=== PATIENT | male | born 1975 | race Caucasian/White ===

== ENCOUNTER 2019-02-03 15:05 | Inpatient (IN) | payer BC ==
[2019-02-03] MEDS ORDERED: Sodium Chloride 0.9% 10 ML Syringe FLUSH PRN (15:30)
[2019-02-03] MEDS ORDERED: Lactated Ringers 1,000 ML IV SCH (15:30)
[2019-02-03] MEDS ORDERED: diphenhydrAMINE 50 MG/ML SDV IVPUSH ONE (15:30)
[2019-02-03] MEDS ORDERED: LORazepam 2 MG/ML SDV IVPUSH ONE ×2 (15:32→18:39)
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
[2019-02-03] MEDS ORDERED: Lactated Ringers 1,000 ML IV ONE (18:21)
[2019-02-03] MEDS ORDERED: Multivitamins,Therapeutic Tab PO ONE (20:54)
[2019-02-03] MEDS ORDERED: Ondansetron 4 MG Tab.DIS PO PRN (21:01)
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
[2019-02-03] MEDS: Thiamine 200 MG/2 ML MDV IVPUSH SCH (21:41)
[2019-02-03] MEDS: Ondansetron 4 MG/2 ML SDV IV PRN (21:44)
[2019-02-03] MEDS: Pantoprazole 40 MG Vial IV SCH (21:49)
[2019-02-03] MEDS: Folic Acid 1 MG Tab PO SCH (21:55)
[2019-02-03] MEDS: LORazepam 1 MG Tab PO SCH (21:57)
[2019-02-03] MEDS: Nicotine 21 MG/24 Hr Patch TRDERM SCH (21:58)
[2019-02-03] MEDS: Dextrose 5%-Lactated Ringers 1,000 ML IV SCH (22:20)
[2019-02-04] MEDS: LORazepam 1 MG Tab PO SCH ×10 (01:18→23:56)
[2019-02-04] MEDS: Dextrose 5%-Lactated Ringers 1,000 ML IV SCH (05:07)
[2019-02-04] MEDS ORDERED: Potassium Chloride 10 MEQ/5 ML SDV IV ONE (07:15)
[2019-02-04] MEDS: Potassium Chloride 20 MEQ Tab.ER PO SCH ×2 (08:45→20:39)
[2019-02-04] MEDS: Folic Acid 1 MG Tab PO SCH (08:46)
[2019-02-04] MEDS: Thiamine 200 MG/2 ML MDV IVPUSH SCH (08:49)
[2019-02-04] MEDS: Pantoprazole 40 MG Vial IV SCH (08:50)
[2019-02-04] MEDS: Nicotine 21 MG/24 Hr Patch TRDERM SCH ×2 (08:51→20:43)
[2019-02-04] MEDS: Potassium Chloride 10 MEQ in Premix Bag 1 BAG IV SCH ×4 (08:53→14:28)
--- NOTE | 2019-02-04 13:29 | CR ---
Chest: Frontal view of the chest was obtained. Comparison: No prior chest x-ray. Heart size and mediastinum are normal. Lungs are clear. Bony structures are grossly intact. Impression: 1. Nothing acute is seen on frontal chest x-ray. Diagnostic code #1 I agree with preliminary report issued by [facility] ([facility] report finalized on 02/03/19, 10:52 PM Central Time).
[2019-02-04] MEDS ORDERED: Potassium Chloride 20 MEQ Tab.ER PO ONE (13:31)
[2019-02-04] MEDS: Ondansetron 4 MG/2 ML SDV IV PRN (13:52)
[2019-02-04] MEDS ORDERED: Dextrose 5%-Lact Ringers w/KCl 1,000 ML IV SCH (14:45)
--- NOTE | 2019-02-04 16:14 | PCM.PN ---
- General Info Date of Service: 02/04/19 Admission Dx/Problem (Free Text): Admission Diagnosis/Problem Admission Diagnosis/Problem Alcohol withdrawal syndrome Subjective Update: Patient did well overnight. He did not receive any unscheduled doses of lorazepam. This morning I decreased him to 1 mg of Ativan every 4 hours and late morning, early afternoon he did receive 1 more milligram orally. He is doing well now. He has been seen by discharge planning and patient has services in line to help with rehabilitation. - Review of Systems General: Reports: Fatigue HEENT: Reports: No Symptoms. Denies: Headaches, Visual Changes Pulmonary: Reports: No Symptoms. Denies: Shortness of Breath, Cough Cardiovascular: Reports: No Symptoms. Denies: Chest Pain - Patient Data Vitals - Most Recent: Last Vital Signs Temp 97.1 F 02/04/19 15:44 Pulse 76 02/04/19 02:01 Resp 16 02/04/19 15:44 BP 130/89 02/04/19 15:44 Pulse Ox 99 02/04/19 15:44 Weight - Most Recent: 150 lb 1.6 oz I&O - Last 24 Hours: Intake & Output 02/04/19 02/04/19 02/04/19 06:59 14:59 22:59 Intake Total 1475 60 1200 Output Total 675 750 Balance 800 -690 1200 Lab Results Last 24 Hours: Laboratory Results - last 24 hr 02/03/19 02/03/19 02/03/19 Range/Units 16:00 16:00 17:15 WBC (4.23-9.07) K/mm3 RBC (4.63-6.08) M/mm3 Hgb (13.7-17.5) gm/L Hct (40.1-51.0) % MCV (79.0-92.2) fl MCH (25.7-32.2) pg MCHC (32.2-35.5) g/dl RDW Std Deviation (35.1-43.9) fL Plt Count (163-337) K/mm3 MPV (9.4-12.3) fl Neut % (Auto) (34.0-67.9) % Lymph % (Auto) (21.8-53.1) % [place] % (Auto) (5.3-12.2) % Eos % (Auto) (0.8-7.0) Baso % (Auto) (0.1-1.2) % Neut # (Auto) (1.78-5.38) K/mm3 Lymph # (Auto) (1.32-3.57) K/mm3 [place] # (Auto) (0.30-0.82) K/mm3 Eos # (Auto) (0.04-0.54) K/mm3 Baso # (Auto) (0.01-0.08) K/mm3 Manual Slide Review Abnormal smear PT (9.5-12.1) SECONDS INR APTT (24-31) SECONDS Sodium 134 L (136-145) mEq/L Potassium 3.6 (3.5-5.1) mEq/L Chloride 89 L (98-107) mEq/L Carbon Dioxide 24 (21-32) mEq/L Anion Gap 24.6 H (5-15) BUN 27 H (7-18) mg/dL Creatinine 1.0 (0.7-1.3) mg/dL Est Cr Clr Drug Dosing 93.55 mL/min Estimated GFR (MDRD) > 60 (>60) mL/min BUN/Creatinine Ratio 27.0 H (14-18) Glucose 134 H (74-106) mg/dL Calcium 9.1 (8.5-10.1) mg/dL Phosphorus (2.6-4.7) mg/dL Magnesium 1.8 (1.8-2.4) mg/dl Total Bilirubin 5.0 H (0.2-1.0) mg/dL AST 304 H (15-37) U/L ALT 209 H (16-63) U/L Alkaline Phosphatase 87 (46-116) U/L Total Protein 7.8 (6.4-8.2) g/dl Albumin 4.3 (3.4-5.0) g/dl Globulin 3.5 gm/dL Albumin/Globulin Ratio 1.2 (1-2) TSH 3rd Generation 1.915 (0.358-3.74) uIU/mL Urine Opiates Screen Negative (TFSRRP=744) Ur Buprenorphine Scrn Negative (CUTOFF=10) Ur Oxycodone Screen Negative (OXU5OM=230) Urine Methadone Screen Negative (XTW4HK=114) Ur Propoxyphene Screen Negative (WQUXNF=720) Ur Barbiturates Screen Negative (IWPVKQ=268) Ur Tricyclics Screen Negative (SGOPCR=345) Ur Phencyclidine Scrn Negative (CUTOFF=25) Ur Amphetamine Screen Negative (OOBQWF=151) U Methamphetamines Scrn Negative (YZYKHI=210) U Benzodiazepines Scrn Negative (ZMVAXC=463) U Cocaine Metab Screen Negative (CUPLKP=633) U Marijuana (THC) Screen Negative (CUTOFF=50) Ethyl Alcohol 0.04 (0.00) gm% 02/03/19 02/04/19 02/04/19 Range/Units 21:25 05:03 05:03 WBC 4.08 L (4.23-9.07) K/mm3 RBC 3.82 L (4.63-6.08) M/mm3 Hgb 11.5 L D (13.7-17.5) gm/L Hct 34.4 L (40.1-51.0) % MCV 90.1 (79.0-92.2) fl MCH 30.1 (25.7-32.2) pg MCHC 33.4 (32.2-35.5) g/dl RDW Std Deviation 42.8 (35.1-43.9) fL Plt Count 136 L (163-337) K/mm3 MPV 10.4 (9.4-12.3) fl Neut % (Auto) 67.1 (34.0-67.9) % Lymph % (Auto) 19.9 L (21.8-53.1) % [place] % (Auto) 9.1 (5.3-12.2) % Eos % (Auto) 3.2 (0.8-7.0) Baso % (Auto) 0.5 (0.1-1.2) % Neut # (Auto) 2.74 (1.78-5.38) K/mm3 Lymph # (Auto) 0.81 L (1.32-3.57) K/mm3 [place] # (Auto) 0.37 (0.30-0.82) K/mm3 Eos # (Auto) 0.13 (0.04-0.54) K/mm3 Baso # (Auto) 0.02 (0.01-0.08) K/mm3 Manual Slide Review PT 10.6 (9.5-12.1) SECONDS INR 0.97 APTT 23 L (24-31) SECONDS Sodium 133 L (136-145) mEq/L Potassium 3.0 L (3.5-5.1) mEq/L Chloride 97 L (98-107) mEq/L Carbon Dioxide 32 (21-32) mEq/L Anion Gap 7.0 (5-15) BUN 20 H (7-18) mg/dL Creatinine 0.9 (0.7-1.3) mg/dL Est Cr Clr Drug Dosing 104.02 mL/min Estimated GFR (MDRD) > 60 (>60) mL/min BUN/Creatinine Ratio 22.2 H (14-18) Glucose 117 H (74-106) mg/dL Calcium 8.3 L (8.5-10.1) mg/dL Phosphorus 2.7 (2.6-4.7) mg/dL Magnesium 2.0 (1.8-2.4) mg/dl Total Bilirubin 6.2 H (0.2-1.0) mg/dL AST 191 H (15-37) U/L ALT 144 H (16-63) U/L Alkaline Phosphatase 64 (46-116) U/L Total Protein 5.9 L (6.4-8.2) g/dl Albumin 3.3 L (3.4-5.0) g/dl Globulin 2.6 gm/dL Albumin/Globulin Ratio 1.3 (1-2) TSH 3rd Generation (0.358-3.74) uIU/mL Urine Opiates Screen (AHLZUO=902) Ur Buprenorphine Scrn (CUTOFF=10) Ur Oxycodone Screen (WLI4AS=291) Urine Methadone Screen (YMY0RE=947) Ur Propoxyphene Screen (ORBOWI=516) Ur Barbiturates Screen (HFYPNG=940) Ur Tricyclics Screen (DUIHJB=724) Ur Phencyclidine Scrn (CUTOFF=25) Ur Amphetamine Screen (HZJXOR=185) U Methamphetamines Scrn (IYWWOT=215) U Benzodiazepines Scrn (BJKTIM=051) U Cocaine Metab Screen (BTVLQG=187) U Marijuana (THC) Screen (CUTOFF=50) Ethyl Alcohol (0.00) gm% Med Orders - Current: Current Medications Folic Acid (Folic Acid) 1 mg PO DAILY [facility] Stop: 02/05/19 09:01 Last Admin: 02/04/19 08:46 Dose: 1 mg Potassium Cl/Dextrose/Lact Ringer's (D5 Lr With 20 Meq Kcl) 1,000 mls @ 100 mls /hr IV ASDIRECTED CALI Last Admin: 02/04/19 14:51 Dose: 100 mls/hr Lorazepam (Ativan) 1 - 3 mg PO ASDIRECTED CALI; Protocol Last Admin: 02/04/19 13:49 Dose: 1 mg Lorazepam (Ativan) 1 mg PO Q4H [facility] Stop: 02/05/19 09:01 Last Admin: 02/04/19 13:13 Dose: 1 mg Miscellaneous Information (Remove Patch) 1 ea TRDERM DAILY [facility] Last Admin: 02/04/19 09:14 Dose: Not Given Nicotine (Habitrol) 21 mg TRDERM DAILY [facility] Last Admin: 02/04/19 08:51 Dose: 21 mg Ondansetron HCl (Zofran Odt) 4 mg PO Q4H PRN PRN Reason: nausea, able to take PO Ondansetron HCl (Zofran) 4 mg IV Q4H PRN PRN Reason: Nausea/Vomiting Last Admin: 02/04/19 13:52 Dose: 4 mg Pantoprazole Sodium (Protonix) 40 mg PO DAILY@0700 [facility] Potassium Chloride (Klor-Con M20) 20 meq PO BID [facility] Last Admin: 02/04/19 08:45 Dose: 20 meq Sodium Chloride (Saline Flush) 10 ml FLUSH ASDIRECTED PRN PRN Reason: Keep Vein Open Last Admin: 02/03/19 15:53 Dose: 10 ml Thiamine HCl (Vitamin B-1) 100 mg PO DAILY [facility] Discontinued Medications Diphenhydramine HCl (Benadryl) 25 mg IVPUSH ONETIME ONE Stop: 02/03/19 15:31 Last Admin: 02/03/19 15:52 Dose: 25 mg Lactated Ringer's (Ringers, Lactated) 1,000 mls @ 500 mls/hr IV .BOLUS [facility] Last Admin: 02/03/19 15:55 Dose: 500 mls/hr Lactated Ringer's (Ringers, Lactated) 1,000 mls @ 1,000 mls/hr IV .BOLUS ONE Stop: 02/03/19 19:20 Last Admin: 02/03/19 18:34 Dose: 1,000 mls/hr Dextrose/Lactated Ringer's (Dextrose 5%-Lactated Ringers) 1,000 mls @ 150 mls/ hr IV ASDIRECTED [facility] Last Infusion: 02/04/19 08:14 Dose: 100 mls/hr Potassium Chloride 10 meq/ (Premix) 100 mls @ 100 mls/hr IV Q1H [facility] Stop: 02/04/19 11:29 Last Admin: 02/04/19 14:28 Dose: Not Given Lorazepam (Ativan) 2 mg IVPUSH ONETIME ONE Stop: 02/03/19 15:33 Last Admin: 02/03/19 15:49 Dose: 2 mg Lorazepam (Ativan) 2 mg IVPUSH ONETIME ONE Stop: 02/03/19 18:40 Last Admin: 02/03/19 18:44 Dose: 2 mg Lorazepam (Ativan) 2 mg PO Q4H [facility] Last Admin: 02/04/19 05:06 Dose: 2 mg Multivitamins (Thera) 1 each PO ONETIME ONE Stop: 02/03/19 20:55 Last Admin: 02/03/19 21:55 Dose: 1 each Pantoprazole Sodium (Protonix Iv) 40 mg IV DAILY [facility] Last Admin: 02/04/19 08:50 Dose: 40 mg Potassium Chloride (Potassium Chloride) 40 meq IV ONETIME ONE Stop: 02/04/19 07:16 Last Admin: 02/04/19 09:20 Dose: Not Given Potassium Chloride (Klor-Con M20) 40 meq PO ONETIME ONE Stop: 02/04/19 13:32 Last Admin: 02/04/19 13:50 Dose: 40 meq Thiamine HCl (Vitamin B-1) 100 mg IVPUSH DAILY [facility] Last Admin: 02/04/19 08:49 Dose: 100 mg - Exam General: Alert, Oriented HEENT: Pupils Equal, Pupils Reactive Lungs: Clear to Auscultation, Normal Respiratory Effort Cardiovascular: Regular Rate, Regular Rhythm Neurological: No New Focal Deficit Psy/Mental Status: Alert, Depressed - Problem List & Annotations (1) Elevated liver enzymes SNOMED Code(s): 939687567 Code(s): R74.8 - ABNORMAL LEVELS OF OTHER SERUM ENZYMES Status: Acute Current Visit: Yes (2) Elevated blood pressure reading SNOMED Code(s): 59358505 Code(s): R03.0 - ELEVATED BLOOD-PRESSURE READING, W/O DIAGNOSIS OF HTN Status: Acute Current Visit: Yes (3) Alcohol abuse SNOMED Code(s): 60094755 Code(s): F10.10 - ALCOHOL ABUSE, UNCOMPLICATED Status: Acute Current Visit: Yes (4) Alcohol withdrawal syndrome SNOMED Code(s): 526037937 Code(s): F10.239 - ALCOHOL DEPENDENCE WITH WITHDRAWAL, UNSPECIFIED Status: Acute Current Visit: Yes Qualifiers: Complication of substance-induced condition: uncomplicated Qualified Code(s ): F10.230 - Alcohol dependence with withdrawal, uncomplicated - Problem List Review Problem List Initiated/Reviewed/Updated: Yes - My Orders Last 24 Hours: My Active Orders 02/03/19 20:54 Assess Neurological Status [RC] ASDIRECTED CIWAA Assessment [RC] Q1HR Notify Provider [RC] PRN Pulse Oximetry [RC] CONTINUOUS Seizure Precautions [OM.PC] Routine 02/03/19 21:00 Folic Acid 1 mg PO DAILY LORazepam [Ativan] 1 - 3 mg PO ASDIRECTED Nicotine [Habitrol] 21 mg TRDERM DAILY 02/03/19 21:01 Bedrest Bathroom Privileges [RC] ASDIRECTED Height and Weight [RC] 0400 Up With Assistance [RC] ASDIRECTED Consult to Case Management/Decorating Consultant [CONS] Routine Consult to Spiritual Care [CONS] Routine Ondansetron [Zofran ODT] 4 mg PO Q4H PRN Ondansetron [Zofran] 4 mg IV Q4H PRN Resuscitation Status Routine 02/03/19 21:04 Oxygen Therapy [RC] PRN VTE/DVT Education [RC] PER UNIT ROUTINE Vital Signs [RC] Q4HR 02/03/19 21:05 Intake and Output [RC] 04,16 Sequential Compression Device [OM.PC] Per Unit Routine 02/03/19 21:07 Antiembolic Devices [RC] PER UNIT ROUTINE 02/04/19 07:44 Abdomen Comp [US] Routine 02/04/19 09:00 LORazepam [Ativan] 1 mg PO Q4H Potassium Chloride [Klor-Con M20] 20 meq PO BID Remove Patch 1 ea TRDERM DAILY 02/04/19 14:45 Dextrose 5%-Lact Ringers w/KCl [D5 LR with 20 mEq KCl] 1,000 ml IV ASDIRECTED 02/04/19 Lunch Regular Diet [DIET] 04/20/19 07:00 Pantoprazole [ProTONIX] 40 mg PO DAILY@0700 02/05/19 09:00 Thiamine [Vitamin B-1] 100 mg PO DAILY - Plan Plan:: Neurologic: * GCS 15 * Mildly sedated * No focal deficits * Alcohol withdrawal syndrome with [facility] protocol for when necessary Ativan. Ativan 1 mg by mouth every 4 hours overnight and reassess in the morning. Cardiovascular * Hypovolemia - receiving fluid bolus of lactated Ringer's. After he gets his thiamine IV we will switch him to D5 LR with 20 mEq of normal saline at 100 mL per hour * Hypertension and tachycardia likely secondary to alcohol withdrawal. Monitor and should improve as we improve his alcohol withdrawal symptoms Pulmonology * Productive sputum * Chest x-ray negative for infiltrate Gastrointestinal * Start full liquids in the morning. * Complaint of vomiting with red liquid * Protonix 40 mg PO twice a day * Acute hepatitis - AST and ALT have decreased, but total bilirubin has increased to 6.2 * Get ultrasound of the abdomen Renal * Hypovolemia improved * Continue maintenance fluids as above Infectious disease * Normal white blood cell count and no fever. Patient does have crackles in the left lower lung * Chest x-ray were ordered Heme/onc * WBC 4.5, hemoglobin 14.0, platelet 177 Electrolytes * Hypokalemia will be treated with oral potassium. We tried IV potassium but it burned too much. Consults: Discharge planning, spiritual, addiction counselor Discharge plan for tomorrow CODE STATUS: Full code
--- NOTE | 2019-02-04 16:38 | US ---
Abdominal ultrasound: Multiple real-time images of the abdomen were obtained. Comparison: No prior abdominal imaging. Findings: Liver is slightly echogenic as compared to the kidney. This is most likely due to mild fatty infiltration. Sludge is noted within the gallbladder without shadowing gallstones. No gallbladder wall thickening or biliary duct dilatation is seen. Right and left kidneys show no hydronephrosis or mass. Right kidney length is 14.0 cm and left kidney length is 11.2 cm. Spleen size is normal. Aorta shows no aneurysm. Pancreas appears within normal limits. Inferior vena cava is patent. Portal vein shows normal hepatopedal flow. Impression: 1. Fatty infiltration within the liver. 2. Sludge within the gallbladder with no shadowing gallstones or gallbladder wall thickening. No biliary duct dilatation. 3. Other portions of the abdominal ultrasound appear within normal limits. Diagnostic code #2
[2019-02-05] MEDS: LORazepam 1 MG Tab PO SCH ×8 (00:56→21:51)
[2019-02-05] MEDS: Pantoprazole 40 MG Tab.CR PO SCH (06:04)
[2019-02-05] MEDS: Potassium Chloride 20 MEQ Tab.ER PO SCH (08:08)
[2019-02-05] MEDS: Thiamine 100 MG Tab PO SCH (08:09)
[2019-02-05] MEDS: Folic Acid 1 MG Tab PO SCH (08:09)
[2019-02-05] MEDS: Nicotine 21 MG/24 Hr Patch TRDERM SCH ×2 (16:57→21:41)
--- NOTE | 2019-02-05 19:52 | PCM.PN ---
- General Info Date of Service: 02/05/19 Admission Dx/Problem (Free Text): Admission Diagnosis/Problem Admission Diagnosis/Problem Alcohol withdrawal syndrome Subjective Update: February 05, 2019 Patient continues to improve. He is down to Ativan 1 mg by mouth every 4 hours and only need 1 additional dose throughout the day. February 04, 2019 Patient did well overnight. He did not receive any unscheduled doses of lorazepam. This morning I decreased him to 1 mg of Ativan every 4 hours and late morning, early afternoon he did receive 1 more milligram orally. He is doing well now. He has been seen by discharge planning and patient has services in line to help with rehabilitation. Functional Status: Reports: Pain Controlled - Review of Systems General: Reports: No Symptoms HEENT: Reports: No Symptoms Pulmonary: Reports: No Symptoms Cardiovascular: Reports: No Symptoms Gastrointestinal: Reports: No Symptoms. Denies: Abdominal Pain, Constipation - Patient Data Vitals - Most Recent: Last Vital Signs Temp 97.9 F 02/05/19 16:56 Pulse 67 02/05/19 16:56 Resp 16 02/05/19 16:56 BP 138/99 H 02/05/19 16:56 Pulse Ox 100 02/05/19 16:56 Weight - Most Recent: 150 lb 14.4 oz I&O - Last 24 Hours: Intake & Output 02/05/19 02/05/19 02/05/19 06:59 14:59 22:59 Intake Total 1187 240 300 Output Total 500 Balance 1187 240 -200 Lab Results Last 24 Hours: Laboratory Results - last 24 hr 02/05/19 02/05/19 Range/Units 08:29 08:29 WBC 4.94 (4.23-9.07) K/mm3 RBC 4.19 L (4.63-6.08) M/mm3 Hgb 12.8 L (13.7-17.5) gm/L Hct 38.0 L (40.1-51.0) % MCV 90.7 (79.0-92.2) fl MCH 30.5 (25.7-32.2) pg MCHC 33.7 (32.2-35.5) g/dl RDW Std Deviation 42.8 (35.1-43.9) fL Plt Count 135 L (163-337) K/mm3 MPV 10.4 (9.4-12.3) fl Neut % (Auto) 66.7 (34.0-67.9) % Lymph % (Auto) 18.2 L (21.8-53.1) % [place] % (Auto) 10.3 (5.3-12.2) % Eos % (Auto) 4.0 (0.8-7.0) Baso % (Auto) 0.6 (0.1-1.2) % Neut # (Auto) 3.29 (1.78-5.38) K/mm3 Lymph # (Auto) 0.90 L (1.32-3.57) K/mm3 [place] # (Auto) 0.51 (0.30-0.82) K/mm3 Eos # (Auto) 0.20 (0.04-0.54) K/mm3 Baso # (Auto) 0.03 (0.01-0.08) K/mm3 Sodium 136 (136-145) mEq/L Potassium 3.7 (3.5-5.1) mEq/L Chloride 101 (98-107) mEq/L Carbon Dioxide 25 (21-32) mEq/L Anion Gap 13.7 (5-15) BUN 9 (7-18) mg/dL Creatinine 0.8 (0.7-1.3) mg/dL Est Cr Clr Drug Dosing 117.64 mL/min Estimated GFR (MDRD) > 60 (>60) mL/min BUN/Creatinine Ratio 11.3 L (14-18) Glucose 109 H (74-106) mg/dL Calcium 9.2 (8.5-10.1) mg/dL Magnesium 1.8 (1.8-2.4) mg/dl Total Bilirubin 4.5 H (0.2-1.0) mg/dL AST 192 H (15-37) U/L ALT 166 H (16-63) U/L Alkaline Phosphatase 74 (46-116) U/L Total Protein 6.6 (6.4-8.2) g/dl Albumin 3.7 (3.4-5.0) g/dl Globulin 2.9 gm/dL Albumin/Globulin Ratio 1.3 (1-2) Med Orders - Current: Current Medications Lorazepam (Ativan) 1 - 3 mg PO ASDIRECTED [facility]I; Protocol Last Admin: 02/05/19 16:56 Dose: 1 mg Miscellaneous Information (Remove Patch) 1 ea TRDERM BEDTIME [facility] Last Admin: 02/04/19 20:44 Dose: 1 ea Nicotine (Habitrol) 21 mg TRDERM BEDTIME [facility] Last Admin: 02/05/19 16:57 Dose: 21 mg Ondansetron HCl (Zofran Odt) 4 mg PO Q4H PRN PRN Reason: nausea, able to take PO Ondansetron HCl (Zofran) 4 mg IV Q4H PRN PRN Reason: Nausea/Vomiting Last Admin: 02/04/19 13:52 Dose: 4 mg Pantoprazole Sodium (Protonix) 40 mg PO DAILY@0700 [facility] Last Admin: 02/05/19 06:04 Dose: 40 mg Potassium Chloride (Klor-Con M20) 20 meq PO BID [facility] Last Admin: 02/05/19 08:08 Dose: 20 meq Sodium Chloride (Saline Flush) 10 ml FLUSH ASDIRECTED PRN PRN Reason: Keep Vein Open Last Admin: 02/03/19 15:53 Dose: 10 ml Thiamine HCl (Vitamin B-1) 100 mg PO DAILY [facility] Last Admin: 02/05/19 08:09 Dose: 100 mg Discontinued Medications Diphenhydramine HCl (Benadryl) 25 mg IVPUSH ONETIME ONE Stop: 02/03/19 15:31 Last Admin: 02/03/19 15:52 Dose: 25 mg Folic Acid (Folic Acid) 1 mg PO DAILY [facility] Stop: 02/05/19 09:01 Last Admin: 02/05/19 08:09 Dose: 1 mg Lactated Ringer's (Ringers, Lactated) 1,000 mls @ 500 mls/hr IV .BOLUS [facility] Last Admin: 02/03/19 15:55 Dose: 500 mls/hr Lactated Ringer's (Ringers, Lactated) 1,000 mls @ 1,000 mls/hr IV .BOLUS ONE Stop: 02/03/19 19:20 Last Admin: 02/03/19 18:34 Dose: 1,000 mls/hr Dextrose/Lactated Ringer's (Dextrose 5%-Lactated Ringers) 1,000 mls @ 150 mls/ hr IV ASDIRECTED [facility] Last Infusion: 02/04/19 08:14 Dose: 100 mls/hr Potassium Chloride 10 meq/ (Premix) 100 mls @ 100 mls/hr IV Q1H [facility] Stop: 02/04/19 11:29 Last Admin: 02/04/19 14:28 Dose: Not Given Potassium Cl/Dextrose/Lact Ringer's (D5 Lr With 20 Meq Kcl) 1,000 mls @ 100 mls /hr IV ASDIRECTED [facility] Last Admin: 02/04/19 14:51 Dose: 100 mls/hr Lorazepam (Ativan) 2 mg IVPUSH ONETIME ONE Stop: 02/03/19 15:33 Last Admin: 02/03/19 15:49 Dose: 2 mg Lorazepam (Ativan) 2 mg IVPUSH ONETIME ONE Stop: 02/03/19 18:40 Last Admin: 02/03/19 18:44 Dose: 2 mg Lorazepam (Ativan) 2 mg PO Q4H [facility] Last Admin: 02/04/19 05:06 Dose: 2 mg Lorazepam (Ativan) 1 mg PO Q4H [facility] Stop: 02/05/19 09:01 Last Admin: 02/05/19 08:09 Dose: 1 mg Miscellaneous Information (Remove Patch) 1 ea TRDERM DAILY [facility] Last Admin: 02/04/19 09:14 Dose: Not Given Multivitamins (Thera) 1 each PO ONETIME ONE Stop: 02/03/19 20:55 Last Admin: 02/03/19 21:55 Dose: 1 each Nicotine (Habitrol) 21 mg TRDERM DAILY [facility] Last Admin: 02/04/19 08:51 Dose: 21 mg Pantoprazole Sodium (Protonix Iv) 40 mg IV DAILY [facility] Last Admin: 02/04/19 08:50 Dose: 40 mg Potassium Chloride (Potassium Chloride) 40 meq IV ONETIME ONE Stop: 02/04/19 07:16 Last Admin: 02/04/19 09:20 Dose: Not Given Potassium Chloride (Klor-Con M20) 40 meq PO ONETIME ONE Stop: 02/04/19 13:32 Last Admin: 02/04/19 13:50 Dose: 40 meq Thiamine HCl (Vitamin B-1) 100 mg IVPUSH DAILY [facility] Last Admin: 02/04/19 08:49 Dose: 100 mg - Exam General: Alert, Oriented HEENT: Pupils Equal, Pupils Reactive Neck: Supple Lungs: Clear to Auscultation, Normal Respiratory Effort Cardiovascular: Regular Rate, Regular Rhythm Extremities: Normal Inspection, Normal Range of Motion, Non-Tender, No Pedal Edema - Problem List & Annotations (1) Elevated liver enzymes SNOMED Code(s): 506894908 Code(s): R74.8 - ABNORMAL LEVELS OF OTHER SERUM ENZYMES Status: Acute Current Visit: Yes (2) Elevated blood pressure reading SNOMED Code(s): 91572655 Code(s): R03.0 - ELEVATED BLOOD-PRESSURE READING, W/O DIAGNOSIS OF HTN Status: Acute Current Visit: Yes (3) Alcohol abuse SNOMED Code(s): 37720992 Code(s): F10.10 - ALCOHOL ABUSE, UNCOMPLICATED Status: Acute Current Visit: Yes (4) Alcohol withdrawal syndrome SNOMED Code(s): 097340301 Code(s): F10.239 - ALCOHOL DEPENDENCE WITH WITHDRAWAL, UNSPECIFIED Status: Acute Current Visit: Yes Qualifiers: Complication of substance-induced condition: uncomplicated Qualified Code(s ): F10.230 - Alcohol dependence with withdrawal, uncomplicated - Problem List Review Problem List Initiated/Reviewed/Updated: Yes - My Orders Last 24 Hours: My Active Orders 02/04/19 21:00 Nicotine [Habitrol] 21 mg TRDERM BEDTIME Remove Patch 1 ea TRDERM BEDTIME 02/05/19 07:00 Pantoprazole [ProTONIX] 40 mg PO DAILY@0700 02/05/19 08:28 Patient Status [ADT] Routine 02/05/19 09:00 Thiamine [Vitamin B-1] 100 mg PO DAILY - Plan Plan:: Neurologic: * GCS 15 * Mildly sedated * No focal deficits * Alcohol withdrawal syndrome with [facility] protocol for when necessary Ativan. Stop scheduled Ativan and only use when necessary. Cardiovascular * Hypovolemia - received fluid bolus of lactated Ringer's. After he gets his thiamine IV we will switch him to D5 LR with 20 mEq of normal saline at 100 mL per hour * Hypertension and tachycardia likely secondary to alcohol withdrawal. Monitor and should improve as we improve his alcohol withdrawal symptoms Pulmonology * Productive sputum * Chest x-ray negative for infiltrate Gastrointestinal * Advancing diet. * Nausea and vomiting resolved * Protonix 40 mg PO twice a day * Acute hepatitis - AST and ALT have decreased, and total bilirubin is decreasing * ultrasound of the abdomen Showed fatty infiltration of the liver Renal * Hypovolemia improved * DC fluids Infectious disease * Normal white blood cell count and no fever. Patient does have crackles in the left lower lung * Chest xray normal Heme/onc * CBC normal Electrolytes * Hypokalemia resolved Consults: Discharge planning, spiritual, addiction counselor Discharge plan for tomorrow CODE STATUS: Full code
[2019-02-06] MEDS: LORazepam 1 MG Tab PO SCH (03:26)
[2019-02-06] MEDS: Pantoprazole 40 MG Tab.CR PO SCH (06:20)
[2019-02-06] MEDS ORDERED: Magnesium Oxide 400 MG Tab PO ONE (09:28)
[2019-02-06] MEDS: Thiamine 100 MG Tab PO SCH (12:09)
--- NOTE | 2019-02-06 12:47 | PCM.DCSUM1 ---
Discharge Summary - Hospital Course HPI Initial Comments: This is a 43-year-old male who was brought to the emergency room via EMS. Patient came in because of not feeling well, nausea, and vomiting. He states he has had some red in his vomitus. He has been a heavy drinker for the last 2 months with up to 1800 mL of whiskey the last 3-4 days. His last drink was last night, but he woke up at 2:30 in the morning with nausea and vomiting. 2 months ago he moved from [place], [place] to [place]. He left his and daughter has started drinking heavily. He states he has not been eating or drinking water for last several days. He's had a 15 pound weight loss over the last 2 months. He has been a binge drinker off and on for years. He has never had significant alcohol withdrawal and has never been hospitalized. He states he does have some reflux. Currently patient states that if he stairs with light it seems to play funny tricks on him in twisting turns. He is hearing voices of his left ureter. The last one to 2 weeks. He does chew tobacco. Approximately half a can per day. He currently denies any abdominal pain but does complain of cough. He denies any fever or chills. He has no black tarry stools. He has been spitting up sputum which is clear. He does complain of some shaking. He has some abdominal cramping at times but not currently. Brief History: Patient was initially treated in the ICU with scheduled doses of Ativan and we've weaned him down ultimately to as needed. He did have some episodes of tachycardia on the day before discharge with ambulation that has mostly resolved. Patient is planning on following up with and his pentecostal. Diagnosis: Stroke: No - Discharge Data Discharge Date: 02/06/19 Discharge Disposition: Home, Self-Care 01 Condition: Good - Discharge Diagnosis/Problem(s) (1) Elevated liver enzymes SNOMED Code(s): 668100055 ICD Code: R74.8 - ABNORMAL LEVELS OF OTHER SERUM ENZYMES Status: Acute Current Visit: Yes (2) Elevated blood pressure reading SNOMED Code(s): 83024408 ICD Code: R03.0 - ELEVATED BLOOD-PRESSURE READING, W/O DIAGNOSIS OF HTN Status: Acute Current Visit: Yes (3) Alcohol abuse SNOMED Code(s): 93216139 ICD Code: F10.10 - ALCOHOL ABUSE, UNCOMPLICATED Status: Acute Current Visit: Yes (4) Alcohol withdrawal syndrome SNOMED Code(s): 493587664 ICD Code: F10.239 - ALCOHOL DEPENDENCE WITH WITHDRAWAL, UNSPECIFIED Status : Acute Current Visit: Yes Qualifiers: Complication of substance-induced condition: uncomplicated Qualified Code(s ): F10.230 - Alcohol dependence with withdrawal, uncomplicated - Patient Summary/Data Consults: Consultations 02/03/19 21:01 Consult to Case Management/Wash Box Operator [CONS] Routine Consult to Spiritual Care [CONS] Routine - Patient Instructions Diet: Usual Diet as Tolerated Activity: As Tolerated Driving: Do Not Drive (May drive tomorrow) Showering/Bathing: May Shower Notify Provider of: Nausea and/or Vomiting - Discharge Plan *PRESCRIPTION DRUG MONITORING PROGRAM REVIEWED*: Not Applicable *COPY OF PRESCRIPTION DRUG MONITORING REPORT IN PATIENT ANGEL: Not Applicable Prescriptions/Med Rec: LORazepam [Ativan] 1 mg PO BEDTIME PRN #2 tablet PRN Reason: Insomnia Thiamine [Vitamin B-1] 100 mg PO DAILY #30 tablet Home Medications: Home Meds Omeprazole 20 mg PO DAILY 02/03/19 [History] LORazepam [Ativan] 1 mg PO BEDTIME PRN #2 tablet 02/06/19 [Rx] Thiamine [Vitamin B-1] 100 mg PO DAILY #30 tablet 02/06/19 [Rx] Oxygen Therapy Mode: Room Air Patient Handouts: Alcohol Use Disorder, Liver Function Tests, Recovering From Addiction Referrals: Arun Bass MD [Physician] - (Please call Dr. Del Angel's office at [phone], and schedule and apt. in 7-10 days. ) - Discharge Summary/Plan Comment DC Time >30 min.: Yes Discharge Summary/Plan Comment: Patient came in for alcohol detox and did well. On day of discharge he is stable , has negative CIWA, and not receiving any when necessary Ativan. He does request Ativan 1 mg 4 bedtime for the next couple nights because his day night is mixed up. Patient plans on establishing with Dr. Del Angel is a new patient. Patient also has plans on following up with and his pentecostal. He was seen by substance abuse counselor while in the hospital as well as our business planner and social science analyst. - General Info Date of Service: 02/06/19 Admission Dx/Problem (Free Text: Admission Diagnosis/Problem Admission Diagnosis/Problem Alcohol withdrawal syndrome Subjective Update: February 06, 2019 Patient had a couple of episodes of tachycardia up to 150 with ambulation and when he was going to the bathroom. That has resolved and he was walking the halls with his pulse staying in the low 100s. February 05, 2019 Patient continues to improve. He is down to Ativan 1 mg by mouth every 4 hours and only need 1 additional dose throughout the day. February 04, 2019 Patient did well overnight. He did not receive any unscheduled doses of lorazepam. This morning I decreased him to 1 mg of Ativan every 4 hours and late morning, early afternoon he did receive 1 more milligram orally. He is doing well now. He has been seen by discharge planning and patient has services in line to help with rehabilitation. Functional Status: Reports: Pain Controlled - Review of Systems General: Reports: No Symptoms. Denies: Fever, Weakness, Fatigue HEENT: Reports: No Symptoms Pulmonary: Reports: No Symptoms. Denies: Shortness of Breath, Cough Cardiovascular: Reports: No Symptoms. Denies: Chest Pain, Dyspnea on Exertion - Patient Data Vitals - Most Recent: Last Vital Signs Temp 97.3 F 02/06/19 08:11 Pulse 65 02/06/19 08:11 Resp 16 02/06/19 08:11 BP 117/79 02/06/19 08:11 Pulse Ox 99 02/06/19 08:11 Weight - Most Recent: 150 lb 8 oz I&O - Last 24 hours: Intake & Output 02/05/19 02/06/19 02/06/19 22:59 06:59 14:59 Intake Total 300 1240 240 Output Total 500 Balance -200 1240 240 Lab Results - Last 24 hrs: Laboratory Results - last 24 hr 02/06/19 02/06/19 Range/Units 06:05 06:05 WBC 5.53 (4.23-9.07) K/mm3 RBC 4.28 L (4.63-6.08) M/mm3 Hgb 13.1 L (13.7-17.5) gm/L Hct 38.9 L (40.1-51.0) % MCV 90.9 (79.0-92.2) fl MCH 30.6 (25.7-32.2) pg MCHC 33.7 (32.2-35.5) g/dl RDW Std Deviation 43.3 (35.1-43.9) fL Plt Count 168 (163-337) K/mm3 MPV 10.7 (9.4-12.3) fl Neut % (Auto) 65.3 (34.0-67.9) % Lymph % (Auto) 18.4 L (21.8-53.1) % Talbot % (Auto) 11.8 (5.3-12.2) % Eos % (Auto) 3.6 (0.8-7.0) Baso % (Auto) 0.5 (0.1-1.2) % Neut # (Auto) 3.61 (1.78-5.38) K/mm3 Lymph # (Auto) 1.02 L (1.32-3.57) K/mm3 Talbot # (Auto) 0.65 (0.30-0.82) K/mm3 Eos # (Auto) 0.20 (0.04-0.54) K/mm3 Baso # (Auto) 0.03 (0.01-0.08) K/mm3 Sodium 133 L (136-145) mEq/L Potassium 4.1 (3.5-5.1) mEq/L Chloride 97 L (98-107) mEq/L Carbon Dioxide 27 (21-32) mEq/L Anion Gap 13.1 (5-15) BUN 10 (7-18) mg/dL Creatinine 0.8 (0.7-1.3) mg/dL Est Cr Clr Drug Dosing 117.33 mL/min Estimated GFR (MDRD) > 60 (>60) mL/min BUN/Creatinine Ratio 12.5 L (14-18) Glucose 107 H (74-106) mg/dL Calcium 9.1 (8.5-10.1) mg/dL Magnesium 1.6 L (1.8-2.4) mg/dl Total Bilirubin 2.8 H (0.2-1.0) mg/dL AST 270 H (15-37) U/L ALT 227 H (16-63) U/L Alkaline Phosphatase 90 (46-116) U/L Total Protein 7.0 (6.4-8.2) g/dl Albumin 3.8 (3.4-5.0) g/dl Globulin 3.2 gm/dL Albumin/Globulin Ratio 1.2 (1-2) Med Orders - Current: Current Medications Lorazepam (Ativan) 1 - 3 mg PO ASDIRECTED [facility]; Protocol Last Admin: 02/06/19 03:26 Dose: 1 mg Miscellaneous Information (Remove Patch) 1 ea TRDERM BEDTIME [facility] Last Admin: 02/05/19 21:41 Dose: Not Given Nicotine (Habitrol) 21 mg TRDERM BEDTIME [facility] Last Admin: 02/05/19 21:41 Dose: Not Given Ondansetron HCl (Zofran Odt) 4 mg PO Q4H PRN PRN Reason: nausea, able to take PO Ondansetron HCl (Zofran) 4 mg IV Q4H PRN PRN Reason: Nausea/Vomiting Last Admin: 02/04/19 13:52 Dose: 4 mg Pantoprazole Sodium (Protonix) 40 mg PO DAILY@0700 [facility] Last Admin: 02/06/19 06:20 Dose: 40 mg Sodium Chloride (Saline Flush) 10 ml FLUSH ASDIRECTED PRN PRN Reason: Keep Vein Open Last Admin: 02/03/19 15:53 Dose: 10 ml Thiamine HCl (Vitamin B-1) 100 mg PO DAILY [facility] Last Admin: 02/06/19 12:09 Dose: 100 mg Discontinued Medications Diphenhydramine HCl (Benadryl) 25 mg IVPUSH ONETIME ONE Stop: 02/03/19 15:31 Last Admin: 02/03/19 15:52 Dose: 25 mg Folic Acid (Folic Acid) 1 mg PO DAILY [facility] Stop: 02/05/19 09:01 Last Admin: 02/05/19 08:09 Dose: 1 mg Lactated Ringer's (Ringers, Lactated) 1,000 mls @ 500 mls/hr IV .BOLUS [facility] Last Admin: 02/03/19 15:55 Dose: 500 mls/hr Lactated Ringer's (Ringers, Lactated) 1,000 mls @ 1,000 mls/hr IV .BOLUS ONE Stop: 02/03/19 19:20 Last Admin: 02/03/19 18:34 Dose: 1,000 mls/hr Dextrose/Lactated Ringer's (Dextrose 5%-Lactated Ringers) 1,000 mls @ 150 mls/ hr IV ASDIRECTED [facility] Last Infusion: 02/04/19 08:14 Dose: 100 mls/hr Potassium Chloride 10 meq/ (Premix) 100 mls @ 100 mls/hr IV Q1H [facility] Stop: 02/04/19 11:29 Last Admin: 02/04/19 14:28 Dose: Not Given Potassium Cl/Dextrose/Lact Ringer's (D5 Lr With 20 Meq Kcl) 1,000 mls @ 100 mls /hr IV ASDIRECTED [facility] Last Admin: 02/04/19 14:51 Dose: 100 mls/hr Lorazepam (Ativan) 2 mg IVPUSH ONETIME ONE Stop: 02/03/19 15:33 Last Admin: 02/03/19 15:49 Dose: 2 mg Lorazepam (Ativan) 2 mg IVPUSH ONETIME ONE Stop: 02/03/19 18:40 Last Admin: 02/03/19 18:44 Dose: 2 mg Lorazepam (Ativan) 2 mg PO Q4H [facility] Last Admin: 02/04/19 05:06 Dose: 2 mg Lorazepam (Ativan) 1 mg PO Q4H [facility] Stop: 02/05/19 09:01 Last Admin: 02/05/19 08:09 Dose: 1 mg Magnesium Oxide (Magnesium Oxide) 800 mg PO ONETIME ONE Stop: 02/06/19 09:29 Last Admin: 02/06/19 12:09 Dose: 800 mg Miscellaneous Information (Remove Patch) 1 ea TRDERM DAILY [facility] Last Admin: 02/04/19 09:14 Dose: Not Given Multivitamins (Thera) 1 each PO ONETIME ONE Stop: 02/03/19 20:55 Last Admin: 02/03/19 21:55 Dose: 1 each Nicotine (Habitrol) 21 mg TRDERM DAILY [facility] Last Admin: 02/04/19 08:51 Dose: 21 mg Pantoprazole Sodium (Protonix Iv) 40 mg IV DAILY [facility] Last Admin: 02/04/19 08:50 Dose: 40 mg Potassium Chloride (Klor-Con M20) 20 meq PO BID [facility] Last Admin: 02/05/19 08:08 Dose: 20 meq Potassium Chloride (Potassium Chloride) 40 meq IV ONETIME ONE Stop: 02/04/19 07:16 Last Admin: 02/04/19 09:20 Dose: Not Given Potassium Chloride (Klor-Con M20) 40 meq PO ONETIME ONE Stop: 02/04/19 13:32 Last Admin: 02/04/19 13:50 Dose: 40 meq Thiamine HCl (Vitamin B-1) 100 mg IVPUSH DAILY [facility] Last Admin: 02/04/19 08:49 Dose: 100 mg - Exam General: Reports: Alert, Oriented HEENT: Reports: Pupils Equal Neck: Reports: Supple Lungs: Reports: Clear to Auscultation, Normal Respiratory Effort Cardiovascular: Reports: Regular Rate, Regular Rhythm Extremities: Normal Inspection, Normal Range of Motion, No Pedal Edema, Normal Capillary Refill Skin: Reports: Warm, Dry, Intact Psy/Mental Status: Reports: Alert, Normal Affect, Normal Mood
== END 2019-02-06 13:25 | disposition home or self-care (01) | DRG 775 ==
LOC: JD.ED 15:05 → JD.ICU 18:56 → JD.MS 02-05 16:00
PROVIDERS: ADMIT Family Medicine; ATTEND Family Medicine
DX: F10.239 Alcohol dependence with withdrawal, unspecified (principal); K21.9 Gastro-esophageal reflux disease without esophagitis; F17.220 Nicotine dependence, chewing tobacco, uncomplicated; R74.8 Abnormal levels of other serum enzymes; E86.1 Hypovolemia; E87.6 Hypokalemia; K70.10 Alcoholic hepatitis without ascites; Z88.0 Allergy status to penicillin; Z79.899 Other long term (current) drug therapy
CPT/HCPCS: 36415; 71045; 71045-26; 76700; 76700-26; 80053; 80306; 83735; 84100; 84443; 85025; 85610; 85730; 96361; 96374; 96375; 96376; 99284; 99285-25; A9270-GY; C9113; G0480; J1200; J2060; J2405; J3411; J3480; J7042; J7120

== ENCOUNTER 2019-07-18 18:57 | Inpatient (IN) | payer BC, MEDICAID, OTHER ==
[2019-07-18] MEDS ORDERED: Metoclopramide 10 MG/2 ML SDV IVPUSH ONE (19:17)
[2019-07-18] MEDS ORDERED: LORazepam 2 MG/ML SDV IVPUSH ONE (19:18)
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
[2019-07-18] MEDS ORDERED: Dextrose 5%-0.9% NaCl 1,000 ML IV SCH ×2 (19:30→21:00)
[2019-07-18] MEDS ORDERED: Thiamine 200 MG/2 ML MDV IVPUSH ONE (19:30)
[2019-07-18] MEDS ORDERED: Potassium Chloride 10 MEQ in Premix Bag 1 BAG IV ONE (20:57)
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
[2019-07-18] MEDS ORDERED: Ondansetron 4 MG/2 ML SDV IV PRN (22:52)
[2019-07-19] MEDS: Dextrose 5%-0.9% NaCl with KCl 1,000 ML IV SCH ×3 (00:38→15:46)
[2019-07-19] MEDS: LORazepam 1 MG Tab PO PRN ×3 (00:39→08:43)
[2019-07-19] MEDS: Thiamine 200 MG/2 ML MDV IVPUSH SCH ×4 (00:41→23:45)
[2019-07-19] MEDS: LORazepam 2 MG/ML SDV IVPUSH PRN ×9 (01:28→23:54)
[2019-07-19] MEDS: Folic Acid 1 MG Tab PO SCH (08:10)
[2019-07-19] MEDS ORDERED: Magnesium Sulfate/Water 2 GM in Premix Bag 1 BAG IV ONE (08:21)
[2019-07-19] MEDS: chlordiazePOXIDE 25 MG Cap PO SCH ×3 (08:44→20:28)
[2019-07-19] MEDS: Magnesium Oxide 400 MG Tab PO SCH ×2 (08:44→20:28)
[2019-07-19] MEDS: Potassium Chloride 10 MEQ in Premix Bag 1 BAG IV SCH ×4 (08:49→11:49)
--- NOTE | 2019-07-19 08:58 | CR ---
Chest: Portable view of the chest was obtained. Comparison: Prior chest x-ray of 02/03/19. Heart size and mediastinum are normal. Slight parenchymal scarring noted within both upper lungs which is stable. Lungs are clear with no acute parenchymal change. Bony structures are grossly intact. Impression: 1. Nothing acute is seen on portable chest x-ray. Diagnostic code #2
--- NOTE | 2019-07-19 08:58 | US ---
Abdominal ultrasound: Multiple real-time images of the abdomen were obtained. Comparison: Previous abdominal ultrasound exam of 02/04/19. Findings: Liver is slightly echogenic. No focal parenchymal abnormality is otherwise seen within the liver. Gallbladder shows evidence of sludge but no gallbladder wall thickening or shadowing gallstones are seen. No biliary duct dilatation is seen. Right kidney shows a slightly prominent collecting system which is more prominent than on previous exam. Left kidney is unremarkable. Right kidney length is 13.6 cm and left kidney length is 11.6 cm. Aorta shows no aneurysm. Inferior vena cava is patent. Portal vein shows normal hepatopedal flow. Pancreas shows no discrete abnormality. Spleen size is normal. Impression: 1. Slightly prominent collecting system of the right kidney which is more prominent than on previous exam. Uncertain if this represents a so-called functional UPJ obstruction or represents other obstruction. If patient has symptoms to the right kidney, intravenous urogram study could be obtained to further evaluate. 2. Slightly echogenic liver most likely representing mild fatty infiltration which is stable from previous exam. 3. Sludge within the gallbladder with no shadowing gallstones. No gallbladder wall thickening or biliary duct dilatation is seen. Diagnostic code #3
--- NOTE | 2019-07-19 11:02 | PCM.PN ---
- General Info Date of Service: 07/19/19 Admission Dx/Problem (Free Text): Admission Diagnosis/Problem Admission Diagnosis/Problem Alcoholism Subjective Update: Patient is more awake and talking today. He confirmed that he is drinking 750 mL of whiskey a day. Patient never followed up with [facility]. His appetite has improved and he is requesting a regular diet. Functional Status: Reports: Pain Controlled - Review of Systems General: Reports: No Symptoms HEENT: Reports: No Symptoms Pulmonary: Reports: No Symptoms Cardiovascular: Reports: No Symptoms Gastrointestinal: Reports: No Symptoms - Patient Data Vitals - Most Recent: Last Vital Signs Temp 99.2 F 07/19/19 08:00 Pulse 112 H 07/19/19 08:05 Resp 16 07/19/19 08:00 BP 123/80 07/19/19 08:00 Pulse Ox 96 07/19/19 08:05 Weight - Most Recent: 131 lb 6.328 oz I&O - Last 24 Hours: Intake & Output 07/18/19 07/19/19 07/19/19 22:59 06:59 14:59 Intake Total 1124 860 Output Total 500 500 Balance 624 360 Lab Results Last 24 Hours: Laboratory Results - last 24 hr 07/18/19 07/18/19 07/18/19 Range/Units 19:35 19:35 19:35 WBC (4.23-9.07) K/mm3 RBC (4.63-6.08) M/mm3 Hgb (13.7-17.5) gm/dl Hct (40.1-51.0) % MCV (79.0-92.2) fl MCH (25.7-32.2) pg MCHC (32.2-35.5) g/dl RDW Std Deviation (35.1-43.9) fL Plt Count (163-337) K/mm3 MPV (9.4-12.3) fl Neut % (Auto) (34.0-67.9) % Lymph % (Auto) (21.8-53.1) % [place] % (Auto) (5.3-12.2) % Eos % (Auto) (0.8-7.0) Baso % (Auto) (0.1-1.2) % Neut # (Auto) (1.78-5.38) K/mm3 Lymph # (Auto) (1.32-3.57) K/mm3 [place] # (Auto) (0.30-0.82) K/mm3 Eos # (Auto) (0.04-0.54) K/mm3 Baso # (Auto) (0.01-0.08) K/mm3 Manual Slide Review PT 10.8 (9.7-12.0) SECONDS INR 0.99 APTT 23 (22-31) SECONDS Sodium 133 L (136-145) mEq/L Potassium 3.5 (3.5-5.1) mEq/L Chloride 88 L (98-107) mEq/L Carbon Dioxide 23 (21-32) mEq/L Anion Gap 25.5 H (5-15) BUN 25 H (7-18) mg/dL Creatinine 0.9 (0.7-1.3) mg/dL Est Cr Clr Drug Dosing 97.02 mL/min Estimated GFR (MDRD) > 60 (>60) mL/min BUN/Creatinine Ratio 27.8 H (14-18) Glucose 139 H (74-106) mg/dL Serum Osmolality 417 H (280-300) mosm/kg Lactic Acid 5.8 H (0.4-2.0) mmol/L Calcium 8.8 (8.5-10.1) mg/dL Magnesium 2.2 (1.8-2.4) mg/dl Total Bilirubin 2.6 H (0.2-1.0) mg/dL AST 282 H (15-37) U/L ALT 257 H (16-63) U/L Alkaline Phosphatase 87 (46-116) U/L C-Reactive Protein < 0.2 (<1.0) mg/dL Total Protein 8.1 (6.4-8.2) g/dl Albumin 4.6 (3.4-5.0) g/dl Globulin 3.5 gm/dL Albumin/Globulin Ratio 1.3 (1-2) Lipase (73-393) U/L Urine Color (Yellow) Urine Appearance (Clear) Urine pH (5.0-8.0) Ur Specific [employer] (1.005-1.030) Urine Protein (Negative) Urine Glucose (UA) (Negative) Urine Ketones (Negative) Urine Occult Blood (Negative) Urine Nitrite (Negative) Urine Bilirubin (Negative) Urine Urobilinogen (0.2-1.0) Ur Leukocyte Esterase (Negative) Urine RBC (0-5) /hpf Urine WBC (0-5) /hpf Ur Squamous Epith Cells (0-5) /hpf Urine Bacteria (FEW) /hpf Urine Mucus (FEW) /hpf Urine Opiates Screen (XLPHOM=729) Ur Buprenorphine Scrn (CUTOFF=10) Ur Oxycodone Screen (NZY5RM=695) Urine Methadone Screen (YLW5WR=714) Ur Propoxyphene Screen (OKKQKK=218) Ur Barbiturates Screen (CPLSMS=286) Ur Tricyclics Screen (XDDJIB=829) Ur Phencyclidine Scrn (CUTOFF=25) Ur Amphetamine Screen (VOMQYC=148) U Methamphetamines Scrn (KRMZFC=940) U Benzodiazepines Scrn (GGVJXT=537) U Cocaine Metab Screen (CHKVSQ=140) U Marijuana (THC) Screen (CUTOFF=50) Ethyl Alcohol 0.45 (0.00) gm% Ketones (0.0-0.3) mM 07/18/19 07/18/19 07/18/19 Range/Units 19:48 19:48 19:48 WBC 2.82 L (4.23-9.07) K/mm3 RBC 4.94 (4.63-6.08) M/mm3 Hgb 15.6 D (13.7-17.5) gm/dl Hct 43.6 (40.1-51.0) % MCV 88.3 (79.0-92.2) fl MCH 31.6 (25.7-32.2) pg MCHC 35.8 H (32.2-35.5) g/dl RDW Std Deviation 41.5 (35.1-43.9) fL Plt Count 149 L (163-337) K/mm3 MPV 9.6 (9.4-12.3) fl Neut % (Auto) 54.6 (34.0-67.9) % Lymph % (Auto) 29.4 (21.8-53.1) % [place] % (Auto) 12.1 (5.3-12.2) % Eos % (Auto) 0.7 L (0.8-7.0) Baso % (Auto) 3.2 H (0.1-1.2) % Neut # (Auto) 1.54 L (1.78-5.38) K/mm3 Lymph # (Auto) 0.83 L (1.32-3.57) K/mm3 [place] # (Auto) 0.34 (0.30-0.82) K/mm3 Eos # (Auto) 0.02 L (0.04-0.54) K/mm3 Baso # (Auto) 0.09 H (0.01-0.08) K/mm3 Manual Slide Review Abnormal smear PT (9.7-12.0) SECONDS INR APTT (22-31) SECONDS Sodium (136-145) mEq/L Potassium (3.5-5.1) mEq/L Chloride (98-107) mEq/L Carbon Dioxide (21-32) mEq/L Anion Gap (5-15) BUN (7-18) mg/dL Creatinine (0.7-1.3) mg/dL Est Cr Clr Drug Dosing mL/min Estimated GFR (MDRD) (>60) mL/min BUN/Creatinine Ratio (14-18) Glucose (74-106) mg/dL Serum Osmolality (280-300) mosm/kg Lactic Acid (0.4-2.0) mmol/L Calcium (8.5-10.1) mg/dL Magnesium (1.8-2.4) mg/dl Total Bilirubin (0.2-1.0) mg/dL AST (15-37) U/L ALT (16-63) U/L Alkaline Phosphatase (46-116) U/L C-Reactive Protein (<1.0) mg/dL Total Protein (6.4-8.2) g/dl Albumin (3.4-5.0) g/dl Globulin gm/dL Albumin/Globulin Ratio (1-2) Lipase 353 (73-393) U/L Urine Color (Yellow) Urine Appearance (Clear) Urine pH (5.0-8.0) Ur Specific [employer] (1.005-1.030) Urine Protein (Negative) Urine Glucose (UA) (Negative) Urine Ketones (Negative) Urine Occult Blood (Negative) Urine Nitrite (Negative) Urine Bilirubin (Negative) Urine Urobilinogen (0.2-1.0) Ur Leukocyte Esterase (Negative) Urine RBC (0-5) /hpf Urine WBC (0-5) /hpf Ur Squamous Epith Cells (0-5) /hpf Urine Bacteria (FEW) /hpf Urine Mucus (FEW) /hpf Urine Opiates Screen (HZUEZT=994) Ur Buprenorphine Scrn (CUTOFF=10) Ur Oxycodone Screen (EXE6TO=941) Urine Methadone Screen (FSC9HG=829) Ur Propoxyphene Screen (SSAEKX=344) Ur Barbiturates Screen (PPGMUM=432) Ur Tricyclics Screen (IMGVVM=720) Ur Phencyclidine Scrn (CUTOFF=25) Ur Amphetamine Screen (AXOFKX=702) U Methamphetamines Scrn (JKDEQD=956) U Benzodiazepines Scrn (SAPMYA=557) U Cocaine Metab Screen (CEPORY=028) U Marijuana (THC) Screen (CUTOFF=50) Ethyl Alcohol (0.00) gm% Ketones 2.96 (0.0-0.3) mM 07/18/19 07/18/19 07/19/19 Range/Units 22:26 22:53 05:45 WBC 2.04 L* (4.23-9.07) K/mm3 RBC 3.74 L (4.63-6.08) M/mm3 Hgb 11.9 L D (13.7-17.5) gm/dl Hct 33.8 L (40.1-51.0) % MCV 90.4 (79.0-92.2) fl MCH 31.8 (25.7-32.2) pg MCHC 35.2 (32.2-35.5) g/dl RDW Std Deviation 41.4 (35.1-43.9) fL Plt Count 92 L (163-337) K/mm3 MPV 9.7 (9.4-12.3) fl Neut % (Auto) 60.7 (34.0-67.9) % Lymph % (Auto) 17.2 L (21.8-53.1) % [place] % (Auto) 18.6 H (5.3-12.2) % Eos % (Auto) 1.5 (0.8-7.0) Baso % (Auto) 2.0 H (0.1-1.2) % Neut # (Auto) 1.24 L (1.78-5.38) K/mm3 Lymph # (Auto) 0.35 L (1.32-3.57) K/mm3 [place] # (Auto) 0.38 (0.30-0.82) K/mm3 Eos # (Auto) 0.03 L (0.04-0.54) K/mm3 Baso # (Auto) 0.04 (0.01-0.08) K/mm3 Manual Slide Review Abnormal smear PT (9.7-12.0) SECONDS INR APTT (22-31) SECONDS Sodium (136-145) mEq/L Potassium (3.5-5.1) mEq/L Chloride (98-107) mEq/L Carbon Dioxide (21-32) mEq/L Anion Gap (5-15) BUN (7-18) mg/dL Creatinine (0.7-1.3) mg/dL Est Cr Clr Drug Dosing mL/min Estimated GFR (MDRD) (>60) mL/min BUN/Creatinine Ratio (14-18) Glucose (74-106) mg/dL Serum Osmolality (280-300) mosm/kg Lactic Acid (0.4-2.0) mmol/L Calcium (8.5-10.1) mg/dL Magnesium (1.8-2.4) mg/dl Total Bilirubin (0.2-1.0) mg/dL AST (15-37) U/L ALT (16-63) U/L Alkaline Phosphatase (46-116) U/L C-Reactive Protein (<1.0) mg/dL Total Protein (6.4-8.2) g/dl Albumin (3.4-5.0) g/dl Globulin gm/dL Albumin/Globulin Ratio (1-2) Lipase (73-393) U/L Urine Color Yellow (Yellow) Urine Appearance Clear (Clear) Urine pH 6.0 (5.0-8.0) Ur Specific [employer] > or = 1.030 (1.005-1.030) Urine Protein 2+ H (Negative) Urine Glucose (UA) 2+ H (Negative) Urine Ketones 2+ H (Negative) Urine Occult Blood Trace-lysed H (Negative) Urine Nitrite Negative (Negative) Urine Bilirubin Negative (Negative) Urine Urobilinogen 0.2 (0.2-1.0) Ur Leukocyte Esterase Negative (Negative) Urine RBC 0-5 (0-5) /hpf Urine WBC 0-5 (0-5) /hpf Ur Squamous Epith Cells 0-5 (0-5) /hpf Urine Bacteria Occasional (FEW) /hpf Urine Mucus Moderate H (FEW) /hpf Urine Opiates Screen Negative (TOGLVD=091) Ur Buprenorphine Scrn Negative (CUTOFF=10) Ur Oxycodone Screen Negative (BHU1QH=110) Urine Methadone Screen Negative (YTQ9XK=480) Ur Propoxyphene Screen Negative (APZOGG=075) Ur Barbiturates Screen Negative (DDNJYK=062) Ur Tricyclics Screen Negative (BSJINB=530) Ur Phencyclidine Scrn Negative (CUTOFF=25) Ur Amphetamine Screen Negative (HUFPED=418) U Methamphetamines Scrn Negative (MQZBUF=188) U Benzodiazepines Scrn Negative (EKWFBC=331) U Cocaine Metab Screen Negative (QVGZIH=938) U Marijuana (THC) Screen Negative (CUTOFF=50) Ethyl Alcohol (0.00) gm% Ketones (0.0-0.3) mM 07/19/19 07/19/19 Range/Units 05:45 05:45 WBC (4.23-9.07) K/mm3 RBC (4.63-6.08) M/mm3 Hgb (13.7-17.5) gm/dl Hct (40.1-51.0) % MCV (79.0-92.2) fl MCH (25.7-32.2) pg MCHC (32.2-35.5) g/dl RDW Std Deviation (35.1-43.9) fL Plt Count (163-337) K/mm3 MPV (9.4-12.3) fl Neut % (Auto) (34.0-67.9) % Lymph % (Auto) (21.8-53.1) % [place] % (Auto) (5.3-12.2) % Eos % (Auto) (0.8-7.0) Baso % (Auto) (0.1-1.2) % Neut # (Auto) (1.78-5.38) K/mm3 Lymph # (Auto) (1.32-3.57) K/mm3 [place] # (Auto) (0.30-0.82) K/mm3 Eos # (Auto) (0.04-0.54) K/mm3 Baso # (Auto) (0.01-0.08) K/mm3 Manual Slide Review PT (9.7-12.0) SECONDS INR APTT (22-31) SECONDS Sodium 135 L (136-145) mEq/L Potassium 3.3 L (3.5-5.1) mEq/L Chloride 98 (98-107) mEq/L Carbon Dioxide 28 (21-32) mEq/L Anion Gap 12.3 (5-15) BUN 14 (7-18) mg/dL Creatinine 0.8 (0.7-1.3) mg/dL Est Cr Clr Drug Dosing TNP mL/min Estimated GFR (MDRD) > 60 (>60) mL/min BUN/Creatinine Ratio 17.5 (14-18) Glucose 242 H (74-106) mg/dL Serum Osmolality (280-300) mosm/kg Lactic Acid 3.8 H (0.4-2.0) mmol/L Calcium 8.0 L (8.5-10.1) mg/dL Magnesium 1.8 (1.8-2.4) mg/dl Total Bilirubin 2.1 H (0.2-1.0) mg/dL AST 195 H (15-37) U/L ALT 181 H (16-63) U/L Alkaline Phosphatase 61 (46-116) U/L C-Reactive Protein (<1.0) mg/dL Total Protein 5.9 L (6.4-8.2) g/dl Albumin 3.3 L (3.4-5.0) g/dl Globulin 2.6 gm/dL Albumin/Globulin Ratio 1.3 (1-2) Lipase (73-393) U/L Urine Color (Yellow) Urine Appearance (Clear) Urine pH (5.0-8.0) Ur Specific [employer] (1.005-1.030) Urine Protein (Negative) Urine Glucose (UA) (Negative) Urine Ketones (Negative) Urine Occult Blood (Negative) Urine Nitrite (Negative) Urine Bilirubin (Negative) Urine Urobilinogen (0.2-1.0) Ur Leukocyte Esterase (Negative) Urine RBC (0-5) /hpf Urine WBC (0-5) /hpf Ur Squamous Epith Cells (0-5) /hpf Urine Bacteria (FEW) /hpf Urine Mucus (FEW) /hpf Urine Opiates Screen (DVCWPA=120) Ur Buprenorphine Scrn (CUTOFF=10) Ur Oxycodone Screen (NED8BR=862) Urine Methadone Screen (SOG8YV=249) Ur Propoxyphene Screen (ECCFWV=570) Ur Barbiturates Screen (DZDCLP=010) Ur Tricyclics Screen (RXZZGL=712) Ur Phencyclidine Scrn (CUTOFF=25) Ur Amphetamine Screen (JVVNXV=612) U Methamphetamines Scrn (DHDJWC=807) U Benzodiazepines Scrn (BKTETG=629) U Cocaine Metab Screen (WPAFSP=056) U Marijuana (THC) Screen (CUTOFF=50) Ethyl Alcohol (0.00) gm% Ketones (0.0-0.3) mM Med Orders - Current: Current Medications Chlordiazepoxide HCl (Librium) 50 mg PO Q6H REPLACED BY [facility] Last Admin: 07/19/19 08:44 Dose: 50 mg Folic Acid (Folic Acid) 1 mg PO DAILY REPLACED BY [facility] Last Admin: 07/19/19 08:10 Dose: 1 mg Potassium Chloride 10 meq/ (Premix) 100 mls @ 100 mls/hr IV Q1H REPLACED BY [facility] Stop: 07/19/19 12:29 Last Admin: 07/19/19 10:49 Dose: 100 mls/hr Potassium Chloride/Dextrose/Sod Cl (D5 Ns With 20 Meq Kcl) 1,000 mls @ 75 mls/ hr IV ASDIRECTED REPLACED BY [facility] Insulin Human Lispro (Humalog) 0 unit SUBCUT QIDACANDBED REPLACED BY [facility]; Protocol Lorazepam (Ativan) 0 mg PO Q1H PRN; Protocol PRN Reason: Withdrawal Symptoms Last Admin: 07/19/19 08:43 Dose: 1 mg Lorazepam (Ativan) 0 mg IVPUSH Q1H PRN; Protocol PRN Reason: Withdrawal Symptoms Last Admin: 07/19/19 08:10 Dose: 1 mg Magnesium Oxide (Magnesium Oxide) 400 mg PO BID REPLACED BY [facility] Last Admin: 07/19/19 08:44 Dose: 400 mg Ondansetron HCl (Zofran) 4 mg IV Q4H PRN PRN Reason: Nausea/Vomiting Last Admin: 07/19/19 00:44 Dose: 4 mg Thiamine HCl (Vitamin B-1) 100 mg IVPUSH Q8H REPLACED BY [facility] Last Admin: 07/19/19 06:17 Dose: 100 mg Discontinued Medications Dextrose/Sodium Chloride (Dextrose 5%-Normal Saline) 1,000 mls @ 999 mls/hr IV ASDIRECTED REPLACED BY [facility] Last Infusion: 07/18/19 20:45 Dose: Infused Dextrose/Sodium Chloride (Dextrose 5%-Normal Saline) 1,000 mls @ 999 mls/hr IV ASDIRECTED REPLACED BY [facility] Last Admin: 07/18/19 21:03 Dose: 999 mls/hr Potassium Chloride 10 meq/ (Premix) 100 mls @ 100 mls/hr IV ONETIME ONE Stop: 07/18/19 21:56 Last Admin: 07/18/19 21:04 Dose: 100 mls/hr Potassium Chloride/Dextrose/Sod Cl (D5 Ns With 20 Meq Kcl) 1,000 mls @ 150 mls/ hr IV ASDIRECTED REPLACED BY [facility] Last Admin: 07/19/19 06:54 Dose: 150 mls/hr Magnesium Sulfate 2 gm/ Premix 50 mls @ 25 mls/hr IV ONETIME ONE Stop: 07/19/19 10:20 Last Admin: 07/19/19 08:50 Dose: 25 mls/hr Lorazepam (Ativan) 1 mg IVPUSH ONETIME ONE Stop: 07/18/19 19:19 Last Admin: 07/18/19 19:49 Dose: 1 mg Metoclopramide HCl (Reglan) 10 mg IVPUSH ONETIME ONE Stop: 07/18/19 19:18 Last Admin: 07/18/19 19:45 Dose: 10 mg Thiamine HCl (Vitamin B-1) 100 mg IVPUSH ONETIME ONE Stop: 07/18/19 19:31 Last Admin: 07/18/19 19:45 Dose: 100 mg - Exam General: Alert, Oriented HEENT: Pupils Equal, Mucous Membr. Moist/[place] Neck: Supple Lungs: Clear to Auscultation, Normal Respiratory Effort Cardiovascular: Regular Rate, Regular Rhythm GI/Abdominal Exam: Normal Bowel Sounds, Soft, Non-Tender, No Organomegaly, No Distention, No Abnormal Bruit, No Mass Extremities: Normal Inspection, Normal Range of Motion, Non-Tender, No Pedal Edema, Normal Capillary Refill Skin: Warm, Dry, Intact Neurological: No New Focal Deficit Psy/Mental Status: Alert, Normal Affect, Normal Mood - Problem List Review Problem List Initiated/Reviewed/Updated: Yes - My Orders Last 24 Hours: My Active Orders 07/18/19 22:52 VTE/DVT Education [RC] PER UNIT ROUTINE Vital Signs [RC] Q4HR Ondansetron [Zofran] 4 mg IV Q4H PRN Sequential Compression Device [OM.PC] Per Unit Routine Resuscitation Status Routine 07/18/19 22:53 Consult to Case Management/Accounts Specialist [CONS] Routine Consult to Weather Observer [CONS] Routine 07/18/19 22:54 Antiembolic Devices [RC] PER UNIT ROUTINE 07/18/19 22:57 LORazepam [Ativan] See Protocol PO Q1H PRN 07/18/19 22:59 LORazepam [Ativan] See Protocol IVPUSH Q1H PRN 07/18/19 23:00 CIWAA Assessment [RC] Q1H Thiamine [Vitamin B-1] 100 mg IVPUSH Q8H 07/19/19 02:52 Activity as Tolerated [RC] .Routine 07/19/19 08:21 Blood Glucose Check, Bedside [RC] QIDACANDBED 07/19/19 08:30 Potassium Chloride [KCl 10 MEQ in Water 100 ML] 10 meq Premix Bag 1 bag IV Q1H 07/19/19 09:00 Folic Acid 1 mg PO DAILY Magnesium Oxide 400 mg PO BID chlordiazePOXIDE [Librium] 50 mg PO Q6H 07/19/19 11:00 Dextrose 5%-Normal Saline with KCl 20 mEq @ 75 mL/Hr (1000 mL) Dextrose 5%-0.9 % NaCl with KCl [D5 NS with 20 mEq KCl] 1,000 ml IV ASDIRECTED Insulin Lispro [HumaLOG] See Protocol SUBCUT QIDACANDBED 07/19/19 17:00 Potassium Chloride [Klor-Con M20] 40 meq PO ONETIME ONE 07/19/19 Lunch Regular Diet [DIET] 07/20/19 05:11 CBC WITH AUTO DIFF [HEME] AM COMPREHENSIVE METABOLIC PN,CMP [CHEM] AM MAGNESIUM [CHEM] AM 07/21/19 05:11 CBC WITH AUTO DIFF [HEME] AM COMPREHENSIVE METABOLIC PN,CMP [CHEM] AM MAGNESIUM [CHEM] AM 07/22/19 05:11 CBC WITH AUTO DIFF [HEME] AM COMPREHENSIVE METABOLIC PN,CMP [CHEM] AM MAGNESIUM [CHEM] AM - Plan Plan:: Assessment * 43-year-old with known alcoholism presents with nausea, vomiting, and alcohol withdrawal: blood alcohol level 0.45 g percent * Metabolic acidosis * anion gap (resolved) 25-->14, lactic acid 5.8-->3.8 * dehydration and malnutrition * dietary consulted * Alcoholic hepatitis: * Bilirubin 2.6-->2.1, AST 282-->195, ALT 257-->181, alkaline phosphatase 87--> 61; Alb 3.3 * Abdominal ultrasound: 1. Slightly prominent collecting system of the right kidney which is more prominent than on previous exam. Uncertain if this represents a so-called functional UPJ obstruction or represents other obstruction. If patient has symptoms to the right kidney intravenous urogram study could be obtained to further evaluate. 2. Slightly echogenic liver most likely representing mild fatty infiltration which is stable from previous exam. 3. Sludge within the gallbladder with no shadowing gallstones. No gallbladder wall thickening or biliary duct dilatation is seen. * Pancytopenia * Likely secondary to bone marrow suppression * WBC 2.8--> 2.0 (ANC 1.24), HB 11.9, platelets 149-->92 Plan * ICU * CIWA protocol with Ativan coverage * Add Librium 50 mg every 6 hours. Watch carefully for oversedation. * Titrate D5 NS with 20 meq KCL/liter based on oral intake. * Thiamine 100 mg IV every 8 hours * Folic acid 1 mg daily * Advance diet * CBC, CMP, Lactic acid, Mag in am * Discharge planing and social services manager * He will need inpatient treatment program for ETOH abuse * VTE prophylaxis with SCD * Full Code * LOS likely greater than 96 hours secondary to need for prolonged alcohol detox and placement in inpatient rehab
[2019-07-19] MEDS: Insulin Lispro 100 Units/ML 3 ML Vial SUBCUT SCH ×3 (11:09→21:08)
[2019-07-19] MEDS ORDERED: Potassium Chloride 20 MEQ Tab.ER PO ONE (17:00)
[2019-07-20] MEDS: chlordiazePOXIDE 25 MG Cap PO SCH ×2 (02:49→08:00)
[2019-07-20] MEDS: LORazepam 2 MG/ML SDV IVPUSH PRN (02:50)
[2019-07-20] MEDS: Dextrose 5%-0.9% NaCl with KCl 1,000 ML IV SCH (05:09)
[2019-07-20] MEDS: Thiamine 200 MG/2 ML MDV IVPUSH SCH (07:56)
[2019-07-20] MEDS: LORazepam 1 MG Tab PO PRN (08:00)
[2019-07-20] MEDS: Folic Acid 1 MG Tab PO SCH (08:00)
[2019-07-20] MEDS: Magnesium Oxide 400 MG Tab PO SCH (08:00)
[2019-07-20] MEDS ORDERED: Sodium Phosphate 15 mMole/5 ML SDV IV STA (08:32)
[2019-07-20] MEDS: SODIUM PHOSPHATE IV SCH ×3 (09:18→21:25)
[2019-07-20] MEDS: SODIUM CHLORIDE IV SCH ×3 (09:18→21:25)
--- NOTE | 2019-07-20 10:05 | PCM.PN ---
- General Info Date of Service: 07/20/19 Admission Dx/Problem (Free Text): ATTENDING PHYSICIAN: Goldie Redman M.D. Subjective Update: Patient is evaluated by me at bedside, no family members present. As per nursing patient was unable to sleep, has been requesting around the clock Ativan, he had a very hard BM this AM without any blood, is urinating ok, ambulating to and from restroom with minimal to no assistance. As per patient he has regular BM's at home at least BID, he denies any nausea, vomiting, abdominal pain, hallucinations or abnormal sensations; he does state he has minimal dizziness upon position change. - Review of Systems Systems Review Comment:: Patient is evaluated by me was no family at bedside. As per nursing staff patient did not sleep very well, had 1 very hard bowel movement this morning, is tolerating oral indigestion, ambulating to and from the restroom without assistance. As per patient he still feels very "jittery", he was unable to sleep at all last night, feels medications are not controlling his symptoms 100%, denies any nausea, vomiting, abdominal pain, headaches. She does have mild dizziness when he stands up. - Patient Data Vitals - Most Recent: Last Vital Signs Temp 36.8 C 07/20/19 08:00 Pulse 112 H 07/19/19 08:05 Resp 19 07/20/19 08:00 BP 133/90 07/20/19 08:00 Pulse Ox 100 07/20/19 08:00 Weight - Most Recent: 62.641 kg I&O - Last 24 Hours: Intake & Output 07/19/19 07/20/19 07/20/19 22:59 06:59 14:59 Intake Total 3658 1317 Output Total 1200 1225 Balance 2458 92 Lab Results Last 24 Hours: Laboratory Results - last 24 hr 07/19/19 07/19/19 07/19/19 Range/Units 11:08 16:55 20:39 WBC (4.23-9.07) K/mm3 RBC (4.63-6.08) M/mm3 Hgb (13.7-17.5) gm/dl Hct (40.1-51.0) % MCV (79.0-92.2) fl MCH (25.7-32.2) pg MCHC (32.2-35.5) g/dl RDW Std Deviation (35.1-43.9) fL Plt Count (163-337) K/mm3 MPV (9.4-12.3) fl Neut % (Auto) (34.0-67.9) % Lymph % (Auto) (21.8-53.1) % [place] % (Auto) (5.3-12.2) % Eos % (Auto) (0.8-7.0) Baso % (Auto) (0.1-1.2) % Neut # (Auto) (1.78-5.38) K/mm3 Lymph # (Auto) (1.32-3.57) K/mm3 [place] # (Auto) (0.30-0.82) K/mm3 Eos # (Auto) (0.04-0.54) K/mm3 Baso # (Auto) (0.01-0.08) K/mm3 Manual Slide Review Sodium (136-145) mEq/L Potassium (3.5-5.1) mEq/L Chloride (98-107) mEq/L Carbon Dioxide (21-32) mEq/L Anion Gap (5-15) BUN (7-18) mg/dL Creatinine (0.7-1.3) mg/dL Est Cr Clr Drug Dosing mL/min Estimated GFR (MDRD) (>60) mL/min BUN/Creatinine Ratio (14-18) Glucose (74-106) mg/dL POC Glucose 151 H 182 H 99 (70-105) mg/dL Calcium (8.5-10.1) mg/dL Phosphorus (2.6-4.7) mg/dL Magnesium (1.8-2.4) mg/dl Total Bilirubin (0.2-1.0) mg/dL AST (15-37) U/L ALT (16-63) U/L Alkaline Phosphatase (46-116) U/L Total Protein (6.4-8.2) g/dl Albumin (3.4-5.0) g/dl Globulin gm/dL Albumin/Globulin Ratio (1-2) 07/20/19 07/20/19 07/20/19 Range/Units 06:07 06:07 06:07 WBC 3.39 L (4.23-9.07) K/mm3 RBC 3.98 L (4.63-6.08) M/mm3 Hgb 12.8 L (13.7-17.5) gm/dl Hct 37.4 L (40.1-51.0) % MCV 94.0 H D (79.0-92.2) fl MCH 32.2 (25.7-32.2) pg MCHC 34.2 (32.2-35.5) g/dl RDW Std Deviation 42.9 (35.1-43.9) fL Plt Count 95 L (163-337) K/mm3 MPV 10.2 (9.4-12.3) fl Neut % (Auto) 73.8 H (34.0-67.9) % Lymph % (Auto) 11.8 L (21.8-53.1) % [place] % (Auto) 9.4 (5.3-12.2) % Eos % (Auto) 3.2 (0.8-7.0) Baso % (Auto) 1.8 H (0.1-1.2) % Neut # (Auto) 2.50 (1.78-5.38) K/mm3 Lymph # (Auto) 0.40 L (1.32-3.57) K/mm3 [place] # (Auto) 0.32 (0.30-0.82) K/mm3 Eos # (Auto) 0.11 (0.04-0.54) K/mm3 Baso # (Auto) 0.06 (0.01-0.08) K/mm3 Manual Slide Review Abnormal smear Sodium 135 L (136-145) mEq/L Potassium 4.2 (3.5-5.1) mEq/L Chloride 100 (98-107) mEq/L Carbon Dioxide 28 (21-32) mEq/L Anion Gap 11.2 (5-15) BUN 9 (7-18) mg/dL Creatinine 0.8 (0.7-1.3) mg/dL Est Cr Clr Drug Dosing 107.66 mL/min Estimated GFR (MDRD) > 60 (>60) mL/min BUN/Creatinine Ratio 11.3 L (14-18) Glucose 159 H (74-106) mg/dL POC Glucose (70-105) mg/dL Calcium 9.2 (8.5-10.1) mg/dL Phosphorus 1.3 L (2.6-4.7) mg/dL Magnesium 2.0 (1.8-2.4) mg/dl Total Bilirubin 3.1 H (0.2-1.0) mg/dL AST 302 H (15-37) U/L ALT 216 H (16-63) U/L Alkaline Phosphatase 120 H (46-116) U/L Total Protein 6.4 (6.4-8.2) g/dl Albumin 3.7 (3.4-5.0) g/dl Globulin 2.7 gm/dL Albumin/Globulin Ratio 1.4 (1-2) - Exam Physical Findings Comments:: General: 43-year-old sarcopenia neck male, laying on bed in no acute distress Head: normocephalic and atraumatic, face is symmetric without drooping. Eyes: PERRLA, EOMI. White sclera with mild conjunctival injection. No nystagmus is appreciated. ENT: nares are patent without nasal discharge. Dentition is very poor with multiple dental caries and halitosis. Neck: midline trachea midline, no masses or carotid bruit, full range of motion Cardiovascular: heart is rhythmic and synchronic with pulse. No rubs, murmurs or gallops. Pulses are symmetrical in upper and lower extremities BL both proximal and distal. Respiratory: symmetrical expansion, No dyspnea or tachypnea. Clear to auscultation BL. No rales, wheezing of rhonchi. GI: abdomen soft, non-tender, non-distended. No guarding or rebound. No organomegaly or masses are palpated. BS in all quadrants. Skin: There is a small excoriation on the right femoral prominence of approximately 1 cm with surrounding erythema, not warm to touch, no drainage or foul smell. Neuro: awake and alert. Obvious upper extremity tremor that stops on intention movement. - Problem List & Annotations (1) Acquired pancytopenia SNOMED Code(s): 0751948 Code(s): D61.818 - OTHER PANCYTOPENIA Status: Acute Current Visit: Yes (2) Depression determined by examination SNOMED Code(s): 555591274 Code(s): F32.9 - MAJOR DEPRESSIVE DISORDER, SINGLE EPISODE, UNSPECIFIED Status: Acute Current Visit: Yes (3) Electrolyte disturbance SNOMED Code(s): 445179171 Code(s): E87.8 - OTH DISORDERS OF ELECTROLYTE AND FLUID BALANCE, NEC Status : Acute Current Visit: Yes (4) Alcohol dependence with withdrawal SNOMED Code(s): 09481063, 975299650 Code(s): F10.239 - ALCOHOL DEPENDENCE WITH WITHDRAWAL, UNSPECIFIED Status: Acute Current Visit: Yes - Problem List Review Problem List Initiated/Reviewed/Updated: Yes - Plan Plan:: Assessment * 43-year-old with known alcoholism presents with nausea, vomiting, and alcohol withdrawal: blood alcohol level 0.45 g percent * Metabolic acidosis * anion gap (resolved) 25-->14, lactic acid 5.8-->3.8 * dehydration and malnutrition * dietary consulted * Alcoholic hepatitis: * Bilirubin 2.6-->2.1, AST 282-->195, ALT 257-->181, alkaline phosphatase 87--> 61; Alb 3.3 * Abdominal ultrasound: 1. Slightly prominent collecting system of the right kidney which is more prominent than on previous exam. Uncertain if this represents a so-called functional UPJ obstruction or represents other obstruction. If patient has symptoms to the right kidney intravenous urogram study could be obtained to further evaluate. 2. Slightly echogenic liver most likely representing mild fatty infiltration which is stable from previous exam. 3. Sludge within the gallbladder with no shadowing gallstones. No gallbladder wall thickening or biliary duct dilatation is seen. * Pancytopenia * Likely secondary to bone marrow suppression * WBC 2.8--> 2.0 (ANC 1.24), HB 11.9, platelets 149-->92 PLAN Cardiovascular: Respiratory: Renal and electrolytes: Endocrine and metabolism: Neurologic: Rehabilitation: Code Status: Disposition:
[2019-07-20] MEDS: Thiamine 1,000 MG, Magnesium Sulfate 4 GM, Folic Acid 1 MG in Dextrose 5%-0.9% NaCl 1,0... IV SCH (10:16)
[2019-07-20] MEDS: LORazepam 2 MG/ML SDV IVPUSH SCH ×2 (14:00→19:59)
[2019-07-21] MEDS: LORazepam 2 MG/ML SDV IVPUSH SCH ×2 (03:29→08:20)
[2019-07-21] MEDS: SODIUM PHOSPHATE IV SCH (03:33)
[2019-07-21] MEDS: SODIUM CHLORIDE IV SCH (03:33)
[2019-07-21] MEDS: Thiamine 1,000 MG, Magnesium Sulfate 4 GM, Folic Acid 1 MG in Dextrose 5%-0.9% NaCl 1,0... IV SCH (11:20)
[2019-07-21] MEDS ORDERED: Topiramate 25 MG Tab PO STA (17:24)
[2019-07-21] MEDS ORDERED: QUEtiapine 25 MG Tab PO STA (17:27)
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
== END 2019-07-21 18:05 | disposition other institution (70) | DRG 897 ==
LOC: JD.ED 18:57 → JD.ICU 21:57
PROVIDERS: ADMIT Family Medicine; ATTEND Family Medicine
PROC: HZ2ZZZZ Detoxification Services for Substance Abuse Treatment (ICD-10-PCS; principal; 2019-07-18)
DX: F10.239 Alcohol dependence with withdrawal, unspecified (principal); E87.2 Acidosis; E46 Unspecified protein-calorie malnutrition; E87.1 Hypo-osmolality and hyponatremia; D61.818 Other pancytopenia; R64 Cachexia; Z68.1 Body mass index [BMI] 19.9 or less, adult; K21.9 Gastro-esophageal reflux disease without esophagitis; E86.9 Volume depletion, unspecified; E86.0 Dehydration; K70.10 Alcoholic hepatitis without ascites; F32.9 Major depressive disorder, single episode, unspecified; F17.220 Nicotine dependence, chewing tobacco, uncomplicated; F42.9 Obsessive-compulsive disorder, unspecified; F43.10 Post-traumatic stress disorder, unspecified; Y90.0 Blood alcohol level of less than 20 mg/100 ml; Z91.013 Allergy to seafood; Z88.0 Allergy status to penicillin; Z79.899 Other long term (current) drug therapy; Z98.890 Other specified postprocedural states; Z88.8 Allergy status to other drugs, medicaments and biological substances
CPT/HCPCS: 36415; 71045; 71045-26; 76700; 76700-26; 80053; 80306; 81001; 82009; 82962; 83605; 83690; 83735; 83930; 84100; 85025; 85610; 85730; 86140; 93005; 93010; 96361; 96365; 96375; 97110-GO; 97110-GP; 97116-GP; 97162-GP; 97167-GO; 97530-GO; 97535-GO; 99285; 99285-25; A9270-GY; G0480; J2060; J2405; J2765; J3411; J3475; J3480; J7030; J7042

== ENCOUNTER 2019-07-22 13:05 | Emergency (ER) | payer SELFPAY ==
[2019-07-22] MEDS ORDERED: LORazepam 1 MG Tab PO ONE (14:10)
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
== END 2019-07-22 14:44 | disposition home or self-care (01) ==
LOC: JD.ED 13:05
DX: F41.0 Panic disorder [episodic paroxysmal anxiety] (principal); F17.200 Nicotine dependence, unspecified, uncomplicated; Z88.0 Allergy status to penicillin; Z91.013 Allergy to seafood; Z91.030 Bee allergy status
CPT/HCPCS: 93005; 99284; A9270

== ENCOUNTER 2019-10-13 08:03 | Emergency (ER) | payer MEDICAID ==
[2019-10-13] MEDS ORDERED: Ondansetron 4 MG/2 ML SDV IVPUSH ONE (10:22)
[2019-10-13] MEDS ORDERED: Sodium Chloride 0.9% 10 ML Syringe FLUSH PRN (10:23)
[2019-10-13] MEDS ORDERED: Sodium Chloride 0.9% 1,000 ML IV ONE ×2 (10:23→11:05)
[2019-10-13] MEDS ORDERED: LORazepam 2 MG/ML SDV IVPUSH ONE ×2 (10:23→13:44)
[2019-10-13] MEDS ORDERED: Ondansetron 4 MG/2 ML SDV ONE (10:24)
[2019-10-13] MEDS ORDERED: LORazepam 2 MG/ML SDV ONE (10:35)
[2019-10-13] MEDS ORDERED: Pantoprazole 40 MG Vial IVPUSH ONE (11:10)
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
[2019-10-13] MEDS ORDERED: Alum Hydrox/Mag Hydrox/Simeth 30 ML, Lidocaine 2% 15 ML PO ONE ×2 (13:04)
[2019-10-13] MEDS ORDERED: Metoclopramide 10 MG/2 ML SDV IVPUSH ONE (13:44)
== END 2019-10-13 14:30 | disposition home or self-care (01) ==
LOC: JD.ED 08:03
DX: F10.10 Alcohol abuse, uncomplicated (principal); Y90.0 Blood alcohol level of less than 20 mg/100 ml; Z79.899 Other long term (current) drug therapy; Z91.030 Bee allergy status; Z91.013 Allergy to seafood; Z88.0 Allergy status to penicillin; Z88.1 Allergy status to other antibiotic agents
CPT/HCPCS: 36415; 80053; 80320; 83735; 85025; 85610; 96361; 96374; 96375; 96376; 99284; A9270; C9113; J2060; J2405; J2765; J7030; G0480

== ENCOUNTER 2019-12-14 05:32 | Inpatient (IN) | payer MEDICAID ==
[2019-12-14] MEDS ORDERED: Metoclopramide 10 MG/2 ML SDV IVPUSH ONE (05:46)
[2019-12-14] MEDS ORDERED: LORazepam 2 MG/ML SDV IVPUSH ONE (05:46)
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
[2019-12-14] MEDS ORDERED: Thiamine 200 MG/2 ML MDV IVPUSH ONE (05:58)
[2019-12-14] MEDS ORDERED: Dextrose 5%-Lactated Ringers 1,000 ML IV SCH ×2 (06:00→07:30)
[2019-12-14] MEDS: Potassium Chloride 10 MEQ in Premix Bag 1 BAG IV SCH ×10 (08:28→21:04)
[2019-12-14] MEDS ORDERED: Sodium Chloride 0.9% 1,000 ML IV ONE (08:40)
--- NOTE | 2019-12-14 08:55 | CR ---
Chest: Portable view of the chest was obtained. Comparison: Prior chest x-ray of 07/18/19. Nodular density believed to represent overlapping vessels within the right mid hilar region. Lungs show no acute parenchymal change. Heart size and mediastinum are within normal limits. No discrete bony abnormality is appreciated. Impression: 1. Nothing acute is appreciated on portable chest x-ray. Diagnostic code #1 This report was dictated in [place] Standard Time
[2019-12-14] MEDS ORDERED: Folic Acid 50 MG/10 ML MDV IV ONE (09:15)
[2019-12-14] MEDS: Thiamine 200 MG/2 ML MDV IVPUSH SCH ×2 (10:49→17:26)
[2019-12-14] MEDS: Dextrose 5%-0.9% NaCl with KCl 1,000 ML IV SCH ×4 (10:51→21:58)
[2019-12-14] MEDS: LORazepam 2 MG/ML SDV IVPUSH PRN ×8 (10:54→23:14)
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
[2019-12-14] MEDS ORDERED: Dextrose 5%-0.9% NaCl with KCl 1,000 ML IV SCH (18:45)
[2019-12-14] MEDS: chlordiazePOXIDE 25 MG Cap PO SCH (20:38)
[2019-12-15] MEDS: LORazepam 2 MG/ML SDV IVPUSH PRN ×16 (00:27→23:44)
[2019-12-15] MEDS: hydrOXYzine HCl 25 MG/ML SDV IM PRN (00:28)
[2019-12-15] MEDS: Thiamine 200 MG/2 ML MDV IVPUSH SCH ×3 (00:37→17:41)
[2019-12-15] MEDS: Dextrose 5%-0.9% NaCl with KCl 1,000 ML IV SCH (01:52)
[2019-12-15] MEDS: chlordiazePOXIDE 25 MG Cap PO SCH ×5 (02:23→20:10)
[2019-12-15] MEDS: Ondansetron 4 MG/2 ML SDV IV PRN (05:25)
[2019-12-15] MEDS ORDERED: Haloperidol Lactate 5 MG/ML SDV IVPUSH ONE (06:09)
[2019-12-15] MEDS ORDERED: Haloperidol Lactate 5 MG/ML SDV ONE (06:12)
[2019-12-15] MEDS ORDERED: Magnesium Sulfate/Water 4 GM in Premix Bag 1 BAG IV ONE (06:33)
[2019-12-15] MEDS: Folic Acid 1 MG Tab PO SCH (08:36)
[2019-12-15] MEDS: Potassium Chloride 10 MEQ in Premix Bag 1 BAG IV SCH ×4 (08:50→12:38)
[2019-12-15] MEDS ORDERED: Enoxaparin 40 MG/0.4 ML Syringe SUBCUT SCH (09:00)
--- NOTE | 2019-12-15 14:00 | PCM.PN ---
- General Info Date of Service: 12/15/19 Admission Dx/Problem (Free Text): Admission Diagnosis/Problem Admission Diagnosis/Problem Alcohol dependence Subjective Update: Patient had a difficult night overnight. He became more and more confused and required moderate amounts of Ativan and ultimately 5 mg of Haldol. This morning patient has been resting, but still is confused. He is incontinent of urine and removing his briefs. He has become more unsteady and is pulling off his ECG leads, trying to pull out his lines, and getting up out of bed unsteady. Functional Status: Reports: Pain Controlled - Review of Systems General: Reports: Fatigue HEENT: Reports: No Symptoms Pulmonary: Reports: No Symptoms Cardiovascular: Reports: No Symptoms Gastrointestinal: Reports: No Symptoms Neurological: Reports: Confusion Psychiatric: Reports: Confusion - Patient Data Vitals - Most Recent: Last Vital Signs Temp 98.5 F 12/15/19 12:00 Pulse 112 H 12/14/19 05:37 Resp 16 12/15/19 12:00 BP 112/87 12/15/19 12:00 Pulse Ox 100 12/15/19 12:00 Weight - Most Recent: 142 lb 14.388 oz I&O - Last 24 Hours: Intake & Output 12/14/19 12/15/19 12/15/19 22:59 06:59 14:59 Intake Total 1338 1700 Output Total 845 2400 Balance 493 -700 Lab Results Last 24 Hours: Laboratory Results - last 24 hr 12/14/19 12/14/19 12/14/19 Range/Units 15:00 15:00 15:00 WBC (4.23-9.07) K/mm3 RBC (4.63-6.08) M/mm3 Hgb (13.7-17.5) gm/dl Hct (40.1-51.0) % MCV (79.0-92.2) fl MCH (25.7-32.2) pg MCHC (32.2-35.5) g/dl RDW Std Deviation (35.1-43.9) fL Plt Count (163-337) K/mm3 MPV (9.4-12.3) fl Neut % (Auto) (34.0-67.9) % Lymph % (Auto) (21.8-53.1) % [place] % (Auto) (5.3-12.2) % Eos % (Auto) (0.8-7.0) Baso % (Auto) (0.1-1.2) % Neut # (Auto) (1.78-5.38) K/mm3 Lymph # (Auto) (1.32-3.57) K/mm3 [place] # (Auto) (0.30-0.82) K/mm3 Eos # (Auto) (0.04-0.54) K/mm3 Baso # (Auto) (0.01-0.08) K/mm3 Sodium 136 (136-145) mEq/L Potassium 3.0 L (3.5-5.1) mEq/L Chloride 97 L D (98-107) mEq/L Carbon Dioxide 31 D (21-32) mEq/L Anion Gap 11.0 (5-15) BUN 17 (7-18) mg/dL Creatinine 0.8 (0.7-1.3) mg/dL Est Cr Clr Drug Dosing 112.29 mL/min Estimated GFR (MDRD) > 60 (>60) mL/min BUN/Creatinine Ratio 21.3 H (14-18) Glucose 187 H (74-106) mg/dL POC Glucose (70-105) mg/dL Lactic Acid 1.6 (0.4-2.0) mmol/L Calcium 7.5 L (8.5-10.1) mg/dL Magnesium 1.8 (1.8-2.4) mg/dl Total Bilirubin 4.0 H (0.2-1.0) mg/dL AST 80 H (15-37) U/L ALT 76 H (16-63) U/L Alkaline Phosphatase 55 (46-116) U/L Total Protein 5.5 L (6.4-8.2) g/dl Albumin 3.1 L (3.4-5.0) g/dl Globulin 2.4 gm/dL Albumin/Globulin Ratio 1.3 (1-2) 12/14/19 12/15/19 12/15/19 Range/Units 18:29 04:33 04:33 WBC 5.40 (4.23-9.07) K/mm3 RBC 4.10 L (4.63-6.08) M/mm3 Hgb 12.3 L D (13.7-17.5) gm/dl Hct 36.4 L (40.1-51.0) % MCV 88.8 D (79.0-92.2) fl MCH 30.0 (25.7-32.2) pg MCHC 33.8 (32.2-35.5) g/dl RDW Std Deviation 39.1 (35.1-43.9) fL Plt Count 103 L (163-337) K/mm3 MPV 10.7 (9.4-12.3) fl Neut % (Auto) 71.5 H (34.0-67.9) % Lymph % (Auto) 20.7 L (21.8-53.1) % [place] % (Auto) 6.3 (5.3-12.2) % Eos % (Auto) 0.9 (0.8-7.0) Baso % (Auto) 0.4 (0.1-1.2) % Neut # (Auto) 3.86 (1.78-5.38) K/mm3 Lymph # (Auto) 1.12 L (1.32-3.57) K/mm3 [place] # (Auto) 0.34 (0.30-0.82) K/mm3 Eos # (Auto) 0.05 (0.04-0.54) K/mm3 Baso # (Auto) 0.02 (0.01-0.08) K/mm3 Sodium 136 (136-145) mEq/L Potassium 3.1 L (3.5-5.1) mEq/L Chloride 97 L (98-107) mEq/L Carbon Dioxide 31 (21-32) mEq/L Anion Gap 11.1 (5-15) BUN 10 (7-18) mg/dL Creatinine 0.7 (0.7-1.3) mg/dL Est Cr Clr Drug Dosing 126.04 mL/min Estimated GFR (MDRD) > 60 (>60) mL/min BUN/Creatinine Ratio 14.3 (14-18) Glucose 115 H (74-106) mg/dL POC Glucose 146 H (70-105) mg/dL Lactic Acid (0.4-2.0) mmol/L Calcium 8.3 L (8.5-10.1) mg/dL Magnesium 1.6 L (1.8-2.4) mg/dl Total Bilirubin 5.3 H (0.2-1.0) mg/dL AST 104 H (15-37) U/L ALT 77 H (16-63) U/L Alkaline Phosphatase 60 (46-116) U/L Total Protein 6.4 (6.4-8.2) g/dl Albumin 3.7 (3.4-5.0) g/dl Globulin 2.7 gm/dL Albumin/Globulin Ratio 1.4 (1-2) Med Orders - Current: Current Medications Chlordiazepoxide HCl (Librium) 50 mg PO Q4H [facility] Last Admin: 12/15/19 13:40 Dose: 50 mg Enoxaparin Sodium (Lovenox) 40 mg SUBCUT DAILY [facility] Last Admin: 12/15/19 08:46 Dose: 40 mg Folic Acid (Folic Acid) 1 mg PO DAILY [facility] Last Admin: 12/15/19 08:36 Dose: 1 mg Hydroxyzine HCl (Vistaril) 50 mg IM Q6H PRN PRN Reason: Nausea/Vomiting Last Admin: 12/15/19 00:28 Dose: 50 mg Potassium Chloride/Dextrose/Sod Cl (D5 Ns With 20 Meq Kcl) 1,000 mls @ 100 mls/ hr IV ASDIRECTED [facility] Last Admin: 12/15/19 01:52 Dose: 100 mls/hr Lorazepam (Ativan) 0 mg IVPUSH Q1H PRN; Protocol PRN Reason: Withdrawal Symptoms Last Admin: 12/15/19 13:27 Dose: 2 mg Ondansetron HCl (Zofran) 4 mg IV Q4H PRN PRN Reason: Nausea/Vomiting Last Admin: 12/15/19 05:25 Dose: 4 mg Thiamine HCl (Vitamin B-1) 100 mg IVPUSH Q8H [facility] Last Admin: 12/15/19 08:45 Dose: 100 mg Discontinued Medications Chlordiazepoxide HCl (Librium) 50 mg PO Q6H [facility] Last Admin: 12/15/19 08:36 Dose: 50 mg Folic Acid (Folic Acid) 1 mg IV ONETIME ONE Stop: 12/14/19 09:16 Last Admin: 12/14/19 10:31 Dose: 1 mg Haloperidol Lactate (Haldol) 5 mg IVPUSH ONETIME ONE Stop: 12/15/19 06:10 Last Admin: 12/15/19 06:14 Dose: 5 mg Haloperidol Lactate (Haldol) Confirm Administered Dose 5 mg .ROUTE .STK-MED ONE Stop: 12/15/19 06:13 Last Admin: 12/15/19 08:42 Dose: 5 mg Dextrose/Lactated Ringer's (Dextrose 5%-Lactated Ringers) 1,000 mls @ 999 mls/ hr IV ASDIRECTED [facility] Last Admin: 12/14/19 06:02 Dose: 999 mls/hr Dextrose/Lactated Ringer's (Dextrose 5%-Lactated Ringers) 1,000 mls @ 999 mls/ hr IV ASDIRECTED [facility] Last Admin: 12/14/19 07:44 Dose: 999 mls/hr Potassium Chloride 10 meq/ (Premix) 100 mls @ 100 mls/hr IV Q1H [facility] Stop: 12/14/19 13:14 Last Admin: 12/14/19 13:00 Dose: 100 mls/hr Sodium Chloride (Normal Saline) 1,000 mls @ 999 mls/hr IV ONETIME ONE Stop: 12/14/19 09:40 Last Admin: 12/14/19 08:50 Dose: 999 mls/hr Potassium Chloride/Dextrose/Sod Cl (D5 Ns With 20 Meq Kcl) 1,000 mls @ 200 mls/ hr IV ASDIRECTED [facility] Last Infusion: 12/14/19 15:48 Dose: 100 mls/hr Potassium Chloride 10 meq/ (Premix) 100 mls @ 100 mls/hr IV Q1H [facility] Stop: 12/14/19 21:14 Last Admin: 12/14/19 21:04 Dose: 100 mls/hr Potassium Chloride/Dextrose/Sod Cl (D5 Ns With 20 Meq Kcl) 1,000 mls @ 100 mls/ hr IV ASDIRECTED [facility] Magnesium Sulfate 4 gm/ Premix 50 mls @ 12.5 mls/hr IV ONETIME ONE Stop: 12/15/19 10:32 Last Admin: 12/15/19 08:51 Dose: 12.5 mls/hr Potassium Chloride 10 meq/ (Premix) 100 mls @ 100 mls/hr IV Q1H [facility] Stop: 12/15/19 10:44 Last Admin: 12/15/19 12:38 Dose: 100 mls/hr Lorazepam (Ativan) 1 mg IVPUSH ONETIME ONE Stop: 12/14/19 05:47 Last Admin: 12/14/19 06:03 Dose: 1 mg Metoclopramide HCl (Reglan) 7.5 mg IVPUSH ONETIME ONE Stop: 12/14/19 05:47 Last Admin: 12/14/19 06:03 Dose: 7.5 mg Thiamine HCl (Vitamin B-1) 100 mg IVPUSH ONETIME ONE Stop: 12/14/19 05:59 Last Admin: 12/14/19 07:44 Dose: 100 mg - Exam General: Sedated HEENT: Pupils Equal Neck: Supple Lungs: Clear to Auscultation, Normal Respiratory Effort Cardiovascular: Regular Rate, Regular Rhythm GI/Abdominal Exam: Normal Bowel Sounds, Soft, No Distention Extremities: Normal Inspection, Normal Range of Motion, No Pedal Edema Psy/Mental Status: Alert, Normal Affect, Normal Mood Sepsis Event Note - Evaluation Sepsis Screening Result: No Definite Risk - Focused Exam Vital Signs: Vital Signs Temp Resp BP Pulse Ox 12/15/19 12:00 98.5 F 16 112/87 100 12/15/19 08:00 97.7 F 16 99/76 97 12/15/19 04:00 97.7 F 18 125/90 100 Date Exam was Performed: 12/15/19 Time Exam was Performed: 15:34 - Problem List Review Problem List Initiated/Reviewed/Updated: Yes - My Orders Last 24 Hours: My Active Orders 12/14/19 19:00 Dextrose 5%-0.9% NaCl with KCl [D5 NS with 20 mEq KCl] 1,000 ml IV ASDIRECTED 12/14/19 Dinner Clear Liquid Diet [DIET] 12/15/19 08:00 Abdomen Pelvis w Cont [CT] Routine 12/15/19 09:00 Enoxaparin [Lovenox] 40 mg SUBCUT DAILY Folic Acid 1 mg PO DAILY 12/15/19 12:58 Urinary Catheter Assessment [RC] ASDIRECTED 12/15/19 13:00 Insert Jerome Catheter [Insert Urinary Catheter] [OM.PC] Q24H chlordiazePOXIDE [Librium] 50 mg PO Q4H 12/16/19 05:11 CBC WITH AUTO DIFF [HEME] AM CMP [COMPREHENSIVE METABOLIC PN,CMP] [CHEM] AM MAGNESIUM [CHEM] AM 12/17/19 05:11 CBC WITH AUTO DIFF [HEME] AM CMP [COMPREHENSIVE METABOLIC PN,CMP] [CHEM] AM MAGNESIUM [CHEM] AM 12/18/19 05:11 CBC WITH AUTO DIFF [HEME] AM CMP [COMPREHENSIVE METABOLIC PN,CMP] [CHEM] AM MAGNESIUM [CHEM] AM 12/19/19 05:11 CBC WITH AUTO DIFF [HEME] AM CMP [COMPREHENSIVE METABOLIC PN,CMP] [CHEM] AM MAGNESIUM [CHEM] AM - Plan Plan:: Assessment * Alcohol abuse disorder with active withdrawal -deteriorated * 750 mL/day of whiskey for the last 7 months * Previous hospitalization and rehabilitation for alcohol * Blood alcohol level 0.20 g% on admission * More confused and requiring higher level of nursing care. * Lactic acidosis -resolved, hyponatremia -resolved, alcoholic ketosis -resolved , * Initial lactic acid 9.1 with repeat of 4.8, sodium 136, anion gap 11.1, * Hypokalemia * Potassium 3.1 * Abdominal pain with history of fatty liver with elevated liver enzymes, bilirubin, with normal albumin and INR * Ultrasound last hospitalization in July demonstrated fatty liver * Bilirubin 4.0, GGT 75, AST 126, ALT 114 * Normal lipase of 278 * Right flank pain with microscopic hematuria * UA demonstrates RBC 5-10 * Last hospitalization patient had a slightly prominent collecting system of the right kidney which is more prominent than previous ultrasound. Uncertain if this represents a so-called functional UPJ obstruction or represents other obstruction. If patient has symptoms to the right kidney intravenous urogram study could be obtained to further evaluate. Plan * Admit to ICU for active alcohol withdrawal * Has become more confused and unstable requiring one-on-one care. * CIWAA protocol with Ativan * Librium 50 mg p.o. every 4 hours; decrease to q6 hours this PM * Thiamine 100 mg IV every 8 hours * Folic acid 1 mg daily * Advance diet as tolerated * Replete potassium * DC IV fluids * Zofran 4 mg IV every 4 hours as needed nausea * Case management and social service director consult * CT intravenous urogram for possible UPJ obstruction and microscopic hematuria held this morning secondary to confusion, will try again in the morning * VTE prophylaxis: Not needed, VTE score 1 * CODE STATUS: Full code * Anticipated length of stay 4 days
[2019-12-15] MEDS: Dextrose 5%-Lactated Ringers 1,000 ML IV SCH (20:52)
[2019-12-16] MEDS: hydrOXYzine HCl 25 MG/ML SDV IM PRN (00:19)
[2019-12-16] MEDS: Thiamine 200 MG/2 ML MDV IVPUSH SCH ×3 (00:20→16:40)
[2019-12-16] MEDS: LORazepam 2 MG/ML SDV IVPUSH PRN ×9 (01:22→18:54)
[2019-12-16] MEDS: chlordiazePOXIDE 25 MG Cap PO SCH ×4 (02:48→20:15)
[2019-12-16] MEDS ORDERED: Potassium Chloride 20 MEQ Tab.ER PO ONE (08:20)
[2019-12-16] MEDS: Folic Acid 1 MG Tab PO SCH (09:00)
--- NOTE | 2019-12-16 09:55 | PCM.PN ---
- General Info Date of Service: 12/16/19 Admission Dx/Problem (Free Text): Admission Diagnosis/Problem Admission Diagnosis/Problem Alcohol dependence Subjective Update: Continuing to require PRN Ativan for withdrawal symptoms. Urinary catheter was placed 2/2 confusion and concern for harm to patient due to ataxia. Functional Status: Reports: Other (confused. ) - Review of Systems General: Reports: Weakness Neurological: Reports: Confusion (Oriented to person and place but not day.) Psychiatric: Reports: Confusion - Patient Data Vitals - Most Recent: Last Vital Signs Temp 98.9 F 12/16/19 08:00 Pulse 81 12/15/19 06:00 Resp 13 12/16/19 08:00 BP 114/79 12/16/19 08:00 Pulse Ox 98 12/16/19 08:00 Weight - Most Recent: 140 lb 9.6 oz I&O - Last 24 Hours: Intake & Output 12/15/19 12/16/19 12/16/19 22:59 06:59 14:59 Intake Total 1050 919 Output Total 1225 625 40 Balance -175 294 -40 Lab Results Last 24 Hours: Laboratory Results - last 24 hr 12/16/19 12/16/19 Range/Units 03:51 03:51 WBC 4.83 (4.23-9.07) K/mm3 RBC 4.55 L (4.63-6.08) M/mm3 Hgb 13.9 D (13.7-17.5) gm/dl Hct 41.6 (40.1-51.0) % MCV 91.4 (79.0-92.2) fl MCH 30.5 (25.7-32.2) pg MCHC 33.4 (32.2-35.5) g/dl RDW Std Deviation 40.9 (35.1-43.9) fL Plt Count 94 L (163-337) K/mm3 MPV 10.7 (9.4-12.3) fl Neut % (Auto) 63.5 (34.0-67.9) % Lymph % (Auto) 24.8 (21.8-53.1) % [place] % (Auto) 7.2 (5.3-12.2) % Eos % (Auto) 4.1 (0.8-7.0) Baso % (Auto) 0.4 (0.1-1.2) % Neut # (Auto) 3.06 (1.78-5.38) K/mm3 Lymph # (Auto) 1.20 L (1.32-3.57) K/mm3 [place] # (Auto) 0.35 (0.30-0.82) K/mm3 Eos # (Auto) 0.20 (0.04-0.54) K/mm3 Baso # (Auto) 0.02 (0.01-0.08) K/mm3 Manual Slide Review Abnormal smear Sodium 137 (136-145) mEq/L Potassium 3.3 L (3.5-5.1) mEq/L Chloride 100 (98-107) mEq/L Carbon Dioxide 27 (21-32) mEq/L Anion Gap 13.3 (5-15) BUN 10 (7-18) mg/dL Creatinine 0.7 (0.7-1.3) mg/dL Est Cr Clr Drug Dosing 124.01 mL/min Estimated GFR (MDRD) > 60 (>60) mL/min BUN/Creatinine Ratio 14.3 (14-18) Glucose 112 H (74-106) mg/dL Calcium 8.9 (8.5-10.1) mg/dL Magnesium 2.0 (1.8-2.4) mg/dl Total Bilirubin 3.6 H (0.2-1.0) mg/dL AST 118 H (15-37) U/L ALT 87 H (16-63) U/L Alkaline Phosphatase 66 (46-116) U/L Total Protein 6.9 (6.4-8.2) g/dl Albumin 3.6 (3.4-5.0) g/dl Globulin 3.3 gm/dL Albumin/Globulin Ratio 1.1 (1-2) Med Orders - Current: Current Medications Chlordiazepoxide HCl (Librium) 50 mg PO Q6H [facility] Last Admin: 12/16/19 09:00 Dose: 50 mg Folic Acid (Folic Acid) 1 mg PO DAILY [facility] Last Admin: 12/16/19 09:00 Dose: 1 mg Hydroxyzine HCl (Vistaril) 50 mg IM Q6H PRN PRN Reason: Nausea/Vomiting Last Admin: 12/16/19 00:19 Dose: 50 mg Dextrose/Lactated Ringer's (Dextrose 5%-Lactated Ringers) 1,000 mls @ 75 mls/ hr IV ASDIRECTED [facility] Last Admin: 12/15/19 20:52 Dose: 75 mls/hr Lorazepam (Ativan) 0 mg IVPUSH Q1H PRN; Protocol PRN Reason: Withdrawal Symptoms Last Admin: 12/16/19 06:16 Dose: 2 mg Ondansetron HCl (Zofran) 4 mg IV Q4H PRN PRN Reason: Nausea/Vomiting Last Admin: 12/15/19 05:25 Dose: 4 mg Thiamine HCl (Vitamin B-1) 100 mg IVPUSH Q8H [facility] Last Admin: 12/16/19 09:03 Dose: 100 mg Discontinued Medications Chlordiazepoxide HCl (Librium) 50 mg PO Q6H [facility] Last Admin: 12/15/19 08:36 Dose: 50 mg Chlordiazepoxide HCl (Librium) 50 mg PO Q4H [facility] Last Admin: 12/15/19 20:10 Dose: 50 mg Enoxaparin Sodium (Lovenox) 40 mg SUBCUT DAILY [facility] Last Admin: 12/15/19 08:46 Dose: 40 mg Folic Acid (Folic Acid) 1 mg IV ONETIME ONE Stop: 12/14/19 09:16 Last Admin: 12/14/19 10:31 Dose: 1 mg Haloperidol Lactate (Haldol) 5 mg IVPUSH ONETIME ONE Stop: 12/15/19 06:10 Last Admin: 12/15/19 06:14 Dose: 5 mg Haloperidol Lactate (Haldol) Confirm Administered Dose 5 mg .ROUTE .STK-MED ONE Stop: 12/15/19 06:13 Last Admin: 12/15/19 08:42 Dose: 5 mg Dextrose/Lactated Ringer's (Dextrose 5%-Lactated Ringers) 1,000 mls @ 999 mls/ hr IV ASDIRECTED [facility] Last Admin: 12/14/19 06:02 Dose: 999 mls/hr Dextrose/Lactated Ringer's (Dextrose 5%-Lactated Ringers) 1,000 mls @ 999 mls/ hr IV ASDIRECTED [facility] Last Admin: 12/14/19 07:44 Dose: 999 mls/hr Potassium Chloride 10 meq/ (Premix) 100 mls @ 100 mls/hr IV Q1H [facility] Stop: 12/14/19 13:14 Last Admin: 12/14/19 13:00 Dose: 100 mls/hr Sodium Chloride (Normal Saline) 1,000 mls @ 999 mls/hr IV ONETIME ONE Stop: 12/14/19 09:40 Last Admin: 12/14/19 08:50 Dose: 999 mls/hr Potassium Chloride/Dextrose/Sod Cl (D5 Ns With 20 Meq Kcl) 1,000 mls @ 200 mls/ hr IV ASDIRECTED [facility] Last Infusion: 12/14/19 15:48 Dose: 100 mls/hr Potassium Chloride 10 meq/ (Premix) 100 mls @ 100 mls/hr IV Q1H [facility] Stop: 12/14/19 21:14 Last Admin: 12/14/19 21:04 Dose: 100 mls/hr Potassium Chloride/Dextrose/Sod Cl (D5 Ns With 20 Meq Kcl) 1,000 mls @ 100 mls/ hr IV ASDIRECTED [facility] Potassium Chloride/Dextrose/Sod Cl (D5 Ns With 20 Meq Kcl) 1,000 mls @ 100 mls/ hr IV ASDIRECTED [facility] Last Admin: 12/15/19 01:52 Dose: 100 mls/hr Magnesium Sulfate 4 gm/ Premix 50 mls @ 12.5 mls/hr IV ONETIME ONE Stop: 12/15/19 10:32 Last Admin: 12/15/19 08:51 Dose: 12.5 mls/hr Potassium Chloride 10 meq/ (Premix) 100 mls @ 100 mls/hr IV Q1H [facility] Stop: 12/15/19 10:44 Last Admin: 12/15/19 12:38 Dose: 100 mls/hr Lorazepam (Ativan) 1 mg IVPUSH ONETIME ONE Stop: 12/14/19 05:47 Last Admin: 12/14/19 06:03 Dose: 1 mg Metoclopramide HCl (Reglan) 7.5 mg IVPUSH ONETIME ONE Stop: 12/14/19 05:47 Last Admin: 12/14/19 06:03 Dose: 7.5 mg Potassium Chloride (Klor-Con M20) 40 meq PO ONETIME ONE Stop: 12/16/19 08:21 Last Admin: 12/16/19 09:00 Dose: 40 meq Thiamine HCl (Vitamin B-1) 100 mg IVPUSH ONETIME ONE Stop: 12/14/19 05:59 Last Admin: 12/14/19 07:44 Dose: 100 mg - Exam Quality Assessment: No: Supplemental Oxygen General: Sedated Neck: Supple Lungs: Clear to Auscultation, Normal Respiratory Effort Cardiovascular: Regular Rate, Regular Rhythm GI/Abdominal Exam: Normal Bowel Sounds, Soft, Non-Tender, No Distention Back Exam: Normal Inspection Extremities: Normal Inspection, Normal Range of Motion, Non-Tender, No Pedal Edema Skin: Warm, Dry, Intact Psy/Mental Status: Agitated, Withdrawal Symptoms Sepsis Event Note - Evaluation Sepsis Screening Result: No Definite Risk - Focused Exam Vital Signs: Vital Signs Temp Resp BP BP Pulse Ox 12/16/19 08:00 98.9 F 13 114/79 98 12/16/19 04:01 16 12/16/19 04:00 97.8 F 15 125/91 H 125/91 H 100 12/16/19 03:59 17 12/16/19 03:00 15 12/16/19 02:00 11 L 99 12/16/19 01:00 12 12/16/19 00:01 11 L 100 12/16/19 00:00 97.7 F 11 L 121/96 H 121/96 H 100 12/15/19 23:59 15 100 12/15/19 23:00 11 L 100 12/15/19 22:00 10 L Date Exam was Performed: 12/16/19 Time Exam was Performed: 12:44 - Problem List Review Problem List Initiated/Reviewed/Updated: Yes - My Orders Last 24 Hours: My Active Orders 12/15/19 09:00 Folic Acid 1 mg PO DAILY 12/15/19 12:58 Urinary Catheter Assessment [RC] Q4HR 12/15/19 13:00 Insert Jerome Catheter [Insert Urinary Catheter] [OM.PC] Q24H 12/15/19 14:02 One To One Therapy [BH] Stat 12/15/19 20:45 Dextrose 5%-Lactated Ringers 1,000 ml IV ASDIRECTED 12/16/19 03:00 chlordiazePOXIDE [Librium] 50 mg PO Q6H 12/16/19 Lunch Regular Diet [DIET] 12/17/19 05:11 CBC WITH AUTO DIFF [HEME] AM CMP [COMPREHENSIVE METABOLIC PN,CMP] [CHEM] AM MAGNESIUM [CHEM] AM 12/18/19 05:11 CBC WITH AUTO DIFF [HEME] AM CMP [COMPREHENSIVE METABOLIC PN,CMP] [CHEM] AM MAGNESIUM [CHEM] AM 12/19/19 05:11 CBC WITH AUTO DIFF [HEME] AM CMP [COMPREHENSIVE METABOLIC PN,CMP] [CHEM] AM MAGNESIUM [CHEM] AM - Plan Plan:: Assessment * Alcohol abuse disorder with active withdrawal -deteriorated * 750 mL/day of whiskey for the last 7 months * Previous hospitalization and rehabilitation for alcohol * Blood alcohol level 0.20 g% on admission * Second full day of admission. Continuing high level of nursing needs secondary to confusion and withdrawal symptoms. * Lactic acidosis -resolved, hyponatremia -resolved, alcoholic ketosis -resolved , * Initial lactic acid 9.1 with repeat of 4.8, sodium 136, anion gap 11.1, * Hypokalemia * Potassium 3.3 * To monitoring and replenish * Abdominal pain with history of fatty liver with elevated liver enzymes, bilirubin, with normal albumin and INR * Ultrasound last hospitalization in July demonstrated fatty liver * Bilirubin 4.0, GGT 75, AST 126, ALT 114 * Normal lipase of 278 * Right flank pain with microscopic hematuria * UA demonstrates RBC 5-10 * Last hospitalization patient had a slightly prominent collecting system of the right kidney which is more prominent than previous ultrasound. Uncertain if this represents a so-called functional UPJ obstruction or represents other obstruction. If patient has symptoms to the right kidney intravenous urogram study could be obtained to further evaluate. Plan * Admit to ICU for active alcohol withdrawal * Has become more confused and unstable requiring one-on-one care. * CIWAA protocol with Ativan * Librium 50 mg p.o. every q6 hours * Thiamine 100 mg IV every 8 hours * Folic acid 1 mg daily * Regular diet * Replete potassium * DC IV fluids * Zofran 4 mg IV every 4 hours as needed nausea * Case management and social research assistant consult * CT intravenous urogram for possible UPJ obstruction and microscopic hematuria held this morning secondary to confusion, will try again in the morning * VTE prophylaxis: Not needed, VTE score 1 * CODE STATUS: Full code * Anticipated length of stay 4 days
[2019-12-16] MEDS: Dextrose 5%-Lactated Ringers 1,000 ML IV SCH (10:07)
[2019-12-16] MEDS ORDERED: Sodium Chloride 0.9% 10 ML Syringe FLUSH PRN ×2 (11:13→20:56)
[2019-12-16] MEDS ORDERED: Iopamidol 612 MG/ML 100 ML Bottle IVPUSH ONE (11:13)
[2019-12-16] MEDS ORDERED: diphenhydrAMINE 50 MG/ML SDV IVPUSH ONE (11:15)
[2019-12-16] MEDS ORDERED: methylPREDNISolone Sodium Succinate 40 MG/1 ML SDV IVPUSH ONE (11:15)
--- NOTE | 2019-12-16 13:53 | CT ---
CT abdomen and pelvis (without and with intravenous contrast) Technique: Multiple axial sections were obtained from above the dome of the diaphragm inferiorly through the pubic symphysis. Intravenous contrast was not utilized. Intravenous contrast and given imaging obtained through the kidneys at 40 seconds. 8 minute delayed images were obtained from slightly below the top of the liver inferiorly to the pubic symphysis. No oral contrast has been given. Findings: Kidneys show no abnormal calcifications. Extrarenal pelvis is noted on the right side. No ureteral dilatation is seen. No ureteral stone is identified. Symmetric contrast enhancement is seen of both kidneys. Delayed images show contrast which pools within the extrarenal pelvis on the right side. Findings are felt compatible with so-called functional UPJ obstruction. Contrast is noted within the bladder. Left ureter shows minimal contrast. Right ureter shows no contrast. Other findings: Liver shows diffuse fatty infiltration. Visualized lung bases show nothing acute. Spleen appears normal in size. Adrenal glands show no nodule. Pancreas is within normal limits. Aorta shows no aneurysm. Gallbladder contains no calcified gallstones. No retroperitoneal adenopathy or mesenteric abnormalities are seen. No pelvic mass or adenopathy is seen. Jerome catheter is noted within the bladder. Appendix is seen and is normal in size. Mild increased stool is seen throughout the colon. Bone window settings were reviewed which appear within normal limits for the patient's age. Impression: 1. Diffuse fatty infiltration within the liver. 2. Mild increased stool throughout the colon. 3. 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 4. No additional abnormality is appreciated on CT study of the abdomen and pelvis. Diagnostic code #3 This report was dictated in [place] Standard Time
[2019-12-16] MEDS: Topiramate 25 MG Tab PO SCH ×2 (14:02→20:14)
[2019-12-16] MEDS: QUEtiapine 25 MG Tab PO SCH (20:14)
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
[2019-12-17] MEDS: chlordiazePOXIDE 25 MG Cap PO SCH ×8 (02:02→22:27)
[2019-12-17] MEDS: Topiramate 25 MG Tab PO SCH (08:01)
[2019-12-17] MEDS: Folic Acid 1 MG Tab PO SCH (08:02)
[2019-12-17] MEDS: Ondansetron 4 MG/2 ML SDV IV PRN (08:43)
[2019-12-17] MEDS: LORazepam 2 MG/ML SDV IVPUSH PRN (08:47)
[2019-12-17] MEDS ORDERED: Thiamine 100 MG Tab PO ONE (09:00)
[2019-12-17] MEDS ORDERED: diphenhydrAMINE 50 MG/ML SDV IVPUSH ONE (09:07)
[2019-12-17] MEDS ORDERED: chlordiazePOXIDE 25 MG Cap PO ONE (09:53)
--- NOTE | 2019-12-17 15:16 | PCM.PN ---
- General Info Date of Service: 12/17/19 Admission Dx/Problem (Free Text): Admission Diagnosis/Problem Admission Diagnosis/Problem Alcohol dependence Subjective Update: Patient continues to have some confusion and requiring extra doses of Ativan. He was seen by Dr. Dawson and psychiatry who recommended inpatient treatment. Functional Status: Reports: Pain Controlled - Review of Systems General: Reports: Weakness HEENT: Reports: No Symptoms Pulmonary: Reports: No Symptoms Cardiovascular: Reports: No Symptoms Gastrointestinal: Reports: No Symptoms Neurological: Reports: Confusion - Patient Data Vitals - Most Recent: Last Vital Signs Temp 97.6 F 12/17/19 12:00 Pulse 136 H 12/17/19 12:00 Resp 16 12/17/19 12:00 BP 107/61 12/17/19 12:00 Pulse Ox 100 12/17/19 12:00 Weight - Most Recent: 143 lb 3.2 oz I&O - Last 24 Hours: Intake & Output 12/17/19 12/17/19 12/17/19 06:59 14:59 22:59 Intake Total 800 0 Output Total 800 400 Balance 0 -400 Lab Results Last 24 Hours: Laboratory Results - last 24 hr 12/17/19 12/17/19 Range/Units 05:33 05:33 WBC 6.15 (4.23-9.07) K/mm3 RBC 4.15 L (4.63-6.08) M/mm3 Hgb 12.5 L (13.7-17.5) gm/dl Hct 39.2 L (40.1-51.0) % MCV 94.5 H D (79.0-92.2) fl MCH 30.1 (25.7-32.2) pg MCHC 31.9 L (32.2-35.5) g/dl RDW Std Deviation 42.3 (35.1-43.9) fL Plt Count 110 L (163-337) K/mm3 MPV 11.6 (9.4-12.3) fl Neut % (Auto) 69.5 H (34.0-67.9) % Lymph % (Auto) 17.7 L (21.8-53.1) % [place] % (Auto) 9.8 (5.3-12.2) % Eos % (Auto) 2.6 (0.8-7.0) Baso % (Auto) 0.2 (0.1-1.2) % Neut # (Auto) 4.28 (1.78-5.38) K/mm3 Lymph # (Auto) 1.09 L (1.32-3.57) K/mm3 [place] # (Auto) 0.60 (0.30-0.82) K/mm3 Eos # (Auto) 0.16 (0.04-0.54) K/mm3 Baso # (Auto) 0.01 (0.01-0.08) K/mm3 Sodium 138 (136-145) mEq/L Potassium 3.8 (3.5-5.1) mEq/L Chloride 103 (98-107) mEq/L Carbon Dioxide 26 (21-32) mEq/L Anion Gap 12.8 (5-15) BUN 17 (7-18) mg/dL Creatinine 0.7 (0.7-1.3) mg/dL Est Cr Clr Drug Dosing 126.30 mL/min Estimated GFR (MDRD) > 60 (>60) mL/min BUN/Creatinine Ratio 24.3 H (14-18) Glucose 99 (74-106) mg/dL Calcium 8.8 (8.5-10.1) mg/dL Magnesium 1.8 (1.8-2.4) mg/dl Total Bilirubin 2.3 H (0.2-1.0) mg/dL AST 179 H (15-37) U/L ALT 141 H (16-63) U/L Alkaline Phosphatase 69 (46-116) U/L Total Protein 6.5 (6.4-8.2) g/dl Albumin 3.3 L (3.4-5.0) g/dl Globulin 3.2 gm/dL Albumin/Globulin Ratio 1.0 (1-2) Med Orders - Current: Current Medications Chlordiazepoxide HCl (Librium) 25 mg PO Q4H CALI Folic Acid (Folic Acid) 1 mg PO DAILY [facility] Last Admin: 12/17/19 08:02 Dose: 1 mg Hydroxyzine HCl (Vistaril) 50 mg IM Q6H PRN PRN Reason: Nausea/Vomiting Last Admin: 12/16/19 00:19 Dose: 50 mg Lorazepam (Ativan) 0 mg IVPUSH Q1H PRN; Protocol PRN Reason: Withdrawal Symptoms Last Admin: 12/17/19 08:47 Dose: 1 mg Ondansetron HCl (Zofran) 4 mg IV Q4H PRN PRN Reason: Nausea/Vomiting Last Admin: 12/17/19 08:43 Dose: 4 mg Quetiapine Fumarate (Seroquel) 25 mg PO BEDTIME [facility] Last Admin: 12/16/19 20:14 Dose: 25 mg Sodium Chloride (Saline Flush) 10 ml FLUSH ASDIRECTED PRN PRN Reason: Keep Vein Open Discontinued Medications Chlordiazepoxide HCl (Librium) 50 mg PO Q6H [facility] Last Admin: 12/15/19 08:36 Dose: 50 mg Chlordiazepoxide HCl (Librium) 50 mg PO Q4H [facility] Last Admin: 12/15/19 20:10 Dose: 50 mg Chlordiazepoxide HCl (Librium) 50 mg PO Q6H [facility] Last Admin: 12/17/19 15:11 Dose: Not Given Chlordiazepoxide HCl (Librium) 25 mg PO ONETIME ONE Stop: 12/17/19 09:54 Last Admin: 12/17/19 13:39 Dose: Not Given Diphenhydramine HCl (Benadryl) 25 mg IVPUSH ONETIME ONE Stop: 12/16/19 11:16 Last Admin: 12/16/19 11:21 Dose: 25 mg Diphenhydramine HCl (Benadryl) 25 mg IVPUSH ONETIME ONE Stop: 12/17/19 09:08 Last Admin: 12/17/19 09:15 Dose: 25 mg Enoxaparin Sodium (Lovenox) 40 mg SUBCUT DAILY [facility] Last Admin: 12/15/19 08:46 Dose: 40 mg Folic Acid (Folic Acid) 1 mg IV ONETIME ONE Stop: 12/14/19 09:16 Last Admin: 12/14/19 10:31 Dose: 1 mg Haloperidol Lactate (Haldol) 5 mg IVPUSH ONETIME ONE Stop: 12/15/19 06:10 Last Admin: 12/15/19 06:14 Dose: 5 mg Haloperidol Lactate (Haldol) Confirm Administered Dose 5 mg .ROUTE .STK-MED ONE Stop: 12/15/19 06:13 Last Admin: 12/15/19 08:42 Dose: 5 mg Dextrose/Lactated Ringer's (Dextrose 5%-Lactated Ringers) 1,000 mls @ 999 mls/ hr IV ASDIRECTED [facility]I Last Admin: 12/14/19 06:02 Dose: 999 mls/hr Dextrose/Lactated Ringer's (Dextrose 5%-Lactated Ringers) 1,000 mls @ 999 mls/ hr IV ASDIRECTED [facility] Last Admin: 12/14/19 07:44 Dose: 999 mls/hr Potassium Chloride 10 meq/ (Premix) 100 mls @ 100 mls/hr IV Q1H [facility] Stop: 12/14/19 13:14 Last Admin: 12/14/19 13:00 Dose: 100 mls/hr Sodium Chloride (Normal Saline) 1,000 mls @ 999 mls/hr IV ONETIME ONE Stop: 12/14/19 09:40 Last Admin: 12/14/19 08:50 Dose: 999 mls/hr Potassium Chloride/Dextrose/Sod Cl (D5 Ns With 20 Meq Kcl) 1,000 mls @ 200 mls/ hr IV ASDIRECTED [facility] Last Infusion: 12/14/19 15:48 Dose: 100 mls/hr Potassium Chloride 10 meq/ (Premix) 100 mls @ 100 mls/hr IV Q1H [facility] Stop: 12/14/19 21:14 Last Admin: 12/14/19 21:04 Dose: 100 mls/hr Potassium Chloride/Dextrose/Sod Cl (D5 Ns With 20 Meq Kcl) 1,000 mls @ 100 mls/ hr IV ASDIRECTED CALI Potassium Chloride/Dextrose/Sod Cl (D5 Ns With 20 Meq Kcl) 1,000 mls @ 100 mls/ hr IV ASDIRECTED [facility] Last Admin: 12/15/19 01:52 Dose: 100 mls/hr Magnesium Sulfate 4 gm/ Premix 50 mls @ 12.5 mls/hr IV ONETIME ONE Stop: 12/15/19 10:32 Last Admin: 12/15/19 08:51 Dose: 12.5 mls/hr Potassium Chloride 10 meq/ (Premix) 100 mls @ 100 mls/hr IV Q1H [facility] Stop: 12/15/19 10:44 Last Admin: 12/15/19 12:38 Dose: 100 mls/hr Dextrose/Lactated Ringer's (Dextrose 5%-Lactated Ringers) 1,000 mls @ 75 mls/ hr IV ASDIRECTED [facility] Last Admin: 12/16/19 10:07 Dose: 75 mls/hr Iopamidol (Isovue-300 (61%)) 100 ml IVPUSH ONETIME ONE Stop: 12/16/19 11:14 Last Admin: 12/16/19 11:55 Dose: 100 ml Lorazepam (Ativan) 1 mg IVPUSH ONETIME ONE Stop: 12/14/19 05:47 Last Admin: 12/14/19 06:03 Dose: 1 mg Methylprednisolone Sodium Succinate (Solu-Medrol) 20 mg IVPUSH ONETIME ONE Stop: 12/16/19 11:16 Last Admin: 12/16/19 11:20 Dose: 20 mg Metoclopramide HCl (Reglan) 7.5 mg IVPUSH ONETIME ONE Stop: 12/14/19 05:47 Last Admin: 12/14/19 06:03 Dose: 7.5 mg Potassium Chloride (Klor-Con M20) 40 meq PO ONETIME ONE Stop: 12/16/19 08:21 Last Admin: 12/16/19 09:00 Dose: 40 meq Sodium Chloride (Saline Flush) 10 ml FLUSH ONETIME PRN PRN Reason: IV FLUSH Stop: 12/16/19 13:00 Last Admin: 12/16/19 11:55 Dose: 10 ml Thiamine HCl (Vitamin B-1) 100 mg IVPUSH ONETIME ONE Stop: 12/14/19 05:59 Last Admin: 12/14/19 07:44 Dose: 100 mg Thiamine HCl (Vitamin B-1) 100 mg IVPUSH Q8H [facility] Last Admin: 12/16/19 16:40 Dose: 100 mg Thiamine HCl (Vitamin B-1) 100 mg PO DAILY ONE Stop: 12/17/19 09:01 Last Admin: 12/17/19 08:01 Dose: 100 mg Topiramate (Topamax) 25 mg PO BID [facility] Last Admin: 12/17/19 08:01 Dose: 25 mg - Exam General: Other (Confused) HEENT: Pupils Equal, Mucous Membr. Moist/[place] Neck: Supple Lungs: Clear to Auscultation, Normal Respiratory Effort Cardiovascular: Regular Rate, Regular Rhythm GI/Abdominal Exam: Normal Bowel Sounds, Soft, Non-Tender, No Organomegaly, No Distention Extremities: Normal Inspection, Normal Range of Motion, Non-Tender, No Pedal Edema, Normal Capillary Refill Skin: Warm, Dry, Intact Psy/Mental Status: Alert, Normal Affect, Normal Mood Sepsis Event Note - Evaluation Sepsis Screening Result: No Definite Risk - Focused Exam Vital Signs: Vital Signs Temp Pulse Resp BP Pulse Ox 12/17/19 12:00 97.6 F 136 H 16 107/61 100 12/17/19 08:00 97.7 F 102 H 16 116/91 H 99 Date Exam was Performed: 12/17/19 Time Exam was Performed: 15:25 - Problem List Review Problem List Initiated/Reviewed/Updated: Yes - My Orders Last 24 Hours: My Active Orders 12/16/19 20:56 Sodium Chloride 0.9% [Saline Flush] 10 ml FLUSH ASDIRECTED PRN Convert IV to Saline Lock [OM.PC] Routine 12/17/19 15:15 chlordiazePOXIDE [Librium] 25 mg PO Q4H 12/18/19 05:11 CBC WITH AUTO DIFF [HEME] AM CMP [COMPREHENSIVE METABOLIC PN,CMP] [CHEM] AM MAGNESIUM [CHEM] AM 12/19/19 05:11 CBC WITH AUTO DIFF [HEME] AM CMP [COMPREHENSIVE METABOLIC PN,CMP] [CHEM] AM MAGNESIUM [CHEM] AM - Plan Plan:: Assessment * Alcohol abuse disorder with active withdrawal -improving * 750 mL/day of whiskey for the last 7 months * Previous hospitalization and rehabilitation for alcohol * Blood alcohol level 0.20 g% on admission * Thrid full day of admission. Continuing high level of nursing needs secondary to confusion and withdrawal symptoms. * Lactic acidosis -resolved, hyponatremia -resolved, alcoholic ketosis -resolved , * Hypokalemia - resolved * Potassium 4.3 * Abdominal pain with history of fatty liver with elevated liver enzymes, bilirubin, with normal albumin and INR * Ultrasound last hospitalization in July demonstrated fatty liver * Bilirubin 4.0, GGT 75, AST 126, ALT 114 * Normal lipase of 278 * CT abdomen: 1. Diffuse fatty infiltration within the liver. 2. Mild increased stool throughout the colon. 3. 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 4. No additional abnormalities appreciated on CT study of the abdomen and pelvis. * Right flank pain with microscopic hematuria * UA demonstrates RBC 5-10 * Last hospitalization patient had a slightly prominent collecting system of the right kidney which is more prominent than previous ultrasound. Uncertain if this represents a so-called functional UPJ obstruction or represents other obstruction. If patient has symptoms to the right kidney intravenous urogram study could be obtained to further evaluate. Plan * Admit to ICU for active alcohol withdrawal * Continue one-on-one care * CIWAA protocol with Ativan * Librium 25 mg p.o. every q6 hours starting tonight * Thiamine 100 mg p.o. every daily * Folic acid 1 mg daily * Regular diet * Zofran 4 mg IV every 4 hours as needed nausea * Case management and foster care social worker consult * VTE prophylaxis: Not indicated, VTE score 1 * CODE STATUS: Full code * Anticipated length of stay 4 days * Follow-up with urology as an outpatient for functional UPJ obstruction on the right side. See ultrasound result. * Length of stay greater than 96 hours secondary to prolonged alcohol detox.
[2019-12-17] MEDS ORDERED: traZODone 50 MG Tab PO ONE (19:20)
[2019-12-17] MEDS: QUEtiapine 25 MG Tab PO SCH (20:16)
[2019-12-17] MEDS ORDERED: diphenhydrAMINE 25 MG Cap PO ONE (21:59)
[2019-12-18] MEDS: chlordiazePOXIDE 25 MG Cap PO SCH ×5 (02:14→20:31)
[2019-12-18] MEDS: Folic Acid 1 MG Tab PO SCH (08:05)
[2019-12-18] MEDS: Thiamine 100 MG Tab PO SCH (08:05)
--- NOTE | 2019-12-18 14:56 | PCM.PN ---
- General Info Date of Service: 12/18/19 Admission Dx/Problem (Free Text): Admission Diagnosis/Problem Admission Diagnosis/Problem Alcohol dependence Subjective Update: Patient continues to improve. He also states he is starting to feel better. He continues to have a tremor. Functional Status: Reports: Pain Controlled - Review of Systems General: Reports: Weakness, Fatigue Pulmonary: Reports: No Symptoms Cardiovascular: Reports: No Symptoms Gastrointestinal: Reports: No Symptoms Neurological: Reports: Tremors - Patient Data Vitals - Most Recent: Last Vital Signs Temp 97.2 F 12/18/19 12:00 Pulse 72 12/18/19 12:00 Resp 16 12/18/19 12:00 BP 110/69 12/18/19 12:00 Pulse Ox 100 12/18/19 12:00 Weight - Most Recent: 144 lb 11.2 oz I&O - Last 24 Hours: Intake & Output 12/17/19 12/18/19 12/18/19 22:59 06:59 14:59 Intake Total 1220 500 100 Output Total 250 Balance 970 500 100 Lab Results Last 24 Hours: Laboratory Results - last 24 hr 12/18/19 12/18/19 Range/Units 05:38 05:38 WBC 5.33 (4.23-9.07) K/mm3 RBC 4.01 L (4.63-6.08) M/mm3 Hgb 12.0 L (13.7-17.5) gm/dl Hct 38.3 L (40.1-51.0) % MCV 95.5 H (79.0-92.2) fl MCH 29.9 (25.7-32.2) pg MCHC 31.3 L (32.2-35.5) g/dl RDW Std Deviation 43.0 (35.1-43.9) fL Plt Count 155 L (163-337) K/mm3 MPV 10.7 (9.4-12.3) fl Neut % (Auto) 52.7 (34.0-67.9) % Lymph % (Auto) 26.8 (21.8-53.1) % [place] % (Auto) 16.1 H (5.3-12.2) % Eos % (Auto) 3.6 (0.8-7.0) Baso % (Auto) 0.6 (0.1-1.2) % Neut # (Auto) 2.81 (1.78-5.38) K/mm3 Lymph # (Auto) 1.43 (1.32-3.57) K/mm3 [place] # (Auto) 0.86 H (0.30-0.82) K/mm3 Eos # (Auto) 0.19 (0.04-0.54) K/mm3 Baso # (Auto) 0.03 (0.01-0.08) K/mm3 Manual Slide Review Abnormal smear Sodium 137 (136-145) mEq/L Potassium 3.9 (3.5-5.1) mEq/L Chloride 102 (98-107) mEq/L Carbon Dioxide 25 (21-32) mEq/L Anion Gap 13.9 (5-15) BUN 23 H (7-18) mg/dL Creatinine 0.8 (0.7-1.3) mg/dL Est Cr Clr Drug Dosing 111.67 mL/min Estimated GFR (MDRD) > 60 (>60) mL/min BUN/Creatinine Ratio 28.8 H (14-18) Glucose 93 (74-106) mg/dL Calcium 9.3 (8.5-10.1) mg/dL Magnesium 1.8 (1.8-2.4) mg/dl Total Bilirubin 2.1 H (0.2-1.0) mg/dL AST 133 H (15-37) U/L ALT 155 H (16-63) U/L Alkaline Phosphatase 68 (46-116) U/L Total Protein 6.6 (6.4-8.2) g/dl Albumin 3.4 (3.4-5.0) g/dl Globulin 3.2 gm/dL Albumin/Globulin Ratio 1.1 (1-2) Med Orders - Current: Current Medications Chlordiazepoxide HCl (Librium) 25 mg PO QID [facility] Last Admin: 12/18/19 13:06 Dose: 25 mg Folic Acid (Folic Acid) 1 mg PO DAILY [facility] Last Admin: 12/18/19 08:05 Dose: 1 mg Hydroxyzine HCl (Vistaril) 50 mg IM Q6H PRN PRN Reason: Nausea/Vomiting Last Admin: 12/16/19 00:19 Dose: 50 mg Lorazepam (Ativan) 0 mg IVPUSH Q1H PRN; Protocol PRN Reason: Withdrawal Symptoms Last Admin: 12/17/19 08:47 Dose: 1 mg Ondansetron HCl (Zofran) 4 mg IV Q4H PRN PRN Reason: Nausea/Vomiting Last Admin: 12/17/19 08:43 Dose: 4 mg Quetiapine Fumarate (Seroquel) 25 mg PO BEDTIME [facility] Last Admin: 12/17/19 20:16 Dose: 25 mg Sodium Chloride (Saline Flush) 10 ml FLUSH ASDIRECTED PRN PRN Reason: Keep Vein Open Thiamine HCl (Vitamin B-1) 100 mg PO DAILY [facility] Last Admin: 12/18/19 08:05 Dose: 100 mg Discontinued Medications Chlordiazepoxide HCl (Librium) 50 mg PO Q6H [facility] Last Admin: 12/15/19 08:36 Dose: 50 mg Chlordiazepoxide HCl (Librium) 50 mg PO Q4H [facility] Last Admin: 12/15/19 20:10 Dose: 50 mg Chlordiazepoxide HCl (Librium) 50 mg PO Q6H [facility] Last Admin: 12/17/19 15:11 Dose: Not Given Chlordiazepoxide HCl (Librium) 25 mg PO ONETIME ONE Stop: 12/17/19 09:54 Last Admin: 12/17/19 13:39 Dose: Not Given Chlordiazepoxide HCl (Librium) 25 mg PO Q4H [facility] Last Admin: 12/18/19 07:12 Dose: 25 mg Diphenhydramine HCl (Benadryl) 25 mg IVPUSH ONETIME ONE Stop: 12/16/19 11:16 Last Admin: 12/16/19 11:21 Dose: 25 mg Diphenhydramine HCl (Benadryl) 25 mg IVPUSH ONETIME ONE Stop: 12/17/19 09:08 Last Admin: 12/17/19 09:15 Dose: 25 mg Diphenhydramine HCl (Benadryl) 25 mg PO ONETIME ONE Stop: 12/17/19 22:00 Last Admin: 12/17/19 22:28 Dose: 25 mg Enoxaparin Sodium (Lovenox) 40 mg SUBCUT DAILY [facility] Last Admin: 12/15/19 08:46 Dose: 40 mg Folic Acid (Folic Acid) 1 mg IV ONETIME ONE Stop: 12/14/19 09:16 Last Admin: 12/14/19 10:31 Dose: 1 mg Haloperidol Lactate (Haldol) 5 mg IVPUSH ONETIME ONE Stop: 12/15/19 06:10 Last Admin: 12/15/19 06:14 Dose: 5 mg Haloperidol Lactate (Haldol) Confirm Administered Dose 5 mg .ROUTE .STK-MED ONE Stop: 12/15/19 06:13 Last Admin: 12/15/19 08:42 Dose: 5 mg Dextrose/Lactated Ringer's (Dextrose 5%-Lactated Ringers) 1,000 mls @ 999 mls/ hr IV ASDIRECTED [facility] Last Admin: 12/14/19 06:02 Dose: 999 mls/hr Dextrose/Lactated Ringer's (Dextrose 5%-Lactated Ringers) 1,000 mls @ 999 mls/ hr IV ASDIRECTED [facility] Last Admin: 12/14/19 07:44 Dose: 999 mls/hr Potassium Chloride 10 meq/ (Premix) 100 mls @ 100 mls/hr IV Q1H [facility] Stop: 12/14/19 13:14 Last Admin: 12/14/19 13:00 Dose: 100 mls/hr Sodium Chloride (Normal Saline) 1,000 mls @ 999 mls/hr IV ONETIME ONE Stop: 12/14/19 09:40 Last Admin: 12/14/19 08:50 Dose: 999 mls/hr Potassium Chloride/Dextrose/Sod Cl (D5 Ns With 20 Meq Kcl) 1,000 mls @ 200 mls/ hr IV ASDIRECTED [facility] Last Infusion: 12/14/19 15:48 Dose: 100 mls/hr Potassium Chloride 10 meq/ (Premix) 100 mls @ 100 mls/hr IV Q1H [facility] Stop: 12/14/19 21:14 Last Admin: 12/14/19 21:04 Dose: 100 mls/hr Potassium Chloride/Dextrose/Sod Cl (D5 Ns With 20 Meq Kcl) 1,000 mls @ 100 mls/ hr IV ASDIRECTED [facility] Potassium Chloride/Dextrose/Sod Cl (D5 Ns With 20 Meq Kcl) 1,000 mls @ 100 mls/ hr IV ASDIRECTED [facility] Last Admin: 12/15/19 01:52 Dose: 100 mls/hr Magnesium Sulfate 4 gm/ Premix 50 mls @ 12.5 mls/hr IV ONETIME ONE Stop: 12/15/19 10:32 Last Admin: 12/15/19 08:51 Dose: 12.5 mls/hr Potassium Chloride 10 meq/ (Premix) 100 mls @ 100 mls/hr IV Q1H [facility] Stop: 12/15/19 10:44 Last Admin: 12/15/19 12:38 Dose: 100 mls/hr Dextrose/Lactated Ringer's (Dextrose 5%-Lactated Ringers) 1,000 mls @ 75 mls/ hr IV ASDIRECTED [facility] Last Admin: 12/16/19 10:07 Dose: 75 mls/hr Iopamidol (Isovue-300 (61%)) 100 ml IVPUSH ONETIME ONE Stop: 12/16/19 11:14 Last Admin: 12/16/19 11:55 Dose: 100 ml Lorazepam (Ativan) 1 mg IVPUSH ONETIME ONE Stop: 12/14/19 05:47 Last Admin: 12/14/19 06:03 Dose: 1 mg Methylprednisolone Sodium Succinate (Solu-Medrol) 20 mg IVPUSH ONETIME ONE Stop: 12/16/19 11:16 Last Admin: 12/16/19 11:20 Dose: 20 mg Metoclopramide HCl (Reglan) 7.5 mg IVPUSH ONETIME ONE Stop: 12/14/19 05:47 Last Admin: 12/14/19 06:03 Dose: 7.5 mg Potassium Chloride (Klor-Con M20) 40 meq PO ONETIME ONE Stop: 12/16/19 08:21 Last Admin: 12/16/19 09:00 Dose: 40 meq Sodium Chloride (Saline Flush) 10 ml FLUSH ONETIME PRN PRN Reason: IV FLUSH Stop: 12/16/19 13:00 Last Admin: 12/16/19 11:55 Dose: 10 ml Thiamine HCl (Vitamin B-1) 100 mg IVPUSH ONETIME ONE Stop: 12/14/19 05:59 Last Admin: 12/14/19 07:44 Dose: 100 mg Thiamine HCl (Vitamin B-1) 100 mg IVPUSH Q8H [facility] Last Admin: 12/16/19 16:40 Dose: 100 mg Thiamine HCl (Vitamin B-1) 100 mg PO DAILY ONE Stop: 12/17/19 09:01 Last Admin: 12/17/19 08:01 Dose: 100 mg Topiramate (Topamax) 25 mg PO BID [facility] Last Admin: 12/17/19 08:01 Dose: 25 mg Trazodone HCl (Trazodone) 50 mg PO ONETIME ONE Stop: 12/17/19 19:21 Last Admin: 12/17/19 19:27 Dose: 50 mg - Exam General: Alert, Oriented HEENT: Pupils Equal, Mucous Membr. Moist/[place] Neck: Supple Lungs: Clear to Auscultation, Normal Respiratory Effort Cardiovascular: Regular Rate, Regular Rhythm GI/Abdominal Exam: Normal Bowel Sounds, Soft, Non-Tender, No Organomegaly, No Distention Extremities: Normal Inspection, Normal Range of Motion, No Pedal Edema Neurological: Other (Resting tremor and intention tremor) Psy/Mental Status: Alert, Normal Affect, Normal Mood Sepsis Event Note - Evaluation Sepsis Screening Result: No Definite Risk - Focused Exam Vital Signs: Vital Signs Temp Pulse Resp BP Pulse Ox 12/18/19 12:00 97.2 F 72 16 110/69 100 12/18/19 08:05 97.3 F 106 H 16 121/79 100 12/18/19 03:57 96.9 F 84 14 122/84 100 Date Exam was Performed: 12/18/19 Time Exam was Performed: 14:52 - Problem List Review Problem List Initiated/Reviewed/Updated: Yes - My Orders Last 24 Hours: My Active Orders 12/17/19 20:46 Discontinue Telemetry Monitoring [Cardiac Monitoring Discontinue] [RC] Click to Edit 12/18/19 09:00 Thiamine [Vitamin B-1] 100 mg PO DAILY 12/18/19 10:22 OT Evaluation and Treatment [CONS] Routine PT Evaluation and Treatment [CONS] Routine 12/18/19 12:58 Patient Status [ADT] Routine 12/18/19 13:00 chlordiazePOXIDE [Librium] 25 mg PO QID 12/19/19 05:11 CBC WITH AUTO DIFF [HEME] AM CMP [COMPREHENSIVE METABOLIC PN,CMP] [CHEM] AM MAGNESIUM [CHEM] AM - Plan Plan:: Assessment * Alcohol abuse disorder with active withdrawal -improving * 750 mL/day of whiskey for the last 7 months * Previous hospitalization and rehabilitation for alcohol * Blood alcohol level 0.20 g% on admission * Thrid full day of admission. Continuing high level of nursing needs secondary to confusion and withdrawal symptoms. * Lactic acidosis -resolved, hyponatremia -resolved, alcoholic ketosis -resolved * Tremor * Likely a combination of muscular deconditioning and possibly some neurological involvement can secondary to his alcoholism. I doubt this has much to do with withdrawal at this point. * Hypokalemia - resolved * Potassium 4.3 * Abdominal pain with history of fatty liver with elevated liver enzymes, bilirubin, with normal albumin and INR * Ultrasound last hospitalization in July demonstrated fatty liver * Bilirubin 4.0, GGT 75, AST 126, ALT 114 * Normal lipase of 278 * CT abdomen: 1. Diffuse fatty infiltration within the liver. 2. Mild increased stool throughout the colon. 3. 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 4. No additional abnormalities appreciated on CT study of the abdomen and pelvis. * Right flank pain with microscopic hematuria * UA demonstrates RBC 5-10 * Last hospitalization patient had a slightly prominent collecting system of the right kidney which is more prominent than previous ultrasound. Uncertain if this represents a so-called functional UPJ obstruction or represents other obstruction. If patient has symptoms to the right kidney intravenous urogram study could be obtained to further evaluate. Plan * Changed to MedSurg status * CIWAA protocol with Ativan * Librium 25 mg p.o. every q6 hours starting tonight. Plan discontinuation tomorrow * Thiamine 100 mg p.o. every daily * Folic acid 1 mg daily * Regular diet * Zofran 4 mg IV every 4 hours as needed nausea * Case management and social media content specialist consult * VTE prophylaxis: Not indicated, VTE score 1 * CODE STATUS: Full code * Anticipated length of stay 4 days * Follow-up with urology as an outpatient for functional UPJ obstruction on the right side. See ultrasound result. * Length of stay greater than 96 hours secondary to prolonged alcohol detox. * He should be medically stable for discharge tomorrow.
[2019-12-18] MEDS: QUEtiapine 25 MG Tab PO SCH (20:31)
[2019-12-19] MEDS: Thiamine 100 MG Tab PO SCH (08:08)
[2019-12-19] MEDS: chlordiazePOXIDE 25 MG Cap PO SCH (08:08)
[2019-12-19] MEDS: Folic Acid 1 MG Tab PO SCH (08:08)
--- NOTE | 2019-12-19 11:52 | PCM.DCSUM1 ---
Discharge Summary - Hospital Course HPI Initial Comments: 44-year-old male with a history of alcohol abuse returns to the emergency room today after 4 days of vomiting. Patient states approximately 7 months ago when his left him he started drinking heavily again. He was seen here and admitted in June 2019 for alcohol detox and went through treatment program. Apparently shortly after he returned from his treatment he started drinking again secondary to the break-up of his marriage. Patient is currently drinking 750 mL of whiskey a day. He denies any episodes of alcohol withdrawal seizures or DTs. Patient does complain of right sided upper abdominal pain secondary to vomiting. Patient was given 1 mg of Ativan by EMS and another milligram of Ativan while in the emergency room. Diagnosis: Stroke: No - Discharge Data Discharge Date: 12/19/19 Discharge Disposition: DC/Tfer to Inpt Rehab Fac 62 Condition: Good - Referral to Home Health Primary Care Physician: PCP None - Patient Summary/Data Consults: Consultations 12/14/19 09:13 Consult to Case Management/Machine Setter And Repairer [CONS] Routine 12/18/19 10:22 OT Evaluation and Treatment [CONS] Routine PT Evaluation and Treatment [CONS] Routine Hospital Course: Patient was admitted to the ICU for close observation. He was placed on a CIWA protocol initially with Ativan as needed. We did have to initiate Librium and weaned it over 4 days. Patient underwent physical therapy because of his weakness from his longstanding alcoholism. Patient also was placed on Seroquel at night, thiamine and folic acid daily. He was seen by Dr. Dawson from psychiatry who recommended inpatient substance abuse counseling. [facility] accepted him for inpatient treatment. - Patient Instructions Diet: Usual Diet as Tolerated Activity: As Tolerated Driving: Do Not Drive Showering/Bathing: May Shower - Discharge Plan *PRESCRIPTION DRUG MONITORING PROGRAM REVIEWED*: Not Applicable *COPY OF PRESCRIPTION DRUG MONITORING REPORT IN PATIENT ANGEL: Not Applicable Prescriptions/Med Rec: Folic Acid 1 mg PO DAILY #30 tablet QUEtiapine [SEROquel] 25 mg PO BEDTIME #30 tablet Thiamine [Vitamin B-1] 100 mg PO DAILY #30 tablet Home Medications: Home Meds Folic Acid 1 mg PO DAILY #30 tablet 12/19/19 [Rx] QUEtiapine [SEROquel] 25 mg PO BEDTIME #30 tablet 12/19/19 [Rx] Thiamine [Vitamin B-1] 100 mg PO DAILY #30 tablet 12/19/19 [Rx] Patient Handouts: Alcohol Withdrawal Syndrome, Smokeless Tobacco Information, Adult Referrals: Marlee Euceda MD [Ordering Only Provider] - - Discharge Summary/Plan Comment DC Time >30 min.: Yes Discharge Summary/Plan Comment: Transferred to [facility] for inpatient substance abuse treatment. - General Info Date of Service: 12/19/19 Admission Dx/Problem (Free Text: Admission Diagnosis/Problem Admission Diagnosis/Problem Alcohol dependence Subjective Update: Serafin states he is feeling much better. He is in agreement with going to [facility] for further treatment. Functional Status: Reports: Pain Controlled - Review of Systems General: Reports: No Symptoms HEENT: Reports: No Symptoms Pulmonary: Reports: No Symptoms Cardiovascular: Reports: No Symptoms Gastrointestinal: Reports: No Symptoms Musculoskeletal: Reports: No Symptoms Skin: Reports: No Symptoms Neurological: Reports: No Symptoms - Patient Data Vitals - Most Recent: Last Vital Signs Temp 97.6 F 12/19/19 09:00 Pulse 100 12/19/19 09:00 Resp 14 12/19/19 09:00 BP 108/81 12/19/19 09:00 Pulse Ox 100 12/19/19 09:00 Weight - Most Recent: 145 lb 4.8 oz I&O - Last 24 hours: Intake & Output 12/18/19 12/19/19 12/19/19 22:59 06:59 14:59 Intake Total 440 480 180 Output Total 800 Balance 440 -320 180 Lab Results - Last 24 hrs: Laboratory Results - last 24 hr 12/19/19 12/19/19 Range/Units 06:00 06:00 WBC 4.81 (4.23-9.07) K/mm3 RBC 4.24 L (4.63-6.08) M/mm3 Hgb 12.6 L (13.7-17.5) gm/dl Hct 40.6 (40.1-51.0) % MCV 95.8 H (79.0-92.2) fl MCH 29.7 (25.7-32.2) pg MCHC 31.0 L (32.2-35.5) g/dl RDW Std Deviation 43.4 (35.1-43.9) fL Plt Count 238 D (163-337) K/mm3 MPV 10.1 (9.4-12.3) fl Neut % (Auto) 49.3 (34.0-67.9) % Lymph % (Auto) 31.4 (21.8-53.1) % [place] % (Auto) 14.8 H (5.3-12.2) % Eos % (Auto) 3.5 (0.8-7.0) Baso % (Auto) 0.6 (0.1-1.2) % Neut # (Auto) 2.37 (1.78-5.38) K/mm3 Lymph # (Auto) 1.51 (1.32-3.57) K/mm3 [place] # (Auto) 0.71 (0.30-0.82) K/mm3 Eos # (Auto) 0.17 (0.04-0.54) K/mm3 Baso # (Auto) 0.03 (0.01-0.08) K/mm3 Sodium 139 (136-145) mEq/L Potassium 3.7 (3.5-5.1) mEq/L Chloride 101 (98-107) mEq/L Carbon Dioxide 29 (21-32) mEq/L Anion Gap 12.7 (5-15) BUN 26 H (7-18) mg/dL Creatinine 1.0 (0.7-1.3) mg/dL Est Cr Clr Drug Dosing 89.71 mL/min Estimated GFR (MDRD) > 60 (>60) mL/min BUN/Creatinine Ratio 26.0 H (14-18) Glucose 119 H (74-106) mg/dL Calcium 9.7 (8.5-10.1) mg/dL Magnesium 1.8 (1.8-2.4) mg/dl Total Bilirubin 1.6 H (0.2-1.0) mg/dL AST 86 H (15-37) U/L ALT 143 H (16-63) U/L Alkaline Phosphatase 81 (46-116) U/L Total Protein 7.1 (6.4-8.2) g/dl Albumin 3.7 (3.4-5.0) g/dl Globulin 3.4 gm/dL Albumin/Globulin Ratio 1.1 (1-2) Med Orders - Current: Current Medications Chlordiazepoxide HCl (Librium) 25 mg PO QID [facility] Last Admin: 12/19/19 08:08 Dose: 25 mg Folic Acid (Folic Acid) 1 mg PO DAILY [facility] Last Admin: 12/19/19 08:08 Dose: 1 mg Hydroxyzine HCl (Vistaril) 50 mg IM Q6H PRN PRN Reason: Nausea/Vomiting Last Admin: 12/16/19 00:19 Dose: 50 mg Lorazepam (Ativan) 0 mg IVPUSH Q1H PRN; Protocol PRN Reason: Withdrawal Symptoms Last Admin: 12/17/19 08:47 Dose: 1 mg Ondansetron HCl (Zofran) 4 mg IV Q4H PRN PRN Reason: Nausea/Vomiting Last Admin: 12/17/19 08:43 Dose: 4 mg Quetiapine Fumarate (Seroquel) 25 mg PO BEDTIME [facility] Last Admin: 12/18/19 20:31 Dose: 25 mg Sodium Chloride (Saline Flush) 10 ml FLUSH ASDIRECTED PRN PRN Reason: Keep Vein Open Thiamine HCl (Vitamin B-1) 100 mg PO DAILY [facility] Last Admin: 12/19/19 08:08 Dose: 100 mg Discontinued Medications Chlordiazepoxide HCl (Librium) 50 mg PO Q6H [facility] Last Admin: 12/15/19 08:36 Dose: 50 mg Chlordiazepoxide HCl (Librium) 50 mg PO Q4H [facility] Last Admin: 12/15/19 20:10 Dose: 50 mg Chlordiazepoxide HCl (Librium) 50 mg PO Q6H [facility] Last Admin: 12/17/19 15:11 Dose: Not Given Chlordiazepoxide HCl (Librium) 25 mg PO ONETIME ONE Stop: 12/17/19 09:54 Last Admin: 12/17/19 13:39 Dose: Not Given Chlordiazepoxide HCl (Librium) 25 mg PO Q4H [facility] Last Admin: 12/18/19 07:12 Dose: 25 mg Diphenhydramine HCl (Benadryl) 25 mg IVPUSH ONETIME ONE Stop: 12/16/19 11:16 Last Admin: 12/16/19 11:21 Dose: 25 mg Diphenhydramine HCl (Benadryl) 25 mg IVPUSH ONETIME ONE Stop: 12/17/19 09:08 Last Admin: 12/17/19 09:15 Dose: 25 mg Diphenhydramine HCl (Benadryl) 25 mg PO ONETIME ONE Stop: 12/17/19 22:00 Last Admin: 12/17/19 22:28 Dose: 25 mg Enoxaparin Sodium (Lovenox) 40 mg SUBCUT DAILY [facility] Last Admin: 12/15/19 08:46 Dose: 40 mg Folic Acid (Folic Acid) 1 mg IV ONETIME ONE Stop: 12/14/19 09:16 Last Admin: 12/14/19 10:31 Dose: 1 mg Haloperidol Lactate (Haldol) 5 mg IVPUSH ONETIME ONE Stop: 12/15/19 06:10 Last Admin: 12/15/19 06:14 Dose: 5 mg Haloperidol Lactate (Haldol) Confirm Administered Dose 5 mg .ROUTE .STK-MED ONE Stop: 12/15/19 06:13 Last Admin: 12/15/19 08:42 Dose: 5 mg Dextrose/Lactated Ringer's (Dextrose 5%-Lactated Ringers) 1,000 mls @ 999 mls/ hr IV ASDIRECTED [facility] Last Admin: 12/14/19 06:02 Dose: 999 mls/hr Dextrose/Lactated Ringer's (Dextrose 5%-Lactated Ringers) 1,000 mls @ 999 mls/ hr IV ASDIRECTED [facility] Last Admin: 12/14/19 07:44 Dose: 999 mls/hr Potassium Chloride 10 meq/ (Premix) 100 mls @ 100 mls/hr IV Q1H [facility] Stop: 12/14/19 13:14 Last Admin: 12/14/19 13:00 Dose: 100 mls/hr Sodium Chloride (Normal Saline) 1,000 mls @ 999 mls/hr IV ONETIME ONE Stop: 12/14/19 09:40 Last Admin: 12/14/19 08:50 Dose: 999 mls/hr Potassium Chloride/Dextrose/Sod Cl (D5 Ns With 20 Meq Kcl) 1,000 mls @ 200 mls/ hr IV ASDIRECTED [facility] Last Infusion: 12/14/19 15:48 Dose: 100 mls/hr Potassium Chloride 10 meq/ (Premix) 100 mls @ 100 mls/hr IV Q1H [facility] Stop: 12/14/19 21:14 Last Admin: 12/14/19 21:04 Dose: 100 mls/hr Potassium Chloride/Dextrose/Sod Cl (D5 Ns With 20 Meq Kcl) 1,000 mls @ 100 mls/ hr IV ASDIRECTED [facility] Potassium Chloride/Dextrose/Sod Cl (D5 Ns With 20 Meq Kcl) 1,000 mls @ 100 mls/ hr IV ASDIRECTED [facility] Last Admin: 12/15/19 01:52 Dose: 100 mls/hr Magnesium Sulfate 4 gm/ Premix 50 mls @ 12.5 mls/hr IV ONETIME ONE Stop: 12/15/19 10:32 Last Admin: 12/15/19 08:51 Dose: 12.5 mls/hr Potassium Chloride 10 meq/ (Premix) 100 mls @ 100 mls/hr IV Q1H [facility] Stop: 12/15/19 10:44 Last Admin: 12/15/19 12:38 Dose: 100 mls/hr Dextrose/Lactated Ringer's (Dextrose 5%-Lactated Ringers) 1,000 mls @ 75 mls/ hr IV ASDIRECTED [facility] Last Admin: 12/16/19 10:07 Dose: 75 mls/hr Iopamidol (Isovue-300 (61%)) 100 ml IVPUSH ONETIME ONE Stop: 12/16/19 11:14 Last Admin: 12/16/19 11:55 Dose: 100 ml Lorazepam (Ativan) 1 mg IVPUSH ONETIME ONE Stop: 12/14/19 05:47 Last Admin: 12/14/19 06:03 Dose: 1 mg Methylprednisolone Sodium Succinate (Solu-Medrol) 20 mg IVPUSH ONETIME ONE Stop: 12/16/19 11:16 Last Admin: 12/16/19 11:20 Dose: 20 mg Metoclopramide HCl (Reglan) 7.5 mg IVPUSH ONETIME ONE Stop: 12/14/19 05:47 Last Admin: 12/14/19 06:03 Dose: 7.5 mg Potassium Chloride (Klor-Con M20) 40 meq PO ONETIME ONE Stop: 12/16/19 08:21 Last Admin: 12/16/19 09:00 Dose: 40 meq Sodium Chloride (Saline Flush) 10 ml FLUSH ONETIME PRN PRN Reason: IV FLUSH Stop: 12/16/19 13:00 Last Admin: 12/16/19 11:55 Dose: 10 ml Thiamine HCl (Vitamin B-1) 100 mg IVPUSH ONETIME ONE Stop: 12/14/19 05:59 Last Admin: 12/14/19 07:44 Dose: 100 mg Thiamine HCl (Vitamin B-1) 100 mg IVPUSH Q8H [facility] Last Admin: 12/16/19 16:40 Dose: 100 mg Thiamine HCl (Vitamin B-1) 100 mg PO DAILY ONE Stop: 12/17/19 09:01 Last Admin: 12/17/19 08:01 Dose: 100 mg Topiramate (Topamax) 25 mg PO BID [facility] Last Admin: 12/17/19 08:01 Dose: 25 mg Trazodone HCl (Trazodone) 50 mg PO ONETIME ONE Stop: 12/17/19 19:21 Last Admin: 12/17/19 19:27 Dose: 50 mg - Exam General: Reports: Alert, Oriented HEENT: Reports: Pupils Equal, Mucous Membr. Moist/[place] Neck: Reports: Supple Lungs: Reports: Clear to Auscultation, Normal Respiratory Effort Cardiovascular: Reports: Regular Rate, Regular Rhythm GI/Abdominal Exam: Normal Bowel Sounds, Soft, Non-Tender, No Organomegaly, No Distention, No Abnormal Bruit, No Mass, Pelvis Stable Extremities: Normal Inspection, Normal Range of Motion, Non-Tender, No Pedal Edema Skin: Reports: Warm, Dry, Intact Neurological: Reports: No New Focal Deficit Psy/Mental Status: Reports: Alert, Normal Affect, Normal Mood
== END 2019-12-19 12:56 | DRG 897 ==
LOC: JD.ED 05:32 → JD.ICU 08:59
PROVIDERS: ADMIT Family Medicine; ATTEND Family Medicine
DX: F10.231 Alcohol dependence with withdrawal delirium (principal); E87.2 Acidosis; E87.1 Hypo-osmolality and hyponatremia; K21.9 Gastro-esophageal reflux disease without esophagitis; E87.6 Hypokalemia; R31.29 Other microscopic hematuria; F42.9 Obsessive-compulsive disorder, unspecified; Y90.0 Blood alcohol level of less than 20 mg/100 ml; Z88.0 Allergy status to penicillin; Z91.030 Bee allergy status; Z88.1 Allergy status to other antibiotic agents; Z91.013 Allergy to seafood; Z71.41 Alcohol abuse counseling and surveillance of alcoholic
CPT/HCPCS: 36415; 51702; 71045; 71045-26; 74178; 74178-26; 80053; 80306; 80307; 81001; 82009; 82962; 82977; 83605; 83690; 83735; 85025; 85610; 85730; 86140; 93005; 93010; 96361; 96365; 96375; 97116-GP; 97162-GP; 97165-GO; 97535-GO; 99285; 99285-25; A9270-GY; J1200; J1630; J1650; J2060; J2405; J2765; J2920; J3410; J3411; J3475; J3480; J7030; J7121; Q9967

== ENCOUNTER 2020-02-28 14:31 | Emergency (ER) | payer MEDICAID ==
[2020-02-28] MEDS ORDERED: Sodium Chloride 0.9% 1,000 ML IV ONE (15:06)
[2020-02-28] MEDS ORDERED: Sodium Chloride 0.9% 10 ML Syringe FLUSH PRN (15:06)
[2020-02-28] MEDS ORDERED: Metoclopramide 10 MG/2 ML SDV IVPUSH ONE (15:06)
[2020-02-28] MEDS ORDERED: LORazepam 2 MG/ML SDV IVPUSH ONE (15:06)
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
[2020-02-28] MEDS ORDERED: Lactated Ringers 1,000 ML IV ONE (17:03)
[2020-02-28] MEDS ORDERED: LORazepam 2 MG/ML SDV IV ONE (18:07)
== END 2020-02-28 18:18 ==
LOC: JD.ED 14:31
DX: F10.10 Alcohol abuse, uncomplicated (principal); E86.0 Dehydration; F17.210 Nicotine dependence, cigarettes, uncomplicated; Z91.030 Bee allergy status; Z88.0 Allergy status to penicillin; Z88.1 Allergy status to other antibiotic agents; Z91.013 Allergy to seafood
CPT/HCPCS: 36415; 80053; 80307; 82977; 83690; 83735; 85025; 85610; 85730; 96361; 96374; 96375; 96376; 99285; J2060; J2765; J7030; J7120; 99283

== ENCOUNTER 2020-05-02 00:43 | Emergency (ER) | payer BC, MEDICAID ==
[2020-05-02] MEDS ORDERED: LORazepam 2 MG/ML SDV IVPUSH STA (01:54)
[2020-05-02] MEDS ORDERED: Ondansetron 4 MG/2 ML SDV IVPUSH ONE (01:54)
[2020-05-02] MEDS ORDERED: Lactated Ringers 1,000 ML IV ONE ×4 (01:54→06:11)
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
[2020-05-02 03:01] LABS: ACETAMINOPHEN 0 ug/mL (10-30)
== END 2020-05-02 09:50 | disposition home or self-care (01) ==
LOC: JD.ED 00:43
DX: F10.229 Alcohol dependence with intoxication, unspecified (principal); Z91.030 Bee allergy status; Z91.013 Allergy to seafood; Z88.0 Allergy status to penicillin; Z88.1 Allergy status to other antibiotic agents; Z87.891 Personal history of nicotine dependence; Y90.8 Blood alcohol level of 240 mg/100 ml or more
CPT/HCPCS: 36415; 80053; 80306; 80307; 83735; 84443; 85007; 85027; 93005; 96361; 96374; 96375; 99285; J2060; J2405; J7120

== ENCOUNTER 2020-05-02 16:24 | Emergency (ER) | payer MEDICAID ==
[2020-05-02] MEDS ORDERED: Sodium Chloride 0.9% 10 ML Syringe FLUSH PRN (16:35)
[2020-05-02] MEDS ORDERED: LORazepam 2 MG/ML SDV IVPUSH ONE ×2 (17:16→19:09)
[2020-05-02] MEDS ORDERED: Ondansetron 4 MG/2 ML SDV IVPUSH ONE (17:16)
[2020-05-02] MEDS ORDERED: Sodium Chloride 0.9% 1,000 ML IV SCH (17:30)
--- NOTE | 2020-05-02 18:11 | EDM.PDOC ---
ED HPI GENERAL MEDICAL PROBLEM - General Chief Complaint: Drug or Alcohol Abuse Stated Complaint: [facility] Time Seen by Provider: 05/02/20 16:33 Source of Information: Reports: Patient History Limitations: Reports: No Limitations - History of Present Illness INITIAL COMMENTS - FREE TEXT/NARRATIVE: Patient is a 44-year-old male brought into the emergency department by [facility] with complaints of alcohol withdrawal. He has a long history of alcohol abuse. States last drink was yesterday. He was seen in our emergency department early this morning for similar complaints and at that time his blood alcohol was found to be 0.37. He received the fluids and was discharged home. He states when he got home, his withdrawal symptoms worsen. He ended up falling but denies hitting his head. He states that he "slid down the wall "did not hit his head. He has been working with [facility] on an outpatient basis for alcohol treatment. Denies any history of seizures, hallucinations, or DTs with alcohol withdrawal. He states he had been sober for 7 months prior to coming to the ER, however his medical records indicate otherwise. He is open to going to the [facility] bed. Generalized Pain Score (Numeric/FACES): 10 - Related Data Allergies Allergy/AdvReac Type Severity Reaction Status Date / Time bee venom protein (honey bee) Allergy Intermediate Anaphylactic Verified 05/02/20 16:32 Shock Penicillins Allergy Intermediate Hives Verified 05/02/20 16:32 amoxicillin Allergy Cannot Verified 05/02/20 16:32 Remember shellfish derived Allergy Cannot Verified 05/02/20 16:32 Remember bee Allergy Anaphylactic Uncoded 05/02/20 07:31 Shock Home Meds: Home Meds Thiamine [Vitamin B-1] 100 mg PO DAILY #30 tablet 12/19/19 [Rx] Past Medical History Respiratory History: Reports: None Gastrointestinal History: Reports: GERD Musculoskeletal History: Reports: Other (See Below) Other Musculoskeletal History: Shoulder surgery Psychiatric History: Reports: Addiction Other Psychiatric History: Alcohol use Immunologic History: Reports: None Dermatologic History: Reports: None - Infectious Disease History Infectious Disease History: Reports: None - Past Surgical History Head Surgeries/Procedures: Reports: None HEENT Surgical History: Reports: Other (See Below) GI Surgical History: Reports: Other (See Below) Oncologic Surgical History: Reports: None Social & Family History - Family History Family Medical History: Unobtainable Cardiac: Reports: High Cholesterol, [place], Other (See Below) Other Cardiac Family History: mother had a stroke - Tobacco Use Smoking Status *Q: Former Smoker Used Tobacco, but Quit: Yes Month/Year Tobacco Last Used: 2007 - Caffeine Use Caffeine Use: Reports: None Other Caffeine Use: unable to answer when asked. - Recreational Drug Use Recreational Drug Use: No - Living Situation & Occupation Living situation: Reports: , Alone Occupation: Unemployed ED ROS GENERAL - Review of Systems Review Of Systems: See Below Constitutional: Reports: No Symptoms. Denies: Fever, Chills, Weakness HEENT: Reports: No Symptoms Respiratory: Reports: No Symptoms Cardiovascular: Reports: No Symptoms Endocrine: Reports: No Symptoms GI/Abdominal: Reports: Nausea, Vomiting. Denies: Abdominal Pain : Reports: No Symptoms Musculoskeletal: Reports: No Symptoms Skin: Reports: No Symptoms Neurological: Reports: Tremors. Denies: Dizziness, Headache Psychiatric: Reports: No Symptoms Hematologic/Lymphatic: Reports: No Symptoms Immunologic: Reports: No Symptoms ED EXAM, GENERAL - Physical Exam Exam: See Below Exam Limited By: No Limitations General Appearance: Alert, WD/WN, Anxious Head: Atraumatic, Normocephalic Respiratory/Chest: No Respiratory Distress, Lungs Clear, Normal Breath Sounds, No Accessory Muscle Use, Chest Non-Tender Cardiovascular: Normal Peripheral Pulses, Regular Rate, Rhythm, No Edema, No Gallop, No JVD, No Murmur, No Rub GI/Abdominal: Normal Bowel Sounds, Soft, Non-Tender, No Organomegaly, No Distention, No Abnormal Bruit, No Mass Neurological: Alert, Oriented, Other (Tremors) Psychiatric: Normal Affect, Normal Mood Skin Exam: Warm, Dry, Intact, Normal Color, No Rash Course - Vital Signs Last Recorded V/S: Last Vital Signs Temp 98.1 F 05/02/20 16:26 Pulse 78 05/02/20 16:26 Resp 16 05/02/20 16:26 BP Pulse Ox 96 05/02/20 16:26 - Orders/Labs/Meds Orders: Active Orders 24 hr Category Date Time Status Peripheral IV Care [RC] . DIRECTED Care 05/02/20 16:35 Active Sodium Chloride 0.9% [Normal Saline] 1,000 ml Med 05/02/20 17:30 Active IV ASDIRECTED Sodium Chloride 0.9% [Saline Flush] Med 05/02/20 16:35 Active 10 ml FLUSH ASDIRECTED PRN Peripheral IV Insertion Adult [OM.PC] Stat Oth 05/02/20 16:35 Ordered Medication Orders Sodium Chloride (Normal Saline) 1,000 mls @ 999 mls/hr IV ASDIRECTED CALI Last Admin: 05/02/20 17:43 Dose: 150 mls/hr Documented by: LOWELL Sodium Chloride (Saline Flush) 10 ml FLUSH ASDIRECTED PRN PRN Reason: Keep Vein Open Last Admin: 05/02/20 18:13 Dose: 10 ml Documented by: OUMAR Labs: Laboratory Tests 05/02/20 05/02/20 Range/Units 17:08 17:08 WBC 3.07 L (4.23-9.07) K/mm3 RBC 3.64 L (4.63-6.08) M/mm3 Hgb 11.2 L D (13.7-17.5) gm/dl Hct 33.8 L (40.1-51.0) % MCV 92.9 H D (79.0-92.2) fl MCH 30.8 (25.7-32.2) pg MCHC 33.1 (32.2-35.5) g/dl RDW Std Deviation 44.9 H (35.1-43.9) fL Plt Count 119 L (163-337) K/mm3 MPV 9.2 L (9.4-12.3) fl Neut % (Auto) 79.4 H (34.0-67.9) % Lymph % (Auto) 11.1 L (21.8-53.1) % Sibley % (Auto) 7.8 (5.3-12.2) % Eos % (Auto) 0.7 L (0.8-7.0) Baso % (Auto) 1.0 (0.1-1.2) % Neut # (Auto) 2.44 (1.78-5.38) K/mm3 Lymph # (Auto) 0.34 L (1.32-3.57) K/mm3 Sibley # (Auto) 0.24 L (0.30-0.82) K/mm3 Eos # (Auto) 0.02 L (0.04-0.54) K/mm3 Baso # (Auto) 0.03 (0.01-0.08) K/mm3 Sodium 135 L (136-145) mEq/L Potassium 3.2 L (3.5-5.1) mEq/L Chloride 93 L (98-107) mEq/L Carbon Dioxide 27 (21-32) mEq/L Anion Gap 18.2 H (5-15) BUN 16 (7-18) mg/dL Creatinine 1.0 (0.7-1.3) mg/dL Est Cr Clr Drug Dosing 98.78 mL/min Estimated GFR (MDRD) > 60 (>60) mL/min BUN/Creatinine Ratio 16.0 (14-18) Glucose 118 H (74-106) mg/dL Calcium 8.3 L (8.5-10.1) mg/dL Total Bilirubin 4.0 H (0.2-1.0) mg/dL AST 227 H (15-37) U/L ALT 217 H (16-63) U/L Alkaline Phosphatase 54 (46-116) U/L Total Protein 6.1 L (6.4-8.2) g/dl Albumin 3.6 (3.4-5.0) g/dl Globulin 2.5 gm/dL Albumin/Globulin Ratio 1.4 (1-2) Ethyl Alcohol 0.05 (0.00) gm% Meds: Medications Generic Name Dose Route Start Last Admin Trade Name Freq PRN Reason Stop Dose Admin Sodium Chloride 1,000 mls @ 999 mls/hr 05/02/20 17:30 05/02/20 17:43 Normal Saline IV 150 mls/hr ASDIRECTED CALI Administration Sodium Chloride 10 ml 05/02/20 16:35 05/02/20 18:13 Saline Flush FLUSH 10 ml ASDIRECTED PRN Administration Keep Vein Open Discontinued Medications Generic Name Dose Route Start Last Admin Trade Name Freq PRN Reason Stop Dose Admin Lorazepam 0.5 mg 05/02/20 17:16 05/02/20 17:46 Ativan IVPUSH 05/02/20 17:17 0.5 mg ONETIME ONE Administration Lorazepam 0.5 mg 05/02/20 19:09 05/02/20 19:19 Ativan IVPUSH 05/02/20 19:10 0.5 mg ONETIME ONE Administration Ondansetron HCl 4 mg 05/02/20 17:16 05/02/20 17:43 Zofran IVPUSH 05/02/20 17:17 4 mg ONETIME ONE Administration Potassium Chloride 40 meq 05/02/20 18:16 05/02/20 18:44 Klor-Con M20 PO 05/02/20 18:17 40 meq ONETIME ONE Administration - Re-Assessments/Exams Free Text/Narrative Re-Assessment/Exam: Exam, patient appears anxious and does have a generalized tremor. He denies any auditory or visual hallucinations. After much discussion, he has declined a CT of his head. Stating he did not hit his head but rather "slid down the wall ". He has no headache. Neurologic exam is normal with the exception of the tremor. He denies any additional alcohol use after leaving the ER last night. I ordered a CBC, CMP, blood alcohol. Ordered NS at 150 mils per hour and Ativan 0.5 mg IV. 05/02/20 18:15 Otology significant for WBC slightly low at 3.07, hemoglobin 11.2, platelets low at 119, sodium 135, potassium 3.2, anion gap 18.2, AST 227, ALT 217 blood alcohol 0.05. Patient's tremors improved substantially with Ativan 0.5 mg. He is open to [facility] to the [facility]. We will contact them to discuss admission. Anion gap was elevated 18. 2, therefore we will open his bag of NS up into a bolus. 05/02/20 19:29 Patient has been accepted to the [facility]. I will write an Insta med prescription for tapering Ativan as well as Zofran for nausea. Discharge instructions as documented. Departure - Departure Time of Disposition: 19:30 Disposition: Home, Self-Care 01 Condition: Good Clinical Impression: Alcohol withdrawal syndrome Qualifiers: Complication of substance-induced condition: uncomplicated Qualified Code(s): F10.230 - Alcohol dependence with withdrawal, uncomplicated - Discharge Information *PRESCRIPTION DRUG MONITORING PROGRAM REVIEWED*: Yes *COPY OF PRESCRIPTION DRUG MONITORING REPORT IN PATIENT ANGEL: No Instructions: Alcohol Withdrawal Syndrome Referrals: PCP,None [Primary Care Provider] - Additional Instructions: You were seen in the emergency department today for alcohol withdrawal symptoms. Blood work was completed. Your blood alcohol was 0.05. Potassium was slightly low at 3.2, however this was replaced with oral potassium. While in the ER, you received 2 doses of Ativan 0.5 mg through your IV bolus a liter of IV fluids. You have been accepted into the [facility]. A prescription for tapering Ativan for your withdrawal symptoms and Zofran for nausea has been given. Please cooperate with the treatment plan as set in place by [facility]. Return to the ER as needed. Sepsis Event Note (ED) - Evaluation Sepsis Screening Result: No Definite Risk - Focused Exam Vital Signs: Vital Signs Temp Pulse Resp Pulse Ox 05/02/20 16:26 98.1 F 78 16 96 - My Orders Last 24 Hours: My Active Orders 05/02/20 16:35 Peripheral IV Care [RC] . DIRECTED Sodium Chloride 0.9% [Saline Flush] 10 ml FLUSH ASDIRECTED PRN Peripheral IV Insertion Adult [OM.PC] Stat 05/02/20 17:30 Sodium Chloride 0.9% [Normal Saline] 1,000 ml IV ASDIRECTED - Assessment/Plan Last 24 Hours: My Active Orders 05/02/20 16:35 Peripheral IV Care [RC] . DIRECTED Sodium Chloride 0.9% [Saline Flush] 10 ml FLUSH ASDIRECTED PRN Peripheral IV Insertion Adult [OM.PC] Stat 05/02/20 17:30 Sodium Chloride 0.9% [Normal Saline] 1,000 ml IV ASDIRECTED
[2020-05-02] MEDS ORDERED: Potassium Chloride 20 MEQ Tab.ER PO ONE (18:16)
== END 2020-05-02 19:49 | disposition home or self-care (01) ==
LOC: JD.ED 16:24
DX: F10.230 Alcohol dependence with withdrawal, uncomplicated (principal); Y90.2 Blood alcohol level of 40-59 mg/100 ml; Z91.030 Bee allergy status; Z88.0 Allergy status to penicillin; Z88.1 Allergy status to other antibiotic agents; Z91.013 Allergy to seafood; Z87.891 Personal history of nicotine dependence
CPT/HCPCS: 36415; 80053; 80307; 85025; 96361; 96374; 96375; 96376; 99285; A9270; J2060; J2405; J7030

== ENCOUNTER 2020-05-03 02:49 | Emergency (ER) | payer MEDICAID ==
[2020-05-03] MEDS ORDERED: Sodium Chloride 0.9% 10 ML Syringe FLUSH PRN (03:20)
[2020-05-03] MEDS ORDERED: Thiamine 200 MG/2 ML MDV IVPUSH ONE (03:21)
[2020-05-03] MEDS ORDERED: MVI, Adult with Vitamin K 10 ML in Dextrose 5%-Lactated Ringers 1,000 ML IV ONE ×2 (03:22)
[2020-05-03] MEDS ORDERED: LORazepam 2 MG/ML SDV IVPUSH ONE ×2 (03:23→05:31)
[2020-05-03] MEDS ORDERED: Ondansetron 4 MG/2 ML SDV IVPUSH ONE (03:23)
[2020-05-03] MEDS ORDERED: Folic Acid 50 MG/10 ML MDV IV ONE (03:23)
[2020-05-03] MEDS ORDERED: Sodium Chloride 0.9% 1,000 ML IV SCH (03:30)
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
[2020-05-03] MEDS ORDERED: Potassium Chloride 20 MEQ in Dextrose 5% in Water 1,000 ML IV SCH ×2 (06:45)
[2020-05-03] MEDS ORDERED: NS + KCl 20mEq/L 1,000 ML IV SCH (06:45)
== END 2020-05-03 07:32 ==
LOC: JD.ED 02:49
DX: F10.230 Alcohol dependence with withdrawal, uncomplicated (principal); E87.6 Hypokalemia; E80.6 Other disorders of bilirubin metabolism; Z88.1 Allergy status to other antibiotic agents; Z88.0 Allergy status to penicillin; Z91.030 Bee allergy status; Z91.013 Allergy to seafood
CPT/HCPCS: 36415; 80053; 80307; 83735; 85025; 96365; 96366; 96368; 96375; 96376; 99285; J2060; J2405; J3411; J3475; J3480; J7030; J7121; 99284

== ENCOUNTER 2020-06-16 03:36 | Inpatient (IN) | payer BC, MEDICAID ==
[2020-06-16] MEDS ORDERED: Ondansetron 4 MG/2 ML SDV ONE (03:41)
[2020-06-16] MEDS ORDERED: Thiamine 200 MG/2 ML MDV IVPUSH ONE (03:53)
[2020-06-16] MEDS ORDERED: Folic Acid 50 MG/10 ML MDV IV ONE (03:53)
[2020-06-16] MEDS ORDERED: LORazepam 2 MG/ML SDV IVPUSH ONE (04:08)
[2020-06-16] MEDS ORDERED: cloNIDine 0.1 MG Tab PO ONE (04:09)
[2020-06-16] MEDS ORDERED: chlordiazePOXIDE 25 MG Cap PO ONE (04:10)
--- NOTE | 2020-06-16 04:51 | EDM.PDOCBH ---
ED HPI GENERAL MEDICAL PROBLEM - General Chief Complaint: Drug or Alcohol Abuse Stated Complaint: [facility] Time Seen by Provider: 06/16/20 03:43 Source of Information: Reports: Patient History Limitations: Reports: No Limitations - History of Present Illness INITIAL COMMENTS - FREE TEXT/NARRATIVE: This is a 44-year-old male. He apparently is going through an ugly divorce and went to see his to get his stuff about 2 weeks ago. It did not go well and on the way home he said screw it and picked up a case of beer. He began drinking a 12 pack case a day for the last 2 weeks. He says he wants to get off of the beer and so he started to wean himself off 3 days ago. His last drink was a small sip of beer about 3 hours before coming to the ER. He is complai janine of the shakes and nausea and vomiting and he denies any delirium. He does have a history of going through a [facility] detox program as an inpatient back in June 2019 but apparently it did not work out and he has been to no other programs. He called the ambulance this evening because of the shakes and his symptoms of nausea and vomiting and abdominal cramps. He tells me he wants to get off his alcohol. The last time he vomited at home he pulled something in his throat it felt like and there were little flecks of blood noted in the vomitus but no bright red blood. - Related Data Allergies Allergy/AdvReac Type Severity Reaction Status Date / Time bee venom protein (honey bee) Allergy Intermediate Anaphylactic Verified 06/16/20 12:06 Shock Penicillins Allergy Intermediate Hives Verified 06/16/20 12:06 amoxicillin Allergy Cannot Verified 06/16/20 12:06 Remember shellfish derived Allergy Cannot Verified 06/16/20 12:06 Remember bee Allergy Anaphylactic Uncoded 06/16/20 12:06 Shock Home Meds: Home Meds Folic Acid 1 mg PO DAILY 06/16/20 [History] Past Medical History - Past Health History Medical/Surgical History: Denies Medical/Surgical History Respiratory History: Reports: None Gastrointestinal History: Reports: GERD Musculoskeletal History: Reports: Other (See Below) Other Musculoskeletal History: Shoulder surgery Psychiatric History: Reports: Addiction Other Psychiatric History: Alcohol use Immunologic History: Reports: None Dermatologic History: Reports: None - Infectious Disease History Infectious Disease History: Reports: None - Past Surgical History Head Surgeries/Procedures: Reports: None HEENT Surgical History: Reports: Other (See Below) GI Surgical History: Reports: Other (See Below) Oncologic Surgical History: Reports: None Social & Family History - Family History Family Medical History: Unobtainable Cardiac: Reports: High Cholesterol, [place], Other (See Below) Other Cardiac Family History: mother had a stroke - Tobacco Use Smoking Status *Q: Never Smoker Second Hand Smoke Exposure: No - Caffeine Use Caffeine Use: Reports: Coffee Other Caffeine Use: unable to answer when asked. - Alcohol Use Date of Last Drink: 06/16/20 Time of Last Drink: 02:00 - Recreational Drug Use Recreational Drug Use: No - Living Situation & Occupation Living situation: Reports: , Alone Occupation: Unemployed ED ROS GENERAL - Review of Systems Review Of Systems: See Below Constitutional: Reports: Weakness. Denies: Fever, Chills HEENT: Reports: No Symptoms Respiratory: Denies: Shortness of Breath, Cough Cardiovascular: Reports: No Symptoms Endocrine: Reports: Fatigue GI/Abdominal: Reports: Abdominal Pain, Nausea, Vomiting. Denies: Diarrhea : Reports: No Symptoms Musculoskeletal: Reports: No Symptoms Skin: Reports: No Symptoms Neurological: Reports: Tremors Psychiatric: Reports: Agitation, Anxiety Hematologic/Lymphatic: Reports: No Symptoms ED EXAM, BEHAVIORAL HEALTH - Physical Exam Exam: See Below Exam Limited By: No Limitations General Appearance: Alert, WD/WN, Mild Distress, Other (Has bouts of increased shaking that diminish when I distract his attention but they never quit) Eye Exam: Bilateral Eye: Normal Inspection Ears: Normal External Exam, Normal Canal, Normal TMs Nose: Normal Inspection Throat/Mouth: Normal Lips, Normal Voice, No Airway Compromise, Other (Tacky mucous membranes noted) Head: Normocephalic Neck: Supple Respiratory/Chest: No Respiratory Distress, Lungs Clear, Normal Breath Sounds Cardiovascular: Regular Rate, Rhythm, No Murmur, Tachycardia GI/Abdominal: Soft, Other (Tender all over his abdomen on palpation and bowel sounds are decreased. There does not appear to be any masses noted. There does not appear to be any rebound noted.) Back Exam: Full Range of Motion Extremities: Normal Inspection, Normal Range of Motion Neurological: Alert, Oriented x 3 Psychiatric: Agitated. No: Auditory Hallucinations, Visual Hallucinations Skin Exam: Warm, Dry COURSE, BEHAVIORAL HEALTH COMP - Course Vital Signs: Last Vital Signs Temp 97.6 F 06/16/20 16:00 Pulse 96 06/16/20 06:26 Resp 16 06/16/20 16:00 BP 129/79 06/16/20 16:00 Pulse Ox 98 06/16/20 16:00 Orders, Labs, Meds: Active Orders 24 hr Category Date Time Status Patient Status [ADT] Routine ADT 06/16/20 07:35 Active Antiembolic Devices [RC] .ASDIRECTED Care 06/16/20 07:41 Active Bedrest Bedside Commode [RC] .ASDIRECTED Care 06/16/20 07:34 Active CIWAA Assessment [RC] Q15M Care 06/16/20 07:35 Active CIWAA Assessment [RC] Q1H Care 06/16/20 07:35 Active CIWAA Assessment [RC] Q1HR Care 06/16/20 07:35 Active Notify Provider [RC] .PRN Care 06/16/20 07:35 Active Oxygen Therapy [RC] .PRN Care 06/16/20 07:35 Active VTE/DVT Education [RC] ,21 Care 06/16/20 07:35 Active Consult to Case Management/Proposal Rep [CONS] Cons 06/16/20 07:34 Active Routine Consult to Physician [CONS] Routine Cons 06/16/20 07:34 Active Consult to Spiritual Care [CONS] Routine Cons 06/16/20 07:34 Active Regular Diet [DIET] Diet 06/16/20 Lunch Active BASIC METABOLIC PANEL,BMP [CHEM] AM Lab 06/17/20 05:11 Ordered CBC WITH AUTO DIFF [HEME] AM Lab 06/17/20 05:11 Ordered MAGNESIUM [CHEM] AM Lab 06/17/20 05:11 Ordered PHOSPHORUS [CHEM] AM Lab 06/17/20 05:11 Ordered Dextrose 5%-Lactated Ringers 1,000 ml Med 06/16/20 05:00 Active IV ASDIRECTED Folic Acid Med 06/16/20 09:00 Active 1 mg PO DAILY LORazepam [Ativan] Med 06/16/20 07:45 Active See Protocol IV ASDIRECTED LORazepam [Ativan] Med 06/16/20 07:45 Active See Protocol PO ASDIRECTED Thiamine [Vitamin B-1] Med 06/18/20 09:00 Active 100 mg PO DAILY Antiembolic Hose [OM.PC] Per Unit Routine Oth 06/16/20 07:39 Ordered Resuscitation Status Routine Resus Stat 06/16/20 07:34 Ordered Medication Orders Folic Acid (Folic Acid) 1 mg PO DAILY CALI Stop: 06/18/20 09:01 Last Admin: 06/16/20 10:08 Dose: 1 mg Documented by: ALONSO Hydralazine HCl (Apresoline) 10 mg IVPUSH Q2H PRN PRN Reason: Hypertension Dextrose/Lactated Ringer's (Dextrose 5%-Lactated Ringers) 1,000 mls @ 999 mls/hr IV ASDIRECTED CALI Last Admin: 06/16/20 06:20 Dose: 500 mls/hr Documented by: ADRIEL dexMEDEtomidine in dextrose 5% (400 mcg/ Premix) 100 mls @ 0 mls/hr IV TITRATE CALI; Protocol Lorazepam (Ativan) 0 mg IV ASDIRECTED CALI; Protocol Last Admin: 06/16/20 17:02 Dose: 1 mg Documented by: ALONOS Lorazepam (Ativan) 0 mg PO ASDIRECTED CALI; Protocol Last Admin: 06/16/20 14:16 Dose: 1 mg Documented by: Admin: 06/16/20 11:35 Dose: 1 mg Documented by: Admin: 06/16/20 10:13 Dose: 1 mg Documented by: ALONSO Thiamine HCl (Vitamin B-1) 100 mg PO DAILY [facility] Laboratory Tests 06/16/20 06/16/20 06/16/20 Range/Units 04:15 04:15 04:15 WBC 11.64 H (4.23-9.07) K/mm3 RBC 5.20 (4.63-6.08) M/mm3 Hgb 16.4 D (13.7-17.5) gm/dl Hct 47.1 (40.1-51.0) % MCV 90.6 (79.0-92.2) fl MCH 31.5 (25.7-32.2) pg MCHC 34.8 (32.2-35.5) g/dl RDW Std Deviation 40.4 (35.1-43.9) fL Plt Count 257 D (163-337) K/mm3 MPV 9.6 (9.4-12.3) fl Neut % (Auto) 88.6 H (34.0-67.9) % Lymph % (Auto) 6.3 L (21.8-53.1) % [place] % (Auto) 4.5 L (5.3-12.2) % Eos % (Auto) 0 L (0.8-7.0) Baso % (Auto) 0.3 (0.1-1.2) % Neut # (Auto) 10.33 H (1.78-5.38) K/mm3 Lymph # (Auto) 0.73 L (1.32-3.57) K/mm3 [place] # (Auto) 0.52 (0.30-0.82) K/mm3 Eos # (Auto) 0.00 L (0.04-0.54) K/mm3 Baso # (Auto) 0.03 (0.01-0.08) K/mm3 Manual Slide Review Abnormal smear Sodium 133 L (136-145) mEq/L Potassium 3.0 L (3.5-5.1) mEq/L Chloride 92 L (98-107) mEq/L Carbon Dioxide 23 (21-32) mEq/L Anion Gap 21.0 H (5-15) BUN 21 H (7-18) mg/dL Creatinine 1.0 (0.7-1.3) mg/dL Est Cr Clr Drug Dosing 97.55 mL/min Estimated GFR (MDRD) > 60 (>60) mL/min BUN/Creatinine Ratio 21.0 H (14-18) Glucose 147 H (74-106) mg/dL Calcium 8.1 L (8.5-10.1) mg/dL Phosphorus 2.6 (2.6-4.7) mg/dL Magnesium 1.8 (1.8-2.4) mg/dl Total Bilirubin 2.2 H (0.2-1.0) mg/dL AST 31 (15-37) U/L ALT 25 (16-63) U/L Alkaline Phosphatase 83 (46-116) U/L Total Protein 7.5 (6.4-8.2) g/dl Albumin 3.7 (3.4-5.0) g/dl Globulin 3.8 gm/dL Albumin/Globulin Ratio 1.0 (1-2) Urine Color (Yellow) Urine Appearance (Clear) Urine pH (5.0-8.0) Ur Specific [place] (1.005-1.030) Urine Protein (Negative) Urine Glucose (UA) (Negative) Urine Ketones (Negative) Urine Occult Blood (Negative) Urine Nitrite (Negative) Urine Bilirubin (Negative) Urine Urobilinogen (0.2-1.0) Ur Leukocyte Esterase (Negative) U Hyaline Cast (Auto) (0-5) /lpf Urine RBC (0-5) /hpf Urine WBC (0-5) /hpf Ur Squamous Epith Cells (0-5) /hpf Urine Bacteria (FEW) /hpf Urine Mucus (FEW) /hpf Urine Opiates Screen (DPESPE=855) Ur Buprenorphine Scrn (CUTOFF=10) Ur Oxycodone Screen (MUV4HG=700) Urine Methadone Screen (TJW2MB=182) Ur Propoxyphene Screen (YFBLLC=633) Ur Barbiturates Screen (QGINKH=150) Ur Tricyclics Screen (ZHENON=872) Ur Phencyclidine Scrn (CUTOFF=25) Ur Amphetamine Screen (HTRGNO=045) U Methamphetamines Scrn (IBMMIW=491) U Benzodiazepines Scrn (ZVBXWY=498) U Cocaine Metab Screen (IOZCGD=098) U Marijuana (THC) Screen (CUTOFF=50) Ethyl Alcohol 0.09 (0.00) gm% COVID-19 (BRIDGET) (NEGATIVE) 06/16/20 06/16/20 06/16/20 Range/Units 06:25 06:25 06:36 WBC (4.23-9.07) K/mm3 RBC (4.63-6.08) M/mm3 Hgb (13.7-17.5) gm/dl Hct (40.1-51.0) % MCV (79.0-92.2) fl MCH (25.7-32.2) pg MCHC (32.2-35.5) g/dl RDW Std Deviation (35.1-43.9) fL Plt Count (163-337) K/mm3 MPV (9.4-12.3) fl Neut % (Auto) (34.0-67.9) % Lymph % (Auto) (21.8-53.1) % [place] % (Auto) (5.3-12.2) % Eos % (Auto) (0.8-7.0) Baso % (Auto) (0.1-1.2) % Neut # (Auto) (1.78-5.38) K/mm3 Lymph # (Auto) (1.32-3.57) K/mm3 [place] # (Auto) (0.30-0.82) K/mm3 Eos # (Auto) (0.04-0.54) K/mm3 Baso # (Auto) (0.01-0.08) K/mm3 Manual Slide Review Sodium (136-145) mEq/L Potassium (3.5-5.1) mEq/L Chloride (98-107) mEq/L Carbon Dioxide (21-32) mEq/L Anion Gap (5-15) BUN (7-18) mg/dL Creatinine (0.7-1.3) mg/dL Est Cr Clr Drug Dosing mL/min Estimated GFR (MDRD) (>60) mL/min BUN/Creatinine Ratio (14-18) Glucose (74-106) mg/dL Calcium (8.5-10.1) mg/dL Phosphorus (2.6-4.7) mg/dL Magnesium (1.8-2.4) mg/dl Total Bilirubin (0.2-1.0) mg/dL AST (15-37) U/L ALT (16-63) U/L Alkaline Phosphatase (46-116) U/L Total Protein (6.4-8.2) g/dl Albumin (3.4-5.0) g/dl Globulin gm/dL Albumin/Globulin Ratio (1-2) Urine Color Yellow (Yellow) Urine Appearance Clear (Clear) Urine pH 6.5 (5.0-8.0) Ur Specific [place] > or = 1.030 (1.005-1.030) Urine Protein 2+ H (Negative) Urine Glucose (UA) Negative (Negative) Urine Ketones 2+ H (Negative) Urine Occult Blood Negative (Negative) Urine Nitrite Negative (Negative) Urine Bilirubin Negative (Negative) Urine Urobilinogen 1.0 (0.2-1.0) Ur Leukocyte Esterase Negative (Negative) U Hyaline Cast (Auto) 5-10 H (0-5) /lpf Urine RBC 0-5 (0-5) /hpf Urine WBC Not seen (0-5) /hpf Ur Squamous Epith Cells Not seen (0-5) /hpf Urine Bacteria Few (FEW) /hpf Urine Mucus Moderate H (FEW) /hpf Urine Opiates Screen Negative (BJFCTA=317) Ur Buprenorphine Scrn Negative (CUTOFF=10) Ur Oxycodone Screen Negative (AEH1BZ=186) Urine Methadone Screen Negative (RDW3DR=629) Ur Propoxyphene Screen Negative (HEMAWS=424) Ur Barbiturates Screen Negative (EQSPIS=863) Ur Tricyclics Screen Negative (OIHYJJ=002) Ur Phencyclidine Scrn Negative (CUTOFF=25) Ur Amphetamine Screen Negative (UFMVTW=232) U Methamphetamines Scrn Negative (MPUPBB=964) U Benzodiazepines Scrn Negative (TEQAQR=969) U Cocaine Metab Screen Negative (BLZAEN=755) U Marijuana (THC) Screen Negative (CUTOFF=50) Ethyl Alcohol (0.00) gm% COVID-19 (BRIDGET) Negative (NEGATIVE) Medications Generic Name Dose Route Start Last Admin Trade Name Freq PRN Reason Stop Dose Admin Folic Acid 1 mg 06/16/20 09:00 06/16/20 10:08 Folic Acid PO 06/18/20 09:01 1 mg DAILY CALI Administration Hydralazine HCl 10 mg 06/16/20 07:44 Apresoline IVPUSH Q2H PRN Hypertension Dextrose/Lactated Ringer's 1,000 mls @ 999 mls/hr 06/16/20 05:00 06/16/20 06:20 Dextrose 5%-Lactated Ringers IV 500 mls/hr ASDIRECTED CALI Administration dexMEDEtomidine in dextrose 5% 100 mls @ 0 mls/hr 06/16/20 09:15 400 mcg/ Premix IV TITRATE CALI Protocol Lorazepam 0 mg 06/16/20 07:45 06/16/20 17:02 Ativan IV 1 mg ASDIRECTED CALI Administration Protocol Lorazepam 0 mg 06/16/20 07:45 06/16/20 14:16 Ativan PO 1 mg ASDIRECTED CALI Administration Protocol Thiamine HCl 100 mg 06/18/20 09:00 Vitamin B-1 PO DAILY CALI Discontinued Medications Generic Name Dose Route Start Last Admin Trade Name Freq PRN Reason Stop Dose Admin Chlordiazepoxide HCl 50 mg 06/16/20 04:10 06/16/20 04:29 Librium PO 06/16/20 04:11 50 mg ONETIME ONE Administration Clonidine HCl 0.1 mg 06/16/20 04:09 06/16/20 04:30 Catapres PO 06/16/20 04:10 0.1 mg ONETIME ONE Administration Folic Acid 1 mg 06/16/20 03:53 06/16/20 06:26 Folic Acid IV 06/16/20 03:54 Not Given ONETIME ONE Sodium Chloride 1,000 mls @ 999 mls/hr 06/16/20 07:34 06/16/20 08:05 Normal Saline IV 06/16/20 08:34 999 mls/hr ONETIME ONE Administration Thiamine HCl 1,000 mg/ 1,018.2 mls @ 125 mls/hr 06/16/20 07:45 Magnesium Sulfate 4 gm/ Folic IV Acid 1 mg/ Dextrose/Sodium ASDIRECTED CALI Chloride Thiamine HCl 1,000 mg/ 1,018.2 mls @ 125 mls/hr 06/16/20 10:00 06/16/20 10:14 Magnesium Sulfate 4 gm/ Folic IV 06/16/20 18:08 125 mls/hr Acid 1 mg/ Dextrose/Sodium ONETIME ONE Administration Chloride Lorazepam 1 mg 06/16/20 04:08 06/16/20 04:31 Ativan IVPUSH 06/16/20 04:09 1 mg ONETIME ONE Administration Ondansetron HCl Confirm 06/16/20 03:41 06/16/20 03:53 Zofran Administered 06/16/20 03:42 4 mg Dose Administration 4 mg .ROUTE .STK-MED ONE Thiamine HCl 100 mg 06/16/20 03:53 06/16/20 04:30 Vitamin B-1 IVPUSH 06/16/20 03:54 100 mg ONETIME ONE Administration Discharge vs Psych Eval/Treatment:: 06/16/20 06:15 Spoke to the patient regarding his sodium of 133 potassium 3.0 anion gap of 21 and his alcohol of 0.09. 06/16/20 06:19 The patient is much more calm now he is not shaking any longer denies any abdominal pain denies any nausea. His blood pressure is down from 161/92 123/71. I gave him the choice to go home with a few Librium or to stay in the hospital to be detox and he wants to stay in the hospital. 06/16/20 07:[address] Redman and she will admit the patient for further evaluation and treatment Departure - Departure Time of Disposition: 07:10 Disposition: Admitted As Inpatient 68 Condition: Fair Clinical Impression: Alcohol abuse, Elevated blood pressure reading, Volume depletion, Hypokalemia, Hyponatremia Alcohol withdrawal syndrome Qualifiers: Complication of substance-induced condition: uncomplicated Qualified Code(s): F10.230 - Alcohol dependence with withdrawal, uncomplicated Alcohol intoxication Qualifiers: Complication of substance-induced condition: uncomplicated Qualified Code(s): F10.920 - Alcohol use, unspecified with intoxication, uncomplicated - Discharge Information Sepsis Event Note (ED) - Evaluation Sepsis Screening Result: No Definite Risk ED Communication - ED Communication Date/Time Date: 06/16/20 Time Called: 07:06 - Discussed Case With (1) Discussed Case With (1): Admitting Provider Person/s Notified (1): Dr. Redman (Will admit for further evaluation and treatment) - My Orders Last 24 Hours: My Active Orders 06/16/20 05:00 Dextrose 5%-Lactated Ringers 1,000 ml IV ASDIRECTED - Assessment/Plan Last 24 Hours: My Active Orders 06/16/20 05:00 Dextrose 5%-Lactated Ringers 1,000 ml IV ASDIRECTED
[2020-06-16] MEDS ORDERED: Dextrose 5%-Lactated Ringers 1,000 ML IV SCH (05:00)
[2020-06-16] MEDS ORDERED: Sodium Chloride 0.9% 1,000 ML IV ONE (07:34)
[2020-06-16] MEDS ORDERED: hydrALAZINE 20 MG/ML SDV IVPUSH PRN (07:44)
[2020-06-16] MEDS ORDERED: LORazepam 2 MG/ML SDV IV SCH (07:45)
[2020-06-16] MEDS ORDERED: Thiamine 1,000 MG, Magnesium Sulfate 4 GM, Folic Acid 1 MG in Dextrose 5%-0.9% NaCl 1,0... IV SCH (07:45)
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
[2020-06-16] MEDS ORDERED: dexMEDEtomidine in dextrose 5% 400 MCG in Premix Bag 1 BAG IV SCH ×2 (09:15)
[2020-06-16] MEDS ORDERED: Thiamine 1,000 MG, Magnesium Sulfate 4 GM, Folic Acid 1 MG in Dextrose 5%-0.9% NaCl 1,0... IV ONE (10:00)
[2020-06-16] MEDS: Folic Acid 1 MG Tab PO SCH (10:08)
[2020-06-16] MEDS: LORazepam 1 MG Tab PO SCH ×4 (10:13→20:18)
[2020-06-17] MEDS: LORazepam 1 MG Tab PO SCH ×3 (02:12→23:39)
[2020-06-17] MEDS ORDERED: Diazepam 5 MG Tab PO SCH (09:00)
[2020-06-17] MEDS: Folic Acid 1 MG Tab PO SCH (09:01)
[2020-06-17] MEDS: Ondansetron 4 MG/2 ML SDV IVPUSH PRN ×2 (13:56→20:56)
[2020-06-17] MEDS: Diazepam 5 MG Tab PO SCH ×2 (15:32→20:56)
--- NOTE | 2020-06-17 18:51 | PCM.PN ---
- Patient Data Vitals - Most Recent: Last Vital Signs Temp 97.1 F 06/17/20 16:00 Pulse 78 06/17/20 16:00 Resp 18 06/17/20 16:00 BP 117/86 06/17/20 16:00 Pulse Ox 96 06/17/20 16:00 Weight - Most Recent: 65.181 kg I&O - Last 24 Hours: Intake & Output 06/17/20 06/17/20 06/17/20 06:59 14:59 22:59 Intake Total 1 480 560 Output Total 600 650 Balance -599 480 -90 Lab Results Last 24 Hours: Laboratory Results - last 24 hr 06/17/20 06/17/20 Range/Units 05:20 05:21 WBC 5.58 (4.23-9.07) K/mm3 RBC 4.43 L (4.63-6.08) M/mm3 Hgb 14.1 D (13.7-17.5) gm/dl Hct 41.5 (40.1-51.0) % MCV 93.7 H D (79.0-92.2) fl MCH 31.8 (25.7-32.2) pg MCHC 34.0 (32.2-35.5) g/dl RDW Std Deviation 41.3 (35.1-43.9) fL Plt Count 167 D (163-337) K/mm3 MPV 10.3 (9.4-12.3) fl Neut % (Auto) 68.9 H (34.0-67.9) % Lymph % (Auto) 20.8 L (21.8-53.1) % Amelia % (Auto) 7.7 (5.3-12.2) % Eos % (Auto) 2.2 (0.8-7.0) Baso % (Auto) 0.4 (0.1-1.2) % Neut # (Auto) 3.85 (1.78-5.38) K/mm3 Lymph # (Auto) 1.16 L (1.32-3.57) K/mm3 Amelia # (Auto) 0.43 (0.30-0.82) K/mm3 Eos # (Auto) 0.12 (0.04-0.54) K/mm3 Baso # (Auto) 0.02 (0.01-0.08) K/mm3 Sodium 135 L (136-145) mEq/L Potassium 3.1 L (3.5-5.1) mEq/L Chloride 100 (98-107) mEq/L Carbon Dioxide 30 (21-32) mEq/L Anion Gap 8.1 (5-15) BUN 17 (7-18) mg/dL Creatinine 0.8 (0.7-1.3) mg/dL Est Cr Clr Drug Dosing 110.90 mL/min Estimated GFR (MDRD) > 60 (>60) mL/min BUN/Creatinine Ratio 21.3 H (14-18) Glucose 104 (74-106) mg/dL Calcium 8.1 L (8.5-10.1) mg/dL Phosphorus 2.4 L (2.6-4.7) mg/dL Magnesium 2.3 (1.8-2.4) mg/dl Med Orders - Current: Current Medications Diazepam (Valium.) 10 mg PO TID CALI Last Admin: 06/17/20 15:32 Dose: 10 mg Documented by: Folic Acid (Folic Acid) 1 mg PO DAILY CALI Stop: 06/18/20 09:01 Last Admin: 06/17/20 09:01 Dose: 1 mg Documented by: Hydralazine HCl (Apresoline) 10 mg IVPUSH Q2H PRN PRN Reason: Hypertension Dextrose/Lactated Ringer's (Dextrose 5%-Lactated Ringers) 1,000 mls @ 999 mls/hr IV ASDIRECTED CALI Last Admin: 06/16/20 06:20 Dose: 500 mls/hr Documented by: dexMEDEtomidine in dextrose 5% (400 mcg/ Premix) 100 mls @ 0 mls/hr IV TITRATE CALI; Protocol Last Admin: 06/16/20 22:56 Dose: 1.6 mls/hr Documented by: Lorazepam (Ativan) 0 mg IV ASDIRECTED CALI; Protocol Last Admin: 06/16/20 17:02 Dose: 1 mg Documented by: Lorazepam (Ativan) 0 mg PO ASDIRECTED CALI; Protocol Last Admin: 06/17/20 05:44 Dose: 1 mg Documented by: Ondansetron HCl (Zofran) 4 mg IVPUSH Q8H PRN PRN Reason: Nausea Last Admin: 06/17/20 13:56 Dose: 4 mg Documented by: Thiamine HCl (Vitamin B-1) 100 mg PO DAILY [facility] Discontinued Medications Chlordiazepoxide HCl (Librium) 50 mg PO ONETIME ONE Stop: 06/16/20 04:11 Last Admin: 06/16/20 04:29 Dose: 50 mg Documented by: Clonidine HCl (Catapres) 0.1 mg PO ONETIME ONE Stop: 06/16/20 04:10 Last Admin: 06/16/20 04:30 Dose: 0.1 mg Documented by: Diazepam (Valium.) 15 mg PO BID [facility] Last Admin: 06/17/20 09:01 Dose: 15 mg Documented by: Folic Acid (Folic Acid) 1 mg IV ONETIME ONE Stop: 06/16/20 03:54 Last Admin: 06/16/20 06:26 Dose: Not Given Documented by: Sodium Chloride (Normal Saline) 1,000 mls @ 999 mls/hr IV ONETIME ONE Stop: 06/16/20 08:34 Last Admin: 06/16/20 08:05 Dose: 999 mls/hr Documented by: Thiamine HCl 1,000 mg/Magnesium Sulfate 4 gm/ Folic Acid 1 mg/ Dextrose/Sodium Chloride 1,018.2 mls @ 125 mls/hr IV ASDIRECTED [facility] Thiamine HCl 1,000 mg/Magnesium Sulfate 4 gm/ Folic Acid 1 mg/ Dextrose/Sodium Chloride 1,018.2 mls @ 125 mls/hr IV ONETIME ONE Stop: 06/16/20 18:08 Last Admin: 06/16/20 10:14 Dose: 125 mls/hr Documented by: Lorazepam (Ativan) 1 mg IVPUSH ONETIME ONE Stop: 06/16/20 04:09 Last Admin: 06/16/20 04:31 Dose: 1 mg Documented by: Ondansetron HCl (Zofran) Confirm Administered Dose 4 mg .ROUTE .STK-MED ONE Stop: 06/16/20 03:42 Last Admin: 06/16/20 03:53 Dose: 4 mg Documented by: Thiamine HCl (Vitamin B-1) 100 mg IVPUSH ONETIME ONE Stop: 06/16/20 03:54 Last Admin: 06/16/20 04:30 Dose: 100 mg Documented by: Sepsis Event Note - Evaluation Sepsis Screening Result: No Definite Risk - Focused Exam Vital Signs: Vital Signs Temp Pulse Resp BP Pulse Ox 06/17/20 16:00 97.1 F 78 18 117/86 96 06/17/20 12:00 98.1 F 16 131/92 H 97 06/17/20 08:00 97.2 F 16 122/84 98 - My Orders Last 24 Hours: My Active Orders 06/17/20 12:58 Ondansetron [Zofran] 4 mg IVPUSH Q8H PRN 06/17/20 15:00 diazePAM [Valium.] 10 mg PO TID 06/17/20 15:26 Patient Status [ADT] Routine 06/18/20 09:00 Thiamine [Vitamin B-1] 100 mg PO DAILY
[2020-06-18] MEDS: LORazepam 1 MG Tab PO SCH ×2 (00:51→04:42)
[2020-06-18] MEDS: Folic Acid 1 MG Tab PO SCH (08:47)
[2020-06-18] MEDS: Diazepam 5 MG Tab PO SCH (08:47)
[2020-06-18] MEDS ORDERED: Thiamine 100 MG Tab PO SCH (09:00)
[2020-06-18] MEDS ORDERED: Potassium Chloride 20 MEQ Tab.ER PO SCH (11:00)
[2020-06-18] MEDS ORDERED: Magnesium Oxide 400 MG Tab PO ONE (11:00)
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
== END 2020-06-18 11:34 | disposition left against medical advice (07) | DRG 894 ==
LOC: JD.ED 03:36 → JD.ICU 07:35 → JD.MS 06-17 15:26
PROVIDERS: ADMIT Internal Medicine; ATTEND Internal Medicine
DX: F10.239 Alcohol dependence with withdrawal, unspecified (principal); E87.1 Hypo-osmolality and hyponatremia; F32.9 Major depressive disorder, single episode, unspecified; E87.6 Hypokalemia; E83.42 Hypomagnesemia; F42.9 Obsessive-compulsive disorder, unspecified; E86.0 Dehydration; D72.829 Elevated white blood cell count, unspecified; Z91.030 Bee allergy status; Z88.0 Allergy status to penicillin; Z88.1 Allergy status to other antibiotic agents; Z91.013 Allergy to seafood; K21.9 Gastro-esophageal reflux disease without esophagitis
CPT/HCPCS: 36415; 51702; 80048; 80053; 80306; 80307; 81001; 83735; 84100; 85025; 96361; 96374; 96375; 99284; 99285-25; A9270-GY; J2060; J2405; J3411; J3475; J7030; J7042; J7121; U0002

== ENCOUNTER 2020-08-01 23:21 | Emergency (ER) | payer MEDICAID ==
[2020-08-02] MEDS ORDERED: Lactated Ringers 1,000 ML IV ONE ×2 (00:01)
[2020-08-02] MEDS ORDERED: Ondansetron 4 MG/2 ML SDV IVPUSH ONE ×3 (00:01→08:03)
--- NOTE | 2020-08-02 00:40 | EDM.PDOC ---
ED HPI GENERAL MEDICAL PROBLEM - General Chief Complaint: Drug or Alcohol Abuse Stated Complaint: KENIA AMB Time Seen by Provider: 08/01/20 23:50 - History of Present Illness INITIAL COMMENTS - FREE TEXT/NARRATIVE: 45-year-old male presents the emergency room with "alcohol detox". He was brought in by EMS. Patient has been drinking heavily. He has a history of binge drinking. When asked how long he has been drinking he states about 2 weeks. He is not sure how long he was sober before this as he has a history of recurrent binge drinking. The patient has not never had problems with seizures or delirium tremens while trying to quit. Yesterday he decided to slow down. But he is not sure how much he said to drink today. Abdominal Pain Score (Numeric/FACES): 10 - Related Data Allergies Allergy/AdvReac Type Severity Reaction Status Date / Time bee venom protein (honey bee) Allergy Intermediate Anaphylactic Verified 08/01/20 23:22 Shock Penicillins Allergy Intermediate Hives Verified 08/01/20 23:22 amoxicillin Allergy Cannot Verified 08/01/20 23:22 Remember shellfish derived Allergy Cannot Verified 08/01/20 23:22 Remember bee Allergy Anaphylactic Uncoded 08/01/20 23:22 Shock Home Meds: Home Meds Folic Acid 1 mg PO DAILY 06/16/20 [History] LORazepam [Ativan] 1 mg PO Q8H #6 tab 08/02/20 [Rx] Ondansetron [Zofran Odt] 8 mg PO Q6H PRN #8 tab.rapdis 08/02/20 [Rx] Past Medical History - Past Health History Medical/Surgical History: Denies Medical/Surgical History Respiratory History: Reports: None Gastrointestinal History: Reports: GERD Musculoskeletal History: Reports: Other (See Below) Other Musculoskeletal History: Shoulder surgery Psychiatric History: Reports: Addiction Other Psychiatric History: Alcohol use Immunologic History: Reports: None Dermatologic History: Reports: None - Infectious Disease History Infectious Disease History: Reports: None - Past Surgical History GI Surgical History: Reports: Other (See Below) Musculoskeletal Surgical History: Reports: Shoulder Surgery Social & Family History - Family History Family Medical History: Unobtainable Cardiac: Reports: High Cholesterol, NC, Other (See Below) Other Cardiac Family History: mother had a stroke - Tobacco Use Tobacco Use Status *Q: Never Tobacco User - Caffeine Use Caffeine Use: Reports: Coffee Other Caffeine Use: unable to answer when asked. - Alcohol Use Days Per Week of Alcohol Use: 7 Number of Drinks Per Day: 22 Total Drinks Per Week: 154 - Recreational Drug Use Recreational Drug Use: No - Living Situation & Occupation Living situation: Reports: , Alone Occupation: Unemployed ED ROS GENERAL - Review of Systems Review Of Systems: See Below Constitutional: Reports: No Symptoms HEENT: Reports: No Symptoms Respiratory: Reports: No Symptoms Cardiovascular: Reports: No Symptoms GI/Abdominal: Reports: No Symptoms : Reports: No Symptoms Musculoskeletal: Reports: No Symptoms Skin: Reports: No Symptoms Neurological: Reports: Tremors Psychiatric: Reports: Anxiety ED EXAM, GENERAL - Physical Exam Exam: See Below Exam Limited By: No Limitations General Appearance: Alert, No Apparent Distress, Other (Patient is alert and cooperative he has this shaking in his upper extremities but calm right down when he puts his arms on his legs or supports him in any other way. It is a course irregular tremor and at times when he is distracted he does not do it.) Eye Exam: Bilateral Eye: Normal Inspection Ears: Normal External Exam, Normal Canal, Hearing Grossly Normal, Normal TMs Nose: Normal Inspection, Normal Mucosa, No Blood Throat/Mouth: Normal Inspection, Normal Lips, Normal Teeth, Normal Gums, Normal Oropharynx, Normal Voice, No Airway Compromise Head: Atraumatic, Normocephalic Neck: Normal Inspection, Supple, Non-Tender, Full Range of Motion. No: Lymphadenopathy (L), Lymphadenopathy (R) Respiratory/Chest: No Respiratory Distress, Lungs Clear, Normal Breath Sounds Cardiovascular: Regular Rate, Rhythm, No Edema, No Murmur GI/Abdominal: Normal Bowel Sounds, Soft, Other (With palpation he has some discomfort in the epigastric area.). No: Guarding, Rigid, Rebound Back Exam: Normal Inspection, Full Range of Motion. No: CVA Tenderness (L), CVA Tenderness (R) Extremities: Normal Inspection, No Pedal Edema Neurological: Alert, Oriented, Normal Cognition (Albeit I believe he is intoxicated) Psychiatric: Anxious Skin Exam: Warm, Dry, Intact Course - Vital Signs Last Recorded V/S: Last Vital Signs Temp 36.3 C 08/01/20 23:22 Pulse 127 H 08/01/20 23:22 Resp 20 08/01/20 23:22 BP 147/102 H 08/01/20 23:22 Pulse Ox 94 L 08/01/20 23:22 - Orders/Labs/Meds Labs: Laboratory Tests 08/02/20 08/02/20 08/02/20 Range/Units 00:15 00:15 00:15 WBC 3.93 L (4.23-9.07) K/mm3 RBC 5.38 (4.63-6.08) M/mm3 Hgb 16.6 D (13.7-17.5) gm/dl Hct 48.9 (40.1-51.0) % MCV 90.9 (79.0-92.2) fl MCH 30.9 (25.7-32.2) pg MCHC 33.9 (32.2-35.5) g/dl RDW Std Deviation 40.3 (35.1-43.9) fL Plt Count 193 (163-337) K/mm3 MPV 10.3 (9.4-12.3) fl Neut % (Auto) 67.8 (34.0-67.9) % Lymph % (Auto) 26.0 (21.8-53.1) % [place] % (Auto) 4.1 L (5.3-12.2) % Eos % (Auto) 0.3 L (0.8-7.0) Baso % (Auto) 1.5 H (0.1-1.2) % Neut # (Auto) 2.67 (1.78-5.38) K/mm3 Lymph # (Auto) 1.02 L (1.32-3.57) K/mm3 [place] # (Auto) 0.16 L (0.30-0.82) K/mm3 Eos # (Auto) 0.01 L (0.04-0.54) K/mm3 Baso # (Auto) 0.06 (0.01-0.08) K/mm3 PT 10.3 (9.7-11.7) SECONDS INR 0.96 Sodium 138 (136-145) mEq/L Potassium 4.1 (3.5-5.1) mEq/L Chloride 94 L (98-107) mEq/L Carbon Dioxide 23 (21-32) mEq/L Anion Gap 25.1 H (5-15) BUN 26 H (7-18) mg/dL Creatinine 1.1 (0.7-1.3) mg/dL Est Cr Clr Drug Dosing 87.77 mL/min Estimated GFR (MDRD) > 60 (>60) mL/min BUN/Creatinine Ratio 23.6 H (14-18) Glucose 158 H (74-106) mg/dL Calcium 8.3 L (8.5-10.1) mg/dL Magnesium 2.1 (1.8-2.4) mg/dl Total Bilirubin 2.4 H (0.2-1.0) mg/dL GGT 44 (15-85) U/L AST 218 H (15-37) U/L ALT 170 H (16-63) U/L Alkaline Phosphatase 109 (46-116) U/L Total Protein 8.0 (6.4-8.2) g/dl Albumin 4.3 (3.4-5.0) g/dl Globulin 3.7 gm/dL Albumin/Globulin Ratio 1.2 (1-2) Urine Color (Yellow) Urine Appearance (Clear) Urine pH (5.0-8.0) Ur Specific [place] (1.005-1.030) Urine Protein (Negative) Urine Glucose (UA) (Negative) Urine Ketones (Negative) Urine Occult Blood (Negative) Urine Nitrite (Negative) Urine Bilirubin (Negative) Urine Urobilinogen (0.2-1.0) Ur Leukocyte Esterase (Negative) U Hyaline Cast (Auto) (0-5) /lpf Urine RBC (0-5) /hpf Urine WBC (0-5) /hpf Ur Squamous Epith Cells (0-5) /hpf Urine Bacteria (FEW) /hpf Urine Mucus (FEW) /hpf Urine Opiates Screen (ZPRGKC=933) Ur Buprenorphine Scrn (CUTOFF=10) Ur Oxycodone Screen (OLJ0PQ=171) Urine Methadone Screen (DMY9SD=019) Ur Propoxyphene Screen (CWEZPM=401) Ur Barbiturates Screen (UCEAFZ=220) Ur Tricyclics Screen (NNKMTG=146) Ur Phencyclidine Scrn (CUTOFF=25) Ur Amphetamine Screen (ZAHCPZ=092) U Methamphetamines Scrn (QXSLIZ=620) U Benzodiazepines Scrn (PETXAL=646) U Cocaine Metab Screen (IGVMUI=388) U Marijuana (THC) Screen (CUTOFF=50) Ethyl Alcohol 0.34 (0.00) gm% 08/02/20 08/02/20 Range/Units 00:49 00:49 WBC (4.23-9.07) K/mm3 RBC (4.63-6.08) M/mm3 Hgb (13.7-17.5) gm/dl Hct (40.1-51.0) % MCV (79.0-92.2) fl MCH (25.7-32.2) pg MCHC (32.2-35.5) g/dl RDW Std Deviation (35.1-43.9) fL Plt Count (163-337) K/mm3 MPV (9.4-12.3) fl Neut % (Auto) (34.0-67.9) % Lymph % (Auto) (21.8-53.1) % [place] % (Auto) (5.3-12.2) % Eos % (Auto) (0.8-7.0) Baso % (Auto) (0.1-1.2) % Neut # (Auto) (1.78-5.38) K/mm3 Lymph # (Auto) (1.32-3.57) K/mm3 [place] # (Auto) (0.30-0.82) K/mm3 Eos # (Auto) (0.04-0.54) K/mm3 Baso # (Auto) (0.01-0.08) K/mm3 PT (9.7-11.7) SECONDS INR Sodium (136-145) mEq/L Potassium (3.5-5.1) mEq/L Chloride (98-107) mEq/L Carbon Dioxide (21-32) mEq/L Anion Gap (5-15) BUN (7-18) mg/dL Creatinine (0.7-1.3) mg/dL Est Cr Clr Drug Dosing mL/min Estimated GFR (MDRD) (>60) mL/min BUN/Creatinine Ratio (14-18) Glucose (74-106) mg/dL Calcium (8.5-10.1) mg/dL Magnesium (1.8-2.4) mg/dl Total Bilirubin (0.2-1.0) mg/dL GGT (15-85) U/L AST (15-37) U/L ALT (16-63) U/L Alkaline Phosphatase (46-116) U/L Total Protein (6.4-8.2) g/dl Albumin (3.4-5.0) g/dl Globulin gm/dL Albumin/Globulin Ratio (1-2) Urine Color Lizbeth H (Yellow) Urine Appearance Clear (Clear) Urine pH 6.0 (5.0-8.0) Ur Specific [place] > or = 1.030 (1.005-1.030) Urine Protein 2+ H (Negative) Urine Glucose (UA) Negative (Negative) Urine Ketones 1+ H (Negative) Urine Occult Blood Negative (Negative) Urine Nitrite Negative (Negative) Urine Bilirubin 1+ H (Negative) Urine Urobilinogen 1.0 (0.2-1.0) Ur Leukocyte Esterase Negative (Negative) U Hyaline Cast (Auto) 0-5 (0-5) /lpf Urine RBC 0-5 (0-5) /hpf Urine WBC 0-5 (0-5) /hpf Ur Squamous Epith Cells 0-5 (0-5) /hpf Urine Bacteria Few (FEW) /hpf Urine Mucus Moderate H (FEW) /hpf Urine Opiates Screen Negative (WBTTVN=634) Ur Buprenorphine Scrn Negative (CUTOFF=10) Ur Oxycodone Screen Negative (RBV7AV=287) Urine Methadone Screen Negative (EPU2EA=794) Ur Propoxyphene Screen Negative (LUOUCP=838) Ur Barbiturates Screen Negative (CCJROP=624) Ur Tricyclics Screen Negative (AOYYPT=886) Ur Phencyclidine Scrn Negative (CUTOFF=25) Ur Amphetamine Screen Negative (BRNMEV=325) U Methamphetamines Scrn Negative (YDQMEF=557) U Benzodiazepines Scrn Negative (YHNRQP=266) U Cocaine Metab Screen Negative (NEXDTN=098) U Marijuana (THC) Screen Negative (CUTOFF=50) Ethyl Alcohol (0.00) gm% Meds: Medications Discontinued Medications Generic Name Dose Route Start Last Admin Trade Name Freq PRN Reason Stop Dose Admin Lactated Ringer's 1,000 mls @ 999 mls/hr 08/02/20 00:00 08/02/20 00:07 Ringers, Lactated IV 08/02/20 01:00 999 mls/hr .BOLUS ONE Administration Lactated Ringer's 1,000 mls @ 999 mls/hr 08/02/20 00:01 08/02/20 01:50 Ringers, Lactated IV 08/02/20 01:01 999 mls/hr .BOLUS ONE Administration Lorazepam 1 mg 08/02/20 00:41 08/02/20 01:10 Ativan IVPUSH 08/02/20 00:42 1 mg ONETIME ONE Administration Ondansetron HCl 4 mg 08/02/20 00:01 08/02/20 00:07 Zofran IVPUSH 08/02/20 00:02 4 mg ONETIME ONE Administration Ondansetron HCl 4 mg 08/02/20 00:01 08/02/20 00:37 Zofran IVPUSH 08/02/20 00:02 4 mg ONETIME ONE Administration - Re-Assessments/Exams Free Text/Narrative Re-Assessment/Exam: 08/02/20 01:11 Patient is significantly dehydrated his blood alcohol is 0.34. We will give several liters of fluid 08/02/20 08:00 Received couple liters of fluid and his pulse came right down patient is feeling better he still little jittery. We will discharge with a few Ativan and the patient agrees to follow-up with [facility]. Patient will also be discharged with some Zofran 8 mg tablets to use as needed Departure - Departure Time of Disposition: 08:05 Disposition: Home, Self-Care 01 Clinical Impression: Alcohol consumption binge drinking - Discharge Information Referrals: PCP,None [Primary Care Provider] - Forms: ED Department Discharge Additional Instructions: Return to the emergency room with any questions problems or worsening symptoms. Follow-up in the hospital clinic on Thursday for recheck. [phone] I have given you prescription for Ativan 1 mg take 1 every 8 hours only if needed for anxiety. I have also given you a prescription for ondansetron, this is for nausea and vomiting take 1 every 6-8 hours as needed. Stop drinking!. Follow-up with [facility] as we discussed Sepsis Event Note (ED) - Evaluation Sepsis Screening Result: No Definite Risk - Focused Exam Vital Signs: Vital Signs Temp Pulse Resp BP Pulse Ox 08/01/20 23:22 36.3 C 127 H 20 147/102 H 94 L
[2020-08-02] MEDS ORDERED: LORazepam 2 MG/ML SDV IVPUSH ONE (00:41)
== END 2020-08-02 09:00 | disposition home or self-care (01) ==
LOC: JD.ED 23:21
DX: F10.20 Alcohol dependence, uncomplicated (principal); E86.0 Dehydration; Z88.1 Allergy status to other antibiotic agents; Z88.0 Allergy status to penicillin; Z91.030 Bee allergy status; Z91.013 Allergy to seafood; Y90.0 Blood alcohol level of less than 20 mg/100 ml
CPT/HCPCS: 36415; 80053; 80306; 80307; 81001; 82977; 83735; 85025; 85610; 96374; 96375; 96376; 99284; J2060; J2405; J7120

== ENCOUNTER 2020-09-13 22:48 | Emergency (ER) | payer MEDICAID ==
[2020-09-13] MEDS ORDERED: Sodium Chloride 0.9% 10 ML Syringe FLUSH PRN (22:54)
[2020-09-13] MEDS ORDERED: Sodium Chloride 0.9% 1,000 ML IV SCH (23:00)
[2020-09-13] MEDS ORDERED: Acetaminophen 325 MG Tab PO ONE (23:47)
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
--- NOTE | 2020-09-17 09:47 | CT ---
PROCEDURE INFORMATION: Exam: CT Cervical Spine Without Contrast Exam date and time: 09/13/2020 11:00 PM Age: 45 years old Clinical indication: Injury or trauma; Blunt trauma and concussion/head injury; Patient HX: Dizzy, fall, hit head, nausea TECHNIQUE: Imaging protocol: Computed tomography images of the cervical spine without contrast. Radiation optimization: All CT scans at this facility use at least one of these dose optimization techniques: automated exposure control; mA and/or kV adjustment per patient size (includes targeted exams where dose is matched to clinical indication); or iterative reconstruction. COMPARISON: No relevant prior studies available. FINDINGS: Bones/joints: No acute fracture. Normal alignment. Discs/Spinal canal/Neural foramina: No significant disc protrusion. No severe spinal canal stenosis. No significant neural foraminal narrowing. Soft tissues: Unremarkable. Lungs: Patchy areas of consolidation in the upper lobes bilaterally with areas of bronchiectasis, incompletely assessed. Consider chest CT for further assessment.. IMPRESSION: 1. No acute cervical spine abnormality. 2. Patchy areas opacification in the upper lobes bilaterally, consider. Chest CT for more complete assessment of the lungs. Thank you for allowing us to participate in the care of your patient. Dictated and Authenticated by: Ruby Barrera MD 09/14/2020 12:30 AM Central Time ([place] & [place]) [place]
--- NOTE | 2020-09-17 09:48 | CT ---
PROCEDURE INFORMATION: Exam: CT Head Without Contrast Exam date and time: 09/13/2020 11:00 PM Age: 45 years old Clinical indication: Pain and injury or trauma; Blunt trauma (contusions or hematomas) and concussion/head injury; Consciousness not specified; Headache; Post-traumatic; Injury details: Dizzy, fall, hit head, nausea TECHNIQUE: Imaging protocol: Computed tomography of the head without contrast. COMPARISON: No relevant prior studies available. FINDINGS: Brain: Normal. No hemorrhage. Unremarkable white matter. No mass effect. Cerebral ventricles: No ventriculomegaly. Bones/joints: Unremarkable. No acute fracture. Paranasal sinuses: Visualized sinuses are unremarkable. No fluid levels. Mastoid air cells: Visualized mastoid air cells are well aerated. Soft tissues: Unremarkable. IMPRESSION: No acute intracranial abnormality. Thank you for allowing us to participate in the care of your patient. Dictated and Authenticated by: Ruby Barrera MD 09/14/2020 12:27 AM Central Time ([place] & [place]) [place]
== END 2020-09-14 01:04 | disposition home or self-care (01) ==
LOC: JD.ED 22:48
DX: S00.81XA Abrasion of other part of head, initial encounter (principal); F10.129 Alcohol abuse with intoxication, unspecified; Y90.8 Blood alcohol level of 240 mg/100 ml or more; F17.210 Nicotine dependence, cigarettes, uncomplicated; Z91.030 Bee allergy status; Z88.0 Allergy status to penicillin; Z88.1 Allergy status to other antibiotic agents; Z91.013 Allergy to seafood; W22.8XXA Striking against or struck by other objects, initial encounter
CPT/HCPCS: 36415; 70450; 72125; 80053; 80307; 83735; 85025; 99285; A9270; J7030; 99284

== ENCOUNTER 2020-09-22 17:49 | Emergency (ER) | payer MEDICAID ==
[2020-09-22] MEDS ORDERED: Ondansetron 4 MG/2 ML SDV IVPUSH ONE (18:16)
[2020-09-22] MEDS ORDERED: Ondansetron 4 MG/2 ML SDV ONE (18:18)
[2020-09-22] MEDS ORDERED: Sodium Chloride 0.9% 1,000 ML ONE (18:18)
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
[2020-09-22] MEDS: Sodium Chloride 0.9% 1,000 ML IV ONE ×2 (18:29→18:37)
== END 2020-09-22 21:05 | disposition home or self-care (01) ==
LOC: JD.ED 17:49
DX: F10.20 Alcohol dependence, uncomplicated (principal); E80.6 Other disorders of bilirubin metabolism; R74.01 Elevation of levels of liver transaminase levels; F17.210 Nicotine dependence, cigarettes, uncomplicated; R73.9 Hyperglycemia, unspecified; Z91.030 Bee allergy status; Z88.0 Allergy status to penicillin; Z88.1 Allergy status to other antibiotic agents; Z91.013 Allergy to seafood; Y90.8 Blood alcohol level of 240 mg/100 ml or more
CPT/HCPCS: 36415; 80053; 80306; 80307; 83690; 83735; 85025; 96374; 99284; J2405; J7030

== ENCOUNTER 2020-09-22 23:05 | Emergency (ER) | payer MEDICAID ==
[2020-09-22] MEDS ORDERED: Ondansetron 4 MG/2 ML SDV IVPUSH ONE (23:06)
[2020-09-22] MEDS ORDERED: Sodium Chloride 0.9% 1,000 ML IV SCH (23:15)
[2020-09-22] MEDS ORDERED: cloNIDine 0.1 MG Tab PO ONE (23:23)
[2020-09-22] MEDS ORDERED: hydrOXYzine HCl 25 MG Tab PO ONE (23:24)
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
[2020-09-23] MEDS ORDERED: hydrOXYzine HCl 25 MG Tab PO ONE (01:53)
[2020-09-23] MEDS ORDERED: Ondansetron 4 MG Tab.DIS PO ONE (02:13)
[2020-09-23] MEDS ORDERED: Ondansetron 4 MG Tab.DIS ONE (02:16)
== END 2020-09-23 02:05 | disposition home or self-care (01) ==
LOC: JD.ED 23:05
DX: F10.20 Alcohol dependence, uncomplicated (principal); R25.1 Tremor, unspecified; F17.210 Nicotine dependence, cigarettes, uncomplicated; Y90.0 Blood alcohol level of less than 20 mg/100 ml; Z91.030 Bee allergy status; Z88.0 Allergy status to penicillin; Z88.1 Allergy status to other antibiotic agents; Z91.013 Allergy to seafood
CPT/HCPCS: 36415; 80307; 96374; 99284; A9270; J2405; J7030

== ENCOUNTER 2020-09-23 07:04 | Emergency (ER) | payer MEDICAID ==
--- NOTE | 2020-09-23 07:18 | EDM.PDOC ---
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 09/23/20 07:30 Dextrose 5%-Lactated Ringers 1,000 ml IV ASDIRECTED 09/23/20 08:15 Potassium Chloride [KCl 10 MEQ in Water 100 ML] 10 meq Premix Bag 1 bag IV ASDIRECTED 09/23/20 08:45 Lactated Ringers [Ringers, Lactated] 1,000 ml IV ASDIRECTED 09/23/20 09:00 Potassium Chloride [KCl 10 MEQ in Water 100 ML] 10 meq Premix Bag 1 bag IV ASDIRECTED
[2020-09-23] MEDS ORDERED: Thiamine 200 MG/2 ML MDV IVPUSH ONE (07:22)
[2020-09-23] MEDS ORDERED: LORazepam 2 MG/ML SDV IV ONE (07:23)
[2020-09-23] MEDS ORDERED: Metoclopramide 10 MG/2 ML SDV IVPUSH ONE (07:23)
[2020-09-23] MEDS ORDERED: Acetaminophen 325 MG Tab PO ONE (07:24)
[2020-09-23] MEDS ORDERED: Dextrose 5%-Lactated Ringers 1,000 ML IV SCH (07:30)
[2020-09-23] MEDS ORDERED: Potassium Chloride 10 MEQ in Premix Bag 1 BAG IV SCH ×2 (08:15→09:00)
[2020-09-23] MEDS ORDERED: Lactated Ringers 1,000 ML IV SCH (08:45)
[2020-09-23] MEDS ORDERED: Magnesium Oxide 400 MG Tab PO ONE (09:23)
[2020-09-23] MEDS ORDERED: Dexamethasone 4 MG/ML SDV IVPUSH ONE (12:56)
--- NOTE | 2020-09-23 13:00 | CR ---
Chest: Portable view of the chest was obtained. Comparison: Previous chest x-ray of 12/14/19. Findings: Lungs: No definite acute parenchymal change is seen within either lung. Heart size and mediastinum: Heart size and mediastinum are normal with no mediastinal adenopathy. Osseous: No acute bony abnormality is seen. Impression: 1. Nothing acute is appreciated on frontal chest x-ray. 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
== END 2020-09-23 13:15 | disposition home or self-care (01) ==
LOC: JD.ED 07:04
DX: F10.230 Alcohol dependence with withdrawal, uncomplicated (principal); U07.1 COVID-19; Z91.030 Bee allergy status; Z88.0 Allergy status to penicillin; Z88.1 Allergy status to other antibiotic agents; Z91.013 Allergy to seafood
CPT/HCPCS: 36415; 71045; 80053; 80306; 80307; 82977; 83690; 83735; 85025; 85610; 85730; 86140; 87635; 96365; 96366; 96375; 99285; A9270; J1100; J2060; J2765; J3411; J3480; J7120; J7121; 99284; U0002

== ENCOUNTER 2021-01-21 18:17 | Emergency (ER) | payer MEDICAID, OTHER ==
[2021-01-21] MEDS ORDERED: Thiamine 100 MG Tab PO ONE (18:39)
[2021-01-21] MEDS ORDERED: Metoclopramide 10 MG/2 ML SDV IVPUSH ONE (18:39)
[2021-01-21] MEDS ORDERED: Sodium Chloride 0.9% 10 ML Syringe FLUSH PRN (18:39)
[2021-01-21] MEDS ORDERED: Folic Acid 1 MG Tab PO ONE (18:39)
[2021-01-21] MEDS ORDERED: LORazepam 2 MG/ML SDV IVPUSH ONE (18:39)
[2021-01-21] MEDS ORDERED: Sodium Chloride 0.9% 1,000 ML IV ONE ×2 (18:39→19:56)
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
[2021-01-21 19:36] LABS: CORONAVIRUS COVID-19 NAA NEGATIVE (NEGATIVE)
== END 2021-01-21 20:33 ==
LOC: JD.ED 18:17
DX: F10.230 Alcohol dependence with withdrawal, uncomplicated (principal); R74.8 Abnormal levels of other serum enzymes; Z20.822 Contact with and (suspected) exposure to COVID-19; Z91.030 Bee allergy status; Z88.0 Allergy status to penicillin; Z91.013 Allergy to seafood; Z72.0 Tobacco use; Y90.6 Blood alcohol level of 120-199 mg/100 ml
CPT/HCPCS: 0240U; 36415; 80053; 80306; 80307; 83690; 83735; 85025; 85610; 96374; 96375; 99285; A9270; J2060; J2765; J7030; 99284

== ENCOUNTER 2021-02-16 09:25 | Emergency (ER) | payer MEDICAID ==
[2021-02-16] MEDS ORDERED: Sodium Chloride 0.9% 1,000 ML IV SCH (09:45)
[2021-02-16] MEDS ORDERED: Metoclopramide 10 MG/2 ML SDV IVPUSH ONE (09:45)
[2021-02-16] MEDS ORDERED: Sodium Chloride 0.9% 10 ML Syringe FLUSH PRN (09:45)
[2021-02-16] MEDS ORDERED: LORazepam 2 MG/ML SDV IVPUSH ONE ×3 (09:46→11:53)
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
[2021-02-16] MEDS ORDERED: Lactated Ringers 1,000 ML IV ONE (10:52)
[2021-02-16] MEDS ORDERED: Ondansetron 4 MG/2 ML SDV IVPUSH ONE (12:25)
== END 2021-02-16 12:55 | disposition home or self-care (01) ==
LOC: JD.ED 09:25
DX: F10.239 Alcohol dependence with withdrawal, unspecified (principal); D69.6 Thrombocytopenia, unspecified; Y90.0 Blood alcohol level of less than 20 mg/100 ml; Z87.891 Personal history of nicotine dependence; Z88.0 Allergy status to penicillin; Z91.030 Bee allergy status; Z91.013 Allergy to seafood
CPT/HCPCS: 36415; 80053; 80306; 80307; 83735; 84484; 85025; 96374; 96375; 96376; 99285; J2060; J2405; J2765; J7030; J7120; 99284

== ENCOUNTER 2021-04-04 17:58 | Emergency (ER) | payer MEDICAID ==
[2021-04-04] MEDS ORDERED: LORazepam 2 MG/ML SDV IVPUSH ONE (18:04)
[2021-04-04] MEDS ORDERED: Metoclopramide 10 MG/2 ML SDV IVPUSH ONE (18:04)
[2021-04-04] MEDS ORDERED: Thiamine 200 MG/2 ML MDV IVPUSH ONE (18:10)
--- NOTE | 2021-04-04 18:11 | EDM.PDOCBH ---
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 Propoxyphene Screen (GRSXGZ=352) Ur Barbiturates Screen (GHNHSF=498) Ur Tricyclics Screen (ZNGRXW=112) Ur Phencyclidine Scrn (CUTOFF=25) Ur Amphetamine Screen (GRBKNN=987) U Methamphetamines Scrn (DZQXVB=601) U Benzodiazepines Scrn (DPVWIL=801) U Cocaine Metab Screen (ALGKOA=910) U Marijuana (THC) Screen (CUTOFF=50) Ethyl Alcohol (0.00) gm% Ketones (0.0-0.3) mM SARS-CoV-2 RNA (BRIDGET) (NEGATIVE) Blood Type Gel Antibody Screen Medications Discontinued Medications Generic Name Dose Route Start Last Admin Trade Name Freq PRN Reason Stop Dose Admin Dextrose/Lactated Ringer's 1,000 mls @ 999 mls/hr 04/04/21 18:15 04/04/21 18:24 Dextrose 5%-Lactated Ringers IV 999 mls/hr ASDIRECTED CALI Administration Dextrose/Lactated Ringer's 1,000 mls @ 999 mls/hr 04/04/21 19:45 04/04/21 20:55 Dextrose 5%-Lactated Ringers IV 999 mls/hr ASDIRECTED CALI Administration Dextrose/Lactated Ringer's 1,000 mls @ 999 mls/hr 04/04/21 19:45 Dextrose 5%-Lactated Ringers IV 04/04/21 20:46 ASDIRECTED CALI Lactated Ringer's 1,000 mls @ 500 mls/hr 04/04/21 22:00 04/04/21 21:57 Ringers, Lactated IV 500 mls/hr ASDIRECTED CALI Administration Lorazepam 1 mg 04/04/21 18:04 04/04/21 18:25 Lorazepam 2 Mg/Ml Sdv IVPUSH 04/04/21 18:05 1 mg ONETIME ONE Administration Lorazepam 1 mg 04/04/21 21:51 04/04/21 21:58 Lorazepam 2 Mg/Ml Sdv IVPUSH 04/04/21 21:52 1 mg ONETIME STA Administration Lorazepam 1 mg 04/05/21 03:34 04/05/21 03:40 Lorazepam 2 Mg/Ml Sdv IVPUSH 04/05/21 03:35 1 mg ONETIME STA Administration Metoclopramide HCl 7.5 mg 04/04/21 18:04 04/04/21 18:24 Metoclopramide 10 Mg/2 Ml Sdv IVPUSH 04/04/21 18:05 7.5 mg ONETIME ONE Administration Ondansetron HCl 4 mg 04/05/21 03:34 04/05/21 03:40 Ondansetron 4 Mg/2 Ml Sdv IVPUSH 04/05/21 03:35 4 mg ONETIME ONE Administration Pantoprazole Sodium 40 mg 04/04/21 18:13 04/04/21 18:27 Pantoprazole 40 Mg Vial IVPUSH 04/04/21 18:14 40 mg ONETIME ONE Administration Thiamine HCl 200 mg 04/04/21 18:10 04/04/21 18:26 Thiamine 200 Mg/2 Ml Mdv IVPUSH 04/04/21 18:11 200 mg ONETIME ONE Administration Re-Assessment/Re-Exam: 45-year-old male who is known to be a chronic alcoholic and usually drinks black velvet whiskey on a daily basis presents to the ED per [facility]. He reports he has had intractable nausea and vomiting since 0700 hrs. yesterday morning. Nothing has stayed down. Emesis is dark brown in color without any debby blood evident. He has no known history of cirrhosis of liver, pancreatitis or esophageal varices. Patient presents in early stages of alcohol withdrawal. He states his last drink was approximately 30 hours ago. He is extremely tremulous. He is tachycardic at 136/min. He is tachypneic at 20 to 24/min suspect hyperventilation secondary to metabolic acidosis. He has lost some weight since I have last seen him. He is pallid in color possibly due to vagal effect versus hematemesis. Plan D5 Ringer's lactate at open. Reglan 7.5 mg IV with Ativan 1 mg IV, thiamine 200 mg IV. Routine labs to be collected including a serum ethanol level magnesium and coags. Lipase as well. He is very tender to palpation epigastrium and right upper quadrant of the abdomen with guarding. 1 view chest x-ray to be done to make sure there is no free air from possible perforation of duodenum or stomach. COVID-19 screen to be done. At this time our hospital is on diversion. It is my understanding that [facility] and [facility] are also on diversion. Patient is going to need to be hospitalized due to his current alcohol withdrawal state and intractable nausea and vomiting and dehydration. We will start looking elsewhere for beds such as [place] which has an alcohol treatment center. It is likely the patient will be staying in the emergency room per observational status for treatment. Portable chest x-ray reveals marked hyperinflation of lung bearden. Lung parenchyma are clear. No pneumothorax. Cardiac silhouette is normal. Mediastinum is normal. Re-Assessment/Re-Exam Date: 04/04/21 (19:00: White count is 11.45. The auto differential shows 88.1% neutrophils. Hemoglobin is 15.5 with hematocrit of 44.5. MCV is elevated at 94.3. Platelet count is normal at 313,000. PT is 9.9 with an INR of less than 0.93. PTT is 21.4. Sodium 135 slightly low. Potassium slightly low at 3.4. Chloride low at 87. Bicarb 20 slightly low. Anion gap is 31.4. BUN is 28 with a creatinine of 1.3 and a GFR greater than 60. BUN/creatinine ratio is 21.5. Leukos is 149. Calcium is 9.6. Magnesium is 1.8. Total bilirubin is elevated at 3.7 with an AST of 72 and an ALT of 55. Alkaline phosphatase is 88. C-reactive protein is less than 0.2. Total protein is 8.2 with an albumin fraction of 4.4. Lipase is 156. Blood alcohol at present is 0.11 g%.) Re-Assessment/Re-Exam Time: 19:20 (Lactic acid is markedly elevated at 14.2. Serum ketones are elevated at 0.80. Case discussed with Dr. Banerjee as it is change of shift. Patient will likely have to stay in the emergency room overnight for observation status to correct the severe metabolic acidosis and lactic acidosis. )
[2021-04-04] MEDS ORDERED: Pantoprazole 40 MG Vial IVPUSH ONE (18:13)
[2021-04-04] MEDS ORDERED: Dextrose 5%-Lactated Ringers 1,000 ML IV SCH ×2 (18:15→19:45)
[2021-04-04] MEDS: Dextrose 5%-Lactated Ringers 1,000 ML IV SCH ×2 (19:39→20:55)
--- NOTE | 2021-04-04 19:39 | CR ---
Chest: Portable view of the chest was obtained. Comparison: Prior chest x-ray of 09/23/20. Heart size and mediastinum are normal. Lungs are clear with no acute parenchymal change. Bony structures show nothing acute. Impression: 1. Nothing acute is seen on portable chest x-ray. Diagnostic code #1
[2021-04-04] MEDS ORDERED: LORazepam 2 MG/ML SDV IVPUSH STA (21:51)
[2021-04-04] MEDS ORDERED: Lactated Ringers 1,000 ML IV SCH (22:00)
[2021-04-05] MEDS ORDERED: LORazepam 2 MG/ML SDV IVPUSH STA (03:34)
[2021-04-05] MEDS ORDERED: Ondansetron 4 MG/2 ML SDV IVPUSH ONE (03:34)
== END 2021-04-05 06:47 | disposition home or self-care (01) ==
LOC: JD.ED 17:58
DX: F10.230 Alcohol dependence with withdrawal, uncomplicated (principal); F10.229 Alcohol dependence with intoxication, unspecified; E87.2 Acidosis; Z20.822 Contact with and (suspected) exposure to COVID-19; Y90.5 Blood alcohol level of 100-119 mg/100 ml; Z91.030 Bee allergy status; Z88.0 Allergy status to penicillin; Z91.013 Allergy to seafood
CPT/HCPCS: 36415; 71045; 80048; 80053; 80306; 80307; 81001; 82009; 83605; 83690; 83735; 85025; 85610; 85730; 86140; 86850; 86900; 86901; 87635; 93005; 96374; 96375; 96376; 99285; C9113; J2060; J2405; J2765; J3411; J7120; J7121; 93010; U0002

== ENCOUNTER 2021-04-26 11:12 | Emergency (ER) | payer MEDICAID ==
[2021-04-26] MEDS ORDERED: Ondansetron 4 MG/2 ML SDV IVPUSH ONE (12:08)
[2021-04-26] MEDS ORDERED: Sodium Chloride 0.9% 10 ML Syringe FLUSH PRN (12:08)
[2021-04-26] MEDS ORDERED: Sodium Chloride 0.9% 1,000 ML IV STA (12:08)
[2021-04-26] MEDS ORDERED: LORazepam 2 MG/ML SDV IVPUSH ONE ×2 (12:09→13:29)
[2021-04-26] MEDS ORDERED: Pantoprazole 40 MG Vial IVPUSH ONE (12:26)
[2021-04-26] MEDS ORDERED: Sodium Chloride 0.9% 1,000 ML IV ONE (13:28)
[2021-04-26] MEDS ORDERED: LORazepam 1 MG Tab PO ONE (14:16)
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
[2021-04-26] MEDS ORDERED: Famotidine 20 MG/2 ML SDV IVPUSH ONE (15:50)
== END 2021-04-26 16:06 | disposition home or self-care (01) ==
LOC: JD.ED 11:12
DX: F10.230 Alcohol dependence with withdrawal, uncomplicated (principal); K21.9 Gastro-esophageal reflux disease without esophagitis; Z91.030 Bee allergy status; Z88.0 Allergy status to penicillin; Z72.0 Tobacco use; Z91.013 Allergy to seafood; Z79.899 Other long term (current) drug therapy; Y90.0 Blood alcohol level of less than 20 mg/100 ml
CPT/HCPCS: 36415; 80053; 80306; 80307; 83690; 85025; 93005; 96374; 96375; 96376; 99285; A9270; C9113; J2060; J2405; J3490; J7030; 99283

== ENCOUNTER 2021-06-01 15:55 | Emergency (ER) | payer MEDICAID ==
[2021-06-01] MEDS ORDERED: Sodium Chloride 0.9% 10 ML Syringe FLUSH PRN (16:14)
[2021-06-01] MEDS ORDERED: Ondansetron 4 MG/2 ML SDV IVPUSH ONE (16:14)
[2021-06-01] MEDS ORDERED: LORazepam 2 MG/ML SDV IVPUSH ONE ×2 (16:15→18:41)
[2021-06-01] MEDS ORDERED: Lactated Ringers 1,000 ML IV SCH (16:15)
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
[2021-06-01] MEDS ORDERED: Lactated Ringers 1,000 ML IV ONE (17:54)
[2021-06-01] MEDS ORDERED: Metoclopramide 10 MG/2 ML SDV IVPUSH ONE (18:41)
== END 2021-06-01 19:15 | disposition home or self-care (01) ==
LOC: JD.ED 15:55
DX: F10.239 Alcohol dependence with withdrawal, unspecified (principal); K21.9 Gastro-esophageal reflux disease without esophagitis; Z91.030 Bee allergy status; Z88.0 Allergy status to penicillin; Z91.013 Allergy to seafood; Z79.899 Other long term (current) drug therapy; Z86.16 Personal history of COVID-19; Y90.5 Blood alcohol level of 100-119 mg/100 ml
CPT/HCPCS: 36415; 80053; 80306; 80307; 83735; 85025; 96374; 96375; 96376; 99284; J2060; J2405; J2765; J7120; 99283

== ENCOUNTER 2021-06-03 23:39 | Emergency (ER) | payer MEDICAID ==
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
[2021-06-04 02:04] LABS: ACETAMINOPHEN 0 ug/mL (10-30)
[2021-06-04] MEDS ORDERED: Potassium Chloride 20 MEQ Tab.ER PO ONE (03:26)
== END 2021-06-04 08:55 | disposition home or self-care (01) ==
LOC: JD.ED 23:39
DX: F10.129 Alcohol abuse with intoxication, unspecified (principal); E87.6 Hypokalemia; K21.9 Gastro-esophageal reflux disease without esophagitis; R00.0 Tachycardia, unspecified; Y90.0 Blood alcohol level of less than 20 mg/100 ml; Z72.0 Tobacco use; Z79.899 Other long term (current) drug therapy; Z91.030 Bee allergy status; Z88.0 Allergy status to penicillin; Z91.013 Allergy to seafood; Z86.16 Personal history of COVID-19
CPT/HCPCS: 36415; 80053; 80143; 80179; 80306; 80307; 84443; 85025; 93005; 93010; 99283; 99285-25; A9270-GY

== ENCOUNTER 2021-07-18 01:00 | Emergency (ER) | payer MEDICAID ==
[2021-07-18] MEDS ORDERED: LORazepam 2 MG/ML SDV IVPUSH ONE ×2 (01:29→02:32)
[2021-07-18] MEDS ORDERED: Sodium Chloride 0.9% 10 ML Syringe FLUSH PRN (01:29)
[2021-07-18] MEDS ORDERED: Sodium Chloride 0.9% 1,000 ML IV SCH (01:30)
[2021-07-18] MEDS ORDERED: Metoclopramide 10 MG/2 ML SDV IVPUSH ONE (02:32)
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
[2021-07-18] MEDS ORDERED: Lactated Ringers 1,000 ML IV ONE (03:14)
== END 2021-07-18 06:14 | disposition home or self-care (01) ==
LOC: JD.ED 01:00
DX: F10.129 Alcohol abuse with intoxication, unspecified (principal); F10.139 Alcohol abuse with withdrawal, unspecified; R11.2 Nausea with vomiting, unspecified; E86.0 Dehydration; K21.9 Gastro-esophageal reflux disease without esophagitis; Z91.030 Bee allergy status; Z88.0 Allergy status to penicillin; Z91.013 Allergy to seafood; Z79.899 Other long term (current) drug therapy; Z86.16 Personal history of COVID-19; Y90.5 Blood alcohol level of 100-119 mg/100 ml
CPT/HCPCS: 36415; 80053; 80307; 85025; 96374; 96375; 96376; 99285; J2060; J2765; J7030; J7120

== ENCOUNTER 2021-07-26 08:26 | Emergency (ER) | payer MEDICAID ==
[2021-07-26] MEDS ORDERED: LORazepam 2 MG/ML SDV IVPUSH ONE ×2 (08:38→10:12)
[2021-07-26] MEDS ORDERED: Ondansetron 4 MG/2 ML SDV IVPUSH ONE (08:38)
[2021-07-26] MEDS ORDERED: Famotidine 20 MG/2 ML SDV IVPUSH ONE (08:38)
[2021-07-26] MEDS ORDERED: Lactated Ringers 1,000 ML IV ONE (08:50)
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
== END 2021-07-26 11:56 | disposition home or self-care (01) ==
LOC: JD.ED 08:26
DX: F10.230 Alcohol dependence with withdrawal, uncomplicated (principal); R74.8 Abnormal levels of other serum enzymes; Z86.16 Personal history of COVID-19; Z91.030 Bee allergy status; Z88.0 Allergy status to penicillin; Z91.013 Allergy to seafood; Y90.0 Blood alcohol level of less than 20 mg/100 ml
CPT/HCPCS: 36415; 80053; 80307; 82009; 82803; 82947; 83690; 85025; 96374; 96375; 96376; 99284; J2060; J2405; J3490; J7120

== ENCOUNTER 2021-07-26 20:23 | Emergency (ER) | payer MEDICAID ==
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
[2021-07-26] MEDS ORDERED: Prochlorperazine 10 MG in Sodium Chloride 0.9% 50 ML IV ONE (23:13)
[2021-07-26] MEDS ORDERED: Lactated Ringers 1,000 ML IV ONE (23:14)
[2021-07-27] MEDS ORDERED: LORazepam 2 MG/ML SDV IVPUSH ONE (00:24)
[2021-07-27] MEDS ORDERED: Magnesium Sulfate/Water 2 GM in Premix Bag 1 BAG IV ONE (00:37)
[2021-07-27] MEDS ORDERED: Potassium Chloride 20 MEQ Tab.ER PO ONE ×2 (00:37→03:41)
[2021-07-27] MEDS ORDERED: Lactated Ringers 1,000 ML IV ONE (03:50)
== END 2021-07-27 05:55 | disposition home or self-care (01) ==
LOC: JD.ED 20:23
DX: E83.42 Hypomagnesemia (principal); E87.6 Hypokalemia; F10.139 Alcohol abuse with withdrawal, unspecified; Z87.891 Personal history of nicotine dependence; Z86.16 Personal history of COVID-19; Z91.030 Bee allergy status; Z88.0 Allergy status to penicillin; Z91.013 Allergy to seafood
CPT/HCPCS: 36415; 80053; 80307; 83690; 83735; 85025; 96365; 96367; 96375; 99284; A9270; J0780; J2060; J3475; J7120

== ENCOUNTER 2021-08-25 15:25 | Emergency (ER) | payer MEDICAID ==
[2021-08-25] MEDS ORDERED: LORazepam 2 MG/ML SDV IVPUSH ONE ×2 (16:01→17:39)
[2021-08-25] MEDS ORDERED: Thiamine 200 MG/2 ML MDV IVPUSH ONE (16:02)
[2021-08-25] MEDS ORDERED: Sodium Chloride 0.9% 10 ML Syringe FLUSH PRN (16:02)
[2021-08-25] MEDS ORDERED: Sodium Chloride 0.9% 1,000 ML IV SCH (16:15)
[2021-08-25] MEDS ORDERED: Ondansetron 4 MG/2 ML SDV IVPUSH ONE (16:19)
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
[2021-08-25] MEDS ORDERED: Lactated Ringers 1,000 ML IV ONE (17:39)
== END 2021-08-25 19:58 | disposition home or self-care (01) ==
LOC: JD.ED 15:25
DX: F10.230 Alcohol dependence with withdrawal, uncomplicated (principal); Z88.0 Allergy status to penicillin; Z91.030 Bee allergy status; Z91.013 Allergy to seafood; Y90.0 Blood alcohol level of less than 20 mg/100 ml
CPT/HCPCS: 36415; 80053; 80307; 85025; 96374; 96375; 96376; 99285; J2060; J2405; J3411; J7030; J7120

== ENCOUNTER 2021-09-05 14:36 | Emergency (ER) | payer MEDICAID ==
[2021-09-05] MEDS ORDERED: Sodium Chloride 0.9% 1,000 ML IV ONE (15:18)
[2021-09-05] MEDS ORDERED: Ondansetron 4 MG/2 ML SDV IVPUSH ONE (15:18)
[2021-09-05] MEDS ORDERED: LORazepam 2 MG/ML SDV IVPUSH STA (15:18)
[2021-09-05] MEDS ORDERED: Thiamine 200 MG/2 ML MDV IVPUSH STA (15:19)
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
== END 2021-09-05 17:55 | disposition home or self-care (01) ==
LOC: JD.ED 14:36
DX: R11.2 Nausea with vomiting, unspecified (principal); F10.129 Alcohol abuse with intoxication, unspecified; K21.9 Gastro-esophageal reflux disease without esophagitis; Z88.0 Allergy status to penicillin; Z91.030 Bee allergy status; Z91.013 Allergy to seafood; Z87.891 Personal history of nicotine dependence; Y90.5 Blood alcohol level of 100-119 mg/100 ml
CPT/HCPCS: 36415; 80053; 80307; 83735; 85007; 85027; 96374; 96375; 99284; J2060; J2405; J3411; J7030

== ENCOUNTER 2021-09-12 20:36 | Emergency (ER) | payer MEDICAID ==
[2021-09-12] MEDS ORDERED: LORazepam 2 MG/ML SDV IVPUSH ONE (21:08)
[2021-09-12] MEDS ORDERED: Ondansetron 4 MG/2 ML SDV IVPUSH ONE ×2 (21:08→21:10)
[2021-09-12] MEDS ORDERED: Lactated Ringers 1,000 ML IV ONE ×2 (21:10→23:36)
[2021-09-12] MEDS ORDERED: Lactated Ringers 1,000 ML IV SCH (21:15)
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
[2021-09-12] MEDS ORDERED: Thiamine 200 MG/2 ML MDV IVPUSH ONE (22:26)
[2021-09-12] MEDS ORDERED: Folic Acid 1 MG Tab PO ONE (22:27)
[2021-09-12] MEDS ORDERED: Magnesium Sulfate/Water 2 GM in Premix Bag 1 BAG IV ONE (22:28)
[2021-09-12] MEDS ORDERED: LORazepam 1 MG Tab PO ONE (22:28)
[2021-09-13] MEDS ORDERED: Magnesium Sulfate/Water 2 GM in Premix Bag 1 BAG IV ONE (01:08)
[2021-09-13] MEDS ORDERED: LORazepam 1 MG Tab PO ONE (05:22)
[2021-09-13] MEDS ORDERED: Ondansetron 4 MG/2 ML SDV IVPUSH ONE (05:55)
== END 2021-09-13 06:15 | disposition home or self-care (01) ==
LOC: JD.ED 20:36
DX: F10.230 Alcohol dependence with withdrawal, uncomplicated (principal); Z91.013 Allergy to seafood; Z91.030 Bee allergy status; Z88.0 Allergy status to penicillin; Z91.038 Other insect allergy status; Z86.16 Personal history of COVID-19
CPT/HCPCS: 36415; 80053; 80307; 82977; 83690; 83735; 85025; 85610; 96365; 96366; 96375; 96376; 99285; A9270; J2060; J2405; J3411; J3475; J7120

== ENCOUNTER 2021-10-18 03:20 | Emergency (ER) | payer MEDICAID ==
[2021-10-18] MEDS ORDERED: Ondansetron 4 MG/2 ML SDV IVPUSH ONE ×2 (03:38→05:42)
[2021-10-18] MEDS ORDERED: Sodium Chloride 0.9% 1,000 ML IV ONE ×3 (03:38→06:21)
[2021-10-18] MEDS ORDERED: LORazepam 2 MG/ML SDV IVPUSH STA (03:38)
[2021-10-18] MEDS ORDERED: Thiamine 200 MG/2 ML MDV IVPUSH STA (03:39)
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
[2021-10-18] MEDS ORDERED: Famotidine 20 MG/2 ML SDV IVPUSH STA (06:04)
[2021-10-18] MEDS ORDERED: diphenhydrAMINE 50 MG/ML SDV IVPUSH ONE (07:03)
[2021-10-18] MEDS ORDERED: LORazepam 2 MG/ML SDV IVPUSH ONE (07:03)
[2021-10-18] MEDS ORDERED: Metoclopramide 10 MG/2 ML SDV IVPUSH ONE (07:03)
[2021-10-18] MEDS ORDERED: Dextrose 5%-Lactated Ringers 1,000 ML IV SCH (07:15)
[2021-10-18] MEDS: Potassium Chloride 10 MEQ in Premix Bag 1 BAG IV SCH ×2 (07:22→08:46)
== END 2021-10-18 10:06 | disposition home or self-care (01) ==
LOC: JD.ED 03:20
DX: F10.239 Alcohol dependence with withdrawal, unspecified (principal); K29.20 Alcoholic gastritis without bleeding; Z88.0 Allergy status to penicillin; Z91.030 Bee allergy status; Z91.013 Allergy to seafood; Z87.891 Personal history of nicotine dependence; Z79.899 Other long term (current) drug therapy; Z86.16 Personal history of COVID-19; Y90.1 Blood alcohol level of 20-39 mg/100 ml
CPT/HCPCS: 36415; 80048; 80053; 80307; 82009; 83690; 83735; 85025; 96365; 96366; 96375; 96376; 99285; J1200; J2060; J2405; J2765; J3411; J3480; J3490; J7030

== ENCOUNTER 2021-10-28 13:15 | Emergency (ER) | payer MEDICAID ==
[2021-10-28] MEDS ORDERED: Pantoprazole 40 MG Vial IVPUSH ONE (13:35)
[2021-10-28] MEDS ORDERED: LORazepam 2 MG/ML SDV IVPUSH ONE (13:35)
[2021-10-28] MEDS ORDERED: Sodium Chloride 0.9% 1,000 ML IV ONE (13:35)
[2021-10-28] MEDS ORDERED: Ondansetron 4 MG/2 ML SDV IVPUSH ONE (13:36)
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
== END 2021-10-28 16:35 | disposition home or self-care (01) ==
LOC: JD.ED 13:15 → SUPCPDRO 13:15 → JD.ED 16:35
DX: F10.139 Alcohol abuse with withdrawal, unspecified (principal); Z88.0 Allergy status to penicillin; Z91.030 Bee allergy status; Z91.013 Allergy to seafood; Z86.16 Personal history of COVID-19; Y90.0 Blood alcohol level of less than 20 mg/100 ml
CPT/HCPCS: 36415; 80053; 80307; 82009; 82803; 83690; 85025; 85610; 96374; 96375; 99285; C9113; J2060; J2405; J7030

== ENCOUNTER 2022-02-21 10:10 | Emergency (ER) | payer SELFPAY ==
[2022-02-21] MEDS ORDERED: Sodium Chloride 0.9% 1,000 ML IV ONE (10:26)
[2022-02-21] MEDS ORDERED: LORazepam 2 MG/ML SDV IVPUSH ONE (10:26)
[2022-02-21] MEDS ORDERED: Ondansetron 4 MG/2 ML SDV IVPUSH ONE (11:38)
== END 2022-02-21 14:32 | disposition home or self-care (01) ==
LOC: JD.ED 10:10
DX: F10.139 Alcohol abuse with withdrawal, unspecified (principal); Z88.0 Allergy status to penicillin; Z91.013 Allergy to seafood; Z91.030 Bee allergy status; Y90.0 Blood alcohol level of less than 20 mg/100 ml
CPT/HCPCS: 36415; 80053; 80307; 85007; 85027; 96374; 96375; 99284; J2060; J2405; J7030

== ENCOUNTER 2022-04-01 12:26 | Emergency (ER) | payer MEDICAID ==
[2022-04-01] MEDS ORDERED: Ondansetron 4 MG/2 ML SDV IVPUSH ONE (13:11)
[2022-04-01] MEDS ORDERED: LORazepam 2 MG/ML SDV IVPUSH ONE ×2 (13:11→14:37)
[2022-04-01] MEDS ORDERED: Sodium Chloride 0.9% 1,000 ML IV ONE ×2 (13:11→14:00)
[2022-04-01] MEDS ORDERED: Sodium Chloride 0.9% 10 ML Syringe FLUSH PRN (13:16)
== END 2022-04-01 16:35 | disposition home or self-care (01) ==
LOC: JD.ED 12:26
DX: F10.230 Alcohol dependence with withdrawal, uncomplicated (principal); Z88.0 Allergy status to penicillin; Z91.030 Bee allergy status; Z91.013 Allergy to seafood; Z86.16 Personal history of COVID-19; Y90.0 Blood alcohol level of less than 20 mg/100 ml
CPT/HCPCS: 36415; 80053; 80143; 80179; 80306; 80307; 81001; 83735; 84443; 85025; 96361; 96374; 96375; 96376; 99285; J2060; J2405; J3490; J7030

== ENCOUNTER 2022-04-02 12:19 | Emergency (ER) | payer MEDICAID ==
[2022-04-02] MEDS ORDERED: Sodium Chloride 0.9% 10 ML Syringe FLUSH PRN (12:38)
[2022-04-02] MEDS ORDERED: Ondansetron 4 MG/2 ML SDV IVPUSH ONE (12:38)
[2022-04-02] MEDS ORDERED: LORazepam 1 MG Tab PO ONE (12:40)
[2022-04-02] MEDS ORDERED: Sodium Chloride 0.9% 1,000 ML IV SCH (12:45)
[2022-04-02] MEDS ORDERED: LORazepam 2 MG/ML SDV IVPUSH ONE (13:56)
== END 2022-04-02 15:00 | disposition home or self-care (01) ==
LOC: JD.ED 12:19
DX: F10.230 Alcohol dependence with withdrawal, uncomplicated (principal); Z91.030 Bee allergy status; Z88.0 Allergy status to penicillin; Z91.013 Allergy to seafood; Z86.16 Personal history of COVID-19; Y90.0 Blood alcohol level of less than 20 mg/100 ml
CPT/HCPCS: 36415; 80053; 80307; 83735; 85025; 96361; 96374; 96375; 99285; A9270; J2060; J2405; J3490; J7030

== ENCOUNTER 2022-04-25 23:51 | Emergency (ER) | payer MEDICAID ==
[2022-04-26] MEDS ORDERED: Sodium Chloride 0.9% 1,000 ML IV ONE (00:43)
[2022-04-26] MEDS ORDERED: Ondansetron 4 MG/2 ML SDV IVPUSH ONE (00:43)
[2022-04-26] MEDS ORDERED: LORazepam 2 MG/ML SDV IVPUSH STA ×2 (00:43→01:34)
== END 2022-04-26 03:07 | disposition home or self-care (01) ==
LOC: JD.ED 23:51
DX: F10.230 Alcohol dependence with withdrawal, uncomplicated (principal); R11.2 Nausea with vomiting, unspecified; Z91.030 Bee allergy status; Z91.038 Other insect allergy status; Z88.0 Allergy status to penicillin; Z91.013 Allergy to seafood
CPT/HCPCS: 36415; 80053; 80307; 83735; 85025; 96361; 96374; 96375; 96376; 99285; J2060; J2405; J7030

== ENCOUNTER 2022-05-11 08:23 | Emergency (ER) | payer MEDICAID ==
[2022-05-11] MEDS ORDERED: LORazepam 2 MG/ML SDV IVPUSH ONE ×4 (08:50→13:29)
[2022-05-11] MEDS ORDERED: Sodium Chloride 0.9% 10 ML Syringe FLUSH PRN (08:50)
[2022-05-11] MEDS ORDERED: Ondansetron 4 MG/2 ML SDV IVPUSH ONE ×2 (08:50→12:39)
[2022-05-11] MEDS ORDERED: Sodium Chloride 0.9% 1,000 ML IV SCH (09:00)
[2022-05-11] MEDS ORDERED: Lactated Ringers 1,000 ML IV ONE ×2 (09:52→11:19)
[2022-05-11] MEDS ORDERED: Thiamine 200 MG/2 ML MDV IM ONE (12:58)
== END 2022-05-11 14:35 | disposition home or self-care (01) ==
LOC: JD.ED 08:23
DX: F10.230 Alcohol dependence with withdrawal, uncomplicated (principal); E86.0 Dehydration; F17.210 Nicotine dependence, cigarettes, uncomplicated; Z88.0 Allergy status to penicillin; Z91.030 Bee allergy status; Z91.013 Allergy to seafood; Z86.16 Personal history of COVID-19; Y90.0 Blood alcohol level of less than 20 mg/100 ml
CPT/HCPCS: 36415; 80053; 80307; 83735; 85025; 96361; 96372; 96374; 96375; 96376; 99284; J2060; J2405; J3411; J3490; J7030; J7120

== ENCOUNTER 2022-05-28 14:47 | Emergency (ER) | payer MEDICAID ==
[2022-05-28] MEDS ORDERED: Lidocaine 1% 10 ML MDV INJECT ONE (15:27)
== END 2022-05-28 15:54 | disposition home or self-care (01) ==
LOC: JD.ED 14:47
DX: S01.81XA Laceration without foreign body of other part of head, initial encounter (principal); Z91.030 Bee allergy status; Z88.0 Allergy status to penicillin; Z91.013 Allergy to seafood; Z86.16 Personal history of COVID-19; W26.0XXA Contact with knife, initial encounter
CPT/HCPCS: 12001; 12011; 99282

== ENCOUNTER 2022-06-30 14:11 | Emergency (ER) | payer MEDICAID ==
[2022-06-30] MEDS ORDERED: Metoclopramide 10 MG/2 ML SDV IVPUSH ONE (14:35)
[2022-06-30] MEDS ORDERED: Thiamine 200 MG/2 ML MDV IVPUSH ONE (14:35)
[2022-06-30] MEDS ORDERED: LORazepam 2 MG/ML SDV IVPUSH ONE (14:35)
[2022-06-30] MEDS ORDERED: diphenhydrAMINE 50 MG/ML SDV IVPUSH ONE (14:36)
[2022-06-30] MEDS ORDERED: Dextrose 5%-Lactated Ringers 1,000 ML IV SCH (14:45)
[2022-06-30 15:26] LABS: ESTIMATED GFR 112 mL/min (>60)
[2022-06-30 15:33] LABS: ACETAMINOPHEN 0 ug/mL (10-30)
== END 2022-06-30 16:57 | disposition home or self-care (01) ==
LOC: JD.ED 14:11
DX: F10.230 Alcohol dependence with withdrawal, uncomplicated (principal); F17.210 Nicotine dependence, cigarettes, uncomplicated; Z91.030 Bee allergy status; Z88.0 Allergy status to penicillin; Z88.1 Allergy status to other antibiotic agents; Z91.013 Allergy to seafood; Z86.16 Personal history of COVID-19
CPT/HCPCS: 36415; 80053; 80143; 80179; 80306; 80307; 82009; 83605; 83690; 83735; 85025; 85610; 85730; 86140; 96361; 96374; 96375; 99284; J1200; J2060; J2765; J3411; J7121; 99283

== ENCOUNTER 2024-10-20 15:11 | Inpatient (IN) | payer BC, MEDICAID, OTHER ==
[2024-10-20] MEDS: LORazepam 2 MG/ML SDV IVPUSH ONE ×2 (15:23→18:47)
[2024-10-20] MEDS ORDERED: Magnesium Sulfate (4.06 MEQ/ML) 5 GM/10 ML SDV IV ONE (15:38)
[2024-10-20] MEDS: Ondansetron 4 MG/2 ML SDV IVPUSH ONE ×2 (15:45→16:02)
[2024-10-20] MEDS: Folic Acid 50 MG/10 ML MDV IV STA (15:46)
[2024-10-20] MEDS: Sodium Chloride 0.9% 1,000 ML IV ONE (15:46)
[2024-10-20] MEDS: Thiamine 200 MG/2 ML MDV IVPUSH ONE (15:47)
[2024-10-20] MEDS: MVI, Adult with Vitamin K 10 ML in Sodium Chloride 0.9% 1,000 ML IV ONE (16:01)
[2024-10-20] MEDS: Magnesium Sulfate/Water Premix 2 GM in Premix Bag 1 BAG IV ONE (16:12)
[2024-10-20 16:43] LABS: BASOPHILS PERCENT AUTO 0.2 % (0.0-1.0); HEMATOCRIT 37.2 % (42.0-52.0); HEMOGLOBIN 12.9 gm/dl (14.0-18.0); IMMATURE GRAN ABSOLUTE AUTO 0.01 K/mm3 (0.00-0.05); IMMATURE GRAN PERCENT AUTO 0.2 % (0.0-0.4); LYMPHOCYTES ABSOLUTE AUTO 0.2 K/mm3 (1.0-4.8); LYMPHOCYTES PERCENT AUTO 4.1 % (24.0-44.0); MEAN CORPUSCULAR HEMOGLOBIN 31.4 pg (28.0-32.0); MEAN CORPUSCULAR HGB CONC 34.7 g/dl (32.0-36.0); MEAN CORPUSCULAR VOLUME 90.5 fl (83.0-99.0); MEAN PLATELET VOLUME 9.5 fl (9.4-12.4); MONOCYTES ABSOLUTE AUTO 0.4 K/mm3 (0.0-0.8); MONOCYTES PERCENT AUTO 6.2 % (0.0-8.0); NEUTROPHILS ABSOLUTE AUTO 5.2 K/mm3 (1.8-7.7); NEUTROPHILS PERCENT AUTO 89.3 % (41.0-71.0); PLATELET COUNT,PLT 146 K/mm3 (150-400); RED BLOOD CELL COUNT 4.11 M/mm3 (4.52-5.90); WHITE BLOOD CELL COUNT,WBC 5.79 K/mm3 (3.9-11.3)
[2024-10-20 17:08] LABS: A/G RATIO 1.1 (1-2); ALBUMIN 3.3 g/dl (3.4-5.0); ANION GAP 18.6 (5-15); BILIRUBIN TOTAL 2.4 mg/dL (0.2-1.0); BUN/CREATININE RATIO 26.3 (14-18); CALCIUM 7.9 mg/dL (8.5-10.1); CREATININE 0.8 mg/dL (0.7-1.3); EST CRCL DRUG DOSING (CG) 120.84 mL/min; ETHANOL BLOOD MEDICAL 0.08 gm% (0.00); MAGNESIUM 1.8 mg/dL (1.8-2.4); POTASSIUM,K 3.6 mEq/L (3.5-5.1); PROTEIN TOTAL,TP 6.4 g/dl (6.4-8.2)
[2024-10-20] MEDS: LORazepam 2 MG/ML SDV IV PRN ×2 (19:11→20:16)
[2024-10-20] MEDS: Pantoprazole 40 MG in Sodium Chloride 0.9% 10 ML IV ONE (19:26)
[2024-10-20] MEDS: Pantoprazole 40 MG in Sodium Chloride 0.9% 100 ML IV ONE (19:41)
[2024-10-20] MEDS: Sodium Chloride 0.9% 1,000 ML IV SCH (19:54)
[2024-10-20] MEDS: Apixaban 5 MG Tab PO SCH (20:39)
[2024-10-20] MEDS: Ondansetron 4 MG Tab.DIS PO PRN (21:23)
[2024-10-20] MEDS: Acetaminophen 325 MG Tab PO PRN (21:30)
[2024-10-20 22:25] LABS: BARBITURATE SCREEN,URINE NEGATIVE (CUTOFF=200); BENZODIAZEPINES SCREEN,URINE PRESUMPTIVE POSITIVE (CUTOFF=150); BUPRENORPHINE SCREEN,URINE NEGATIVE (CUTOFF=10); METHADONE SCREEN, URINE NEGATIVE (CUT0FF=200); METHAMPHETAMINES SCREEN, URINE NEGATIVE (CUTOFF=500); OXYCODONE SCREEN,URINE NEGATIVE (CUT0FF=100); THC SCREEN,URINE 20 NG/ML NEGATIVE (CUTOFF=50)
[2024-10-20 22:28] LABS: AMPHETAMINES SCREEN, URINE NEGATIVE (CUTOFF=500)
[2024-10-21] MEDS: PHENobarbital Sodium 65 MG/ML SDV IVPUSH ONE (01:55)
[2024-10-21 05:39] LABS: BASOPHILS PERCENT AUTO 0.4 % (0.0-1.0); EOSINOPHILS ABSOLUTE AUTO 0.1 K/mm3 (0.0-0.4); EOSINOPHILS PERCENT AUTO 2.6 % (0.0-6.0); HEMATOCRIT 35.5 % (42.0-52.0); IMMATURE GRAN ABSOLUTE AUTO 0.01 K/mm3 (0.00-0.05); IMMATURE GRAN PERCENT AUTO 0.2 % (0.0-0.4); LYMPHOCYTES ABSOLUTE AUTO 0.8 K/mm3 (1.0-4.8); LYMPHOCYTES PERCENT AUTO 14.8 % (24.0-44.0); MEAN CORPUSCULAR HEMOGLOBIN 30.8 pg (28.0-32.0); MEAN CORPUSCULAR HGB CONC 33.8 g/dl (32.0-36.0); MEAN PLATELET VOLUME 9.6 fl (9.4-12.4); MONOCYTES ABSOLUTE AUTO 0.4 K/mm3 (0.0-0.8); MONOCYTES PERCENT AUTO 6.4 % (0.0-8.0); NEUTROPHILS ABSOLUTE AUTO 4.2 K/mm3 (1.8-7.7); NEUTROPHILS PERCENT AUTO 75.6 % (41.0-71.0); PLATELET COUNT,PLT 122 K/mm3 (150-400); WHITE BLOOD CELL COUNT,WBC 5.49 K/mm3 (3.9-11.3)
[2024-10-21 06:15] LABS: A/G RATIO 1.1 (1-2); ANION GAP 10.6 (5-15); BILIRUBIN TOTAL 4.4 mg/dL (0.2-1.0); BUN/CREATININE RATIO 26.3 (14-18); CREATININE 0.8 mg/dL (0.7-1.3); EST CRCL DRUG DOSING (CG) 117.18 mL/min; POTASSIUM,K 3.6 mEq/L (3.5-5.1); PROTEIN TOTAL,TP 5.7 g/dl (6.4-8.2)
[2024-10-21] MEDS: Pantoprazole 40 MG Tab.CR PO SCH (06:23)
[2024-10-21] MEDS: Potassium Chloride 20 MEQ Tab.ER PO ONE (08:11)
[2024-10-21] MEDS: Folic Acid 1 MG Tab PO SCH (08:12)
[2024-10-21] MEDS: Multivitamin Tab PO SCH (08:12)
[2024-10-21] MEDS: Thiamine 100 MG Tab PO SCH (08:12)
[2024-10-21] MEDS ORDERED: Enoxaparin 40 MG/0.4 ML Syringe SUBCUT SCH (09:00)
[2024-10-21] MEDS ORDERED: Sennosides/Docusate Sodium 50-8.6 MG Tab PO PRN (17:35)
[2024-10-22 06:39] LABS: ANION GAP 14.4 (5-15); BUN/CREATININE RATIO 17.1 (14-18); CALCIUM 8.3 mg/dL (8.5-10.1); CREATININE 0.7 mg/dL (0.7-1.3); EST CRCL DRUG DOSING (CG) 133.92 mL/min; MAGNESIUM 1.8 mg/dL (1.8-2.4); PHOSPHORUS 3.2 mg/dL (2.6-4.7); POTASSIUM,K 3.4 mEq/L (3.5-5.1)
[2024-10-22] MEDS ORDERED: Magnesium Sulfate (4.06 MEQ/ML) 5 GM/10 ML SDV IV ONE (08:15)
[2024-10-22] MEDS: Magnesium Sulfate/Water Premix 2 GM in Premix Bag 1 BAG IV ONE (08:21)
[2024-10-22] MEDS: Potassium Chloride 20 MEQ Tab.ER PO ONE (08:22)
[2024-10-22] MEDS: Nicotine Polacrilex 2 MG Gum CHEW PRN (18:42)
[2024-10-23 05:40] LABS: ANION GAP 12.8 (5-15); BUN/CREATININE RATIO 24.3 (14-18); CALCIUM 8.5 mg/dL (8.5-10.1); CREATININE 0.7 mg/dL (0.7-1.3); EST CRCL DRUG DOSING (CG) 133.92 mL/min; MAGNESIUM 1.9 mg/dL (1.8-2.4); POTASSIUM,K 3.8 mEq/L (3.5-5.1)
[2024-10-23] MEDS: Sodium Chloride 0.9% 250 ML ONE (08:22)
[2024-10-23] MEDS: Potassium Chloride 20 MEQ Tab.ER PO ONE (08:22)
== END 2024-10-23 09:40 | disposition home or self-care (01) | DRG 897 ==
LOC: JD.ED 15:11 → JD.ICU 18:02
PROVIDERS: ADMIT Family Medicine; ATTEND Student in an Organized Health Care Education/Training Program
DX: F10.231 Alcohol dependence with withdrawal delirium (principal); K21.9 Gastro-esophageal reflux disease without esophagitis; F41.9 Anxiety disorder, unspecified; F15.90 Other stimulant use, unspecified, uncomplicated; I10 Essential (primary) hypertension; K29.20 Alcoholic gastritis without bleeding; R79.89 Other specified abnormal findings of blood chemistry; F17.210 Nicotine dependence, cigarettes, uncomplicated; E86.0 Dehydration; Z88.1 Allergy status to other antibiotic agents; Z91.030 Bee allergy status; Z88.0 Allergy status to penicillin; Z91.013 Allergy to seafood; Z79.01 Long term (current) use of anticoagulants; Z79.899 Other long term (current) drug therapy
CPT/HCPCS: 36415; 80048; 80053; 80306; 80307; 82550; 83690; 83735; 84100; 85025; 93005; 96365; 96367; 96375; 99285-25; A9270-GY; J2060; J2405; J2470; J2560; J3411; J3475; J3490; J7030